=== PATIENT | female | born 2000 | race Caucasian/White ===

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

== ENCOUNTER → 2018-02-09 16:47 | Outpatient (CLI) | payer MEDICAID, SELFPAY | PROVIDERS: Visit Provider Obstetrics & Gynecology | DX: Z34.80 Encounter for supervision of other normal pregnancy, unspecified trimester (principal); Z34.90 Encounter for supervision of normal pregnancy, unspecified, unspecified trimester | CPT/HCPCS: 86403 ==

== ENCOUNTER 2018-02-18 12:57 | Outpatient (CLI) | payer MEDICAID, SELFPAY ==
[2018-02-18 13:19] VITALS: BP 148/78; PULSE 81; RESP 22; TEMP 36.6; O2SAT 96; BMI 35.3
[2018-02-18 13:33] LABS: Microscopic, Urine URINE MICROSCOPIC (MICROSCOPIC)
[2018-02-18 13:40] LABS: Appearance,Urine SL CLOUDY (Clear); Bilirubin,Urine Negative (Negative); Blood, Urine TRACE-I (Negative); Color,Urine YELLOW (Yellow); Glucose,Urine (UA) Negative (Negative); Ketones,Urine Negative (Negative); Leukocyte Esterase,Urine 1+ (Negative); Nitrate,Urine Negative (Negative); Protein,Urine Negative (Negative); Specific Gravity, Urine 1.015 (1.005-1.030); Urobilinogen,Urine 0.2 EU/dl (0.2)
[2018-02-18 13:52] LABS: Bacteria,Urine 4+ /lpf
== END 2018-02-18 14:20 | disposition home or self-care (01) ==
LOC: OBOUT 12:59 → OB 12:59
PROVIDERS: PCP Family Medicine; Visit Provider Nurse Practitioner Obstetrics & Gynecology
DX: O60.03 Preterm labor without delivery, third trimester (principal); Z3A.37 37 weeks gestation of pregnancy
CPT/HCPCS: 59025; 81001; 87086; 96372

== ENCOUNTER 2018-02-18 18:22 | Inpatient (IN) ==
[2018-02-18 19:32] LABS: Amphetamine/Metha Screen,Urine Negative ng/mL (<1000); Barbiturates Screen,Urine Negative ng/mL (<200); Benzodiazepines Screen,Urine Negative ng/mL (<200); Cannabinoid Screen,Urine Positive ng/mL (<50); Cocaine Screen,Urine Negative ng/mL (<300); Methadone Screen,Urine Negative ng/mL (<300); Opiate Screen,Urine Negative ng/mL (<300); Phencyclidine Screen,Urine Negative ng/mL (<25)
[2018-02-18 23:55] LABS: Basophils % 0.1 % (0.1-2.0); Eosinophils % 0.1 % (0.1-12.0); Hematocrit 38.5 % (37.0-47.0); Hemoglobin 12.7 g/dL (12.2-16.2); Lymphocytes # 0.9 K/mm3 (0.7-4.5); Mean Corpuscular HGB Conc 33.1 g/dL (31.8-35.4); Mean Corpuscular Volume 84.6 fl (81-99); Mean Platelet Volume 6.5 fl (7.4-10.4); Monocytes # 0.4 K/mm3 (0.1-1.0); Monocytes % 1.7 % (1.7-9.3); Neutrophils % 94.1 % (37.0-80.0); Platelet Count 399 K/mm3 (142-424); Red Blood Count 4.55 M/mm3 (4.20-5.40); Red Cell Distribution Width 13.3 % (11.5-17.5)
[2018-02-18 23:57] LABS: White Blood Count 22.3 K/mm3 (4.5-13.0)
[2018-02-19 00:19] LABS: Lymphocytes % 4 % (10-50); Monocytes % 1 % (2-9); Neutrophils % 84 % (42-76); RBC Morphology Normal; Rouleaux 1+; Total Cells Counted 100
--- NOTE | 2018-02-19 01:23 | Progress Note ---
[facility] Anesthesia Checklist - Patient Identification Patient Identification: Arm Band, Verbal (Name & ) - Structural Data Admitted From: Inpatient Planned Operative Procedure/s: labor epidural Consent for Planned Operative Procedure(s) Verified: Yes Verified Documents: Surgical Consent, History and Physical - Chart Verification Results Verified: CBC - Additional verifications Patient : Yes Anesthesia Reactions: No - Airway Assessment C-Spine Mobility Assessed: Yes TMJ Mobility Assessed: Yes Dentition: Good Dentition - Neurological Assessment Level of Consciousness: Awake Hx Seizures: No Numbness or tingling in extremities: No - Anesthesia Plan Anesthesia Risk discussed: Yes Anesthesia Plan: Verified ASA Class: III Anesthesia Type: Epidural [facility] History I have reviewed the patient's past medical history: Yes Medical History: Reports:: Asthma, Depression Denies:: Diabetes Mellitus Type 1, Hyperlipidemia, Hypertension, MRSA, Sei zures Other Medical History: Reports: Other (self mutilation) Laterality Cases: Bilateral: Tonsillectomy Other Surgeries: Yes: Colonoscopy. No: Amputation: No Fractures: No - *Social History Smoking Status: Current every day smoker Tobacco Type: cigarettes Alcohol Intake: never Substance Use Type: marijuana Occupational Status: employed Housing: house Household Members: family - Psychiatric History Pschychiatric History:: Reports:: Depression *Family Hx:: Cancer, Heart Attack, Diabetes, Hypertension, Asthma Para: 0
--- NOTE | 2018-02-19 05:27 | History & Physical Report ---
OB - H&P: HPI Antepartum - History of Present Illness Chief complaint: Contractions History of present illness: She is a 17-year-old 1 para 0 at 37+ weeks gestational age. She came in having early contractions today afternoon and received 1 dose of Brethine but was discharged home. She did not change her cervix. She subsequently was readmitted with active labor and was found to be 3-4 cm dilated. We attempted to stop her labor but she progressed. As a result of that we will expect a vaginal delivery. - History of Present Criteria for establishing EDC:: LMP confirmed by 1st trimester US care: good care Ultrasounds: normal 1st trimester US, normal mid trimester US Obstetrical complications: none Medical complications: other [facility] History I have reviewed the patient's past medical history: Yes Medical History: Reports:: Asthma, Depression Denies:: Diabetes Mellitus Type 1, Hyperlipidemia, Hypertension, MRSA, Seizures Other Medical History: Reports: Other (self mutilation) Laterality Cases: Bilateral: Tonsillectomy Other Surgeries: Yes: Colonoscopy. No: Amputation: No Fractures: No - *Social History Smoking Status: Current every day smoker Tobacco Type: cigarettes Alcohol Intake: never Substance Use Type: marijuana Occupational Status: employed Housing: house Household Members: family - Psychiatric History Pschychiatric History:: Reports:: Depression *Family Hx:: Cancer, Heart Attack, Diabetes, Hypertension, Asthma Para: 0 Review of Systems - Review of Systems Review of systems:: pertinent systems reviewed and negative unless documented below Meds Home Medications Medication Instructions Recorded Confirmed Type 1 tab PO QHS 08/08/17 02/18/18 History vitamin,calcium,vcuquwgn-hrcb-utuds acid tablet Citalopram Hydrobromide [Celexa] 40 mg PO DAILY 02/18/18 02/18/18 History Allergies Allergy/AdvReac Type Severity Reaction Status Date / Time No Known Allergies Allergy Verified 02/15/18 12:05 OB - H&P: Exam - Physical Exam Vital signs: Temp Pulse Resp BP Pulse Ox 98.1 F 95 H 20 158/97 H 100 02/18/18 18:39 02/18/18 18:39 02/18/18 18:39 02/18/18 18:39 02/18/18 18:39 - Constitutional no acute distress - Routine HEENT Exam Head: Present: normocephalic Eye: Present: EOMI, PERRL ENT: Present: mucous membranes moist - Routine Neck Exam Present: supple, full ROM - Routine Respiratory Exam Absent: accessory muscle use (good air entry bilaterally), respiratory distress, wheezes, crackles - Routine Cardiovascular Exam Present: RRR. Absent: murmur - Routine Abdominal Exam Present: soft, normoactive bowel sounds. Absent: tenderness, distended, guarding - Routine Rectal Exam Patient deferred: visual exam, digital exam - Routine Exam Patient deferred: external exam, groin exam, perineal exam - Routine Extremities Exam Present: full ROM. Absent: cyanosis, edema - Routine Skin Exam Present: intact. Absent: cyanosis - Routine Neurological Exam Present: alert, oriented X3 - Routine Psychiatric Exam Present: normal affect OB - Results - Labs Labs: Short CBC 02/18/18 Range/Units 23:40 WBC 22.3 H* (4.5-13.0) K/mm3 Hgb 12.7 (12.2-16.2) g/dL Hct 38.5 (37.0-47.0) % Plt Count 399 (142-424) K/mm3 OB - A/P Antepartum (1) Maternal obesity syndrome, antepartum Current visit: Yes Status: Acute (2) Depression affecting Problem details: Celexa Current visit: No Status: Acute (3) Intrauterine in teenager Current visit: No Status: Acute (4) Rsatb-fwg-wquwy fetus Current visit: No Status: Acute (5) Normal delivery at term Current visit: Yes Status: Acute - Additional Plan Planning to breastfeed?: No Plan: expectant management Additional Information:: She is in active labor and has progressed to full dilation under labor epidural. We will expect a vaginal delivery.
--- NOTE | 2018-02-19 05:28 | Progress Note ---
Labor Note - Subjective: Date: 02/19/18 Time: 05:27 regular contraction - Objective: NST:: Reactive Contractions:: every 2-3 minutes Cervical Dilation:: 9-10 Effacement:: 100% Station: +2 Membranes: artificially ruptured Comment:: Clear fluid - Fetus: Monitoring?: Yes monitoring type:: External - Assessment: Labor progressing?: Yes Cephalopelvic disproportion?: No Patient Problems: All Active Problems UTI (urinary tract infection) (Acute) Sciatica (Acute) Abscess of skin or subcutaneous tissue (Acute) Maternal obesity syndrome, antepartum (Acute) Normal delivery at term (Acute) Jasxg-qty-wawvq fetus (Acute) Post traumatic stress disorder (PTSD) (Acute) Smoking (tobacco) complicating , second trimester (Acute) Depression affecting (Acute) History of self mutilation (Chronic) Medication exposure during first trimester of (Acute) Positive urine drug screen (Acute) Intrauterine in teenager (Acute) (Acute) Hand contusion (Acute) - Plan: Anesthesia for epidural?: Yes Continue to labor down?: Yes Plan for ?: No Continue to monitor?: Yes Start pushing?: Yes Comment:: She is fully dilated and station +2. I ruptured her membranes and there was a small amount of clear fluid. We will have her start pushing and expect vaginal delivery.
--- NOTE | 2018-02-19 05:51 | Procedure Note ---
- Delivery Note Delivery Date:: 02/19/18 Delivery Time:: 05:34 Anesthesia Type: Epidural Was labor medically induced?: No Induction method: none Gestational age (weeks): 37 delivered prior to 39 weeks?: Yes Justification for early elective delivery:: Active Labor Infant Gender: Female at 1 minute: 7 at 5 minutes: 9 LAC or MLE?: LAC Delivery Procedure:: She is a 17-year-old 1 para 0 at 37 and 5 weeks gestational age. She came in in active labor. She progressed under labor epidural to full dilation and delivered spontaneously a live born female child at 5:34 AM on the morning of February 19, 2018. On deliver the head the anterior shoulder then rapidly delivered followed by the rest of the infant's body atraumatically. The baby cried spontaneously. The oropharynx and nasopharynx were bulb suction. We allow the cord to continue to pulsate for approximately 1 minute. We then doubly clamped the cord and cut the cord and the baby was placed on the mother's abdomen for further care. The nurses assigned Apgars of 7 at 1 minute and 9 at 5 minutes. We then obtained cord blood as well as cord pH. Using gentle traction on the cord and countertraction the fundus I was able to easily deliver the placenta intact. He had a normal three-vessel cord. She had a small second-degree tear that was repaired with 3-0 Vicryl Rapide suture to the superficial tissues in 2-0 Vicryl to suture to the deep tissues. She has a positive blood, she is rubella immune and was group B streptococcus negative. She plans to bottlefeed. Her moose hunter is Dr. Austin. Estimated blood loss was approximately 400 cc. Laceration:: vaginal Placental Delivery Description: Spontaneous
[2018-02-20 06:52] LABS: Hematocrit 36.6 % (37.0-47.0); Hemoglobin 11.8 g/dL (12.2-16.2)
--- NOTE | 2018-02-20 08:22 | Progress Note ---
Internal Medicine - PN: Subj *Date: 02/20/18 *Time: 08:22 Interval history: She is doing very. She is eating and drinking and ambulating. She is breast- feeding. Her lochia is normal. Exam Vital signs and Labs for Last 24 Hours: Temp Pulse Resp BP Pulse Ox 98.1 F 95 H 20 158/97 H 100 02/18/18 18:39 02/18/18 18:39 02/18/18 18:39 02/18/18 18:39 02/18/18 18:39 Laboratory Results - last 24 hr 02/18/18 21:46: POC Glucose 155 H 02/20/18 06:12: Hgb 11.8 L, Hct 36.6 L I & O for Last 24 hours: Intake & Output 02/17/18 02/18/18 02/19/18 02/20/18 11:59 11:59 11:59 11:59 Weight 206 lb - Constitutional no acute distress Assessment and Plan (1) Maternal obesity syndrome, antepartum Current visit: Yes Status: Acute Category: Medical Code(s): O99.210 - Obesity complicating , unspecified trimester (2) Depression affecting Problem details: Celexa Current visit: No Status: Acute Category: Medical Code(s): O99.340 - Other mental disorders complicating , unspecified trimester; F32.9 - Major depressive disorder, single episode, unspecified (3) Intrauterine in teenager Current visit: No Status: Acute Category: Medical Code(s): Z34.80 - Encounter for supervision of other normal , unspecified trimester (4) Llwuj-hrg-jzsrz fetus Current visit: No Status: Acute Category: Medical (5) Normal delivery at term Current visit: Yes Status: Acute Category: Medical Code(s): O80 - Encounter for full-term uncomplicated delivery - Assessment and plan all Dx Assessment and Plan for all problems:: She continues to do well 1 day . We will plan to send her home tomorrow.
--- NOTE | 2018-02-21 09:09 | Discharge Summary ---
DS: Providers Date of admission: 02/18/18 20:57 Primary care physician: Emy Austin MD Attending physician on admission: Luis Acosta Consults: 02/19/18 10:10 Care Management Consult [Consult to Case Management] [CONS] Routine Comment: + MJ DURING AND ON ADMISSION Attending physician on discharge: Radha Cornelius Anticipated date of discharge: 02/21/18 DS: Diagnosis - Discharge Diagnosis (1) Intrauterine in teenager Status: Acute (2) Normal delivery at term Status: Acute (3) Maternal obesity syndrome, antepartum Status: Acute (4) Depression affecting Status: Acute Problem details: Celexa (5) Tfldb-esp-enlqi fetus Status: Acute (6) Anemia associated with acute blood loss Status: Acute DS: Medications - Discharge Medications Prescriptions: New [place] [Tucks 40 Pads/Box] 1 each TP NEEDED PRN box PRN Reason: Hemorrhoids Ibuprofen [Motrin 400mg tablet] 400 mg PO Q4HP PRN #30 tablet PRN Reason: Mild To Moderate Pain Continue vitamin,calcium,wshnmily-bbpa-hzovc acid tablet 1 tab PO QHS Citalopram Hydrobromide [Celexa] 40 mg PO DAILY hydrOXYzine pamoate [Vistaril] 25 mg PO HSP PRN PRN Reason: nausea and vomiting OB - DS: Summary Hospital course: Ms. Noriega is a 17 year old female admitted in active labor, with normal . complicated by multiple pre-existing psychiatric issues and non- complicance with psych provider f/u, along with tobacco abuse and daily THC use. course uneventful, with normal clinical progression. medical services assistant consult was obtained prior to discharge. She is discharged home with only motrin for treatment, and advised to continue psych meds as currently taking, with immediate f/u with psych provider. Given literature for depression and counseled to call with any concerns. Routine screening for depression while inpatient did not identify any concerns at this time. She will f/u in 2 weeks in office. Time spent discussing smoking cessation with patient: 3 to 10 minutes - Time Spent with Patient Total time spent providing and/or coordinating discharge services: Exam Vital signs and Labs for Last 24 Hours: Temp Pulse Resp BP Pulse Ox 98.1 F 95 H 20 158/97 H 100 02/18/18 18:39 02/18/18 18:39 02/18/18 18:39 02/18/18 18:39 02/18/18 18:39 I & O for Last 24 hours: Intake & Output 02/18/18 02/19/18 02/20/18 02/21/18 11:59 11:59 11:59 11:59 Weight 206 lb Narrative: CONSTITUTIONAL: no acute distress HEENT: mucous membranes moist PULMONARY: breathing unlabored without audible wheezes CV: no tachycardia or visible JVD; normal LE peripheral pulses ABD: soft, NT/ND, no guarding : fundus firm at/below umbilicus SKIN: no visible rash or lesions EXT: 1+ edema LEs NEURO: alert/oriented, no altered mental status PSYCH: appropriate mood and demeanor without visible anxiety/depression Discharge Plan - Patient Discharge Instructions ACTIVITY: Continue current activity DIET: regular diet Patient Instructions: Depression - Follow up Plan Disposition: Home, Self-[facility]itentiary Medications: Home Medications Medication Instructions Recorded Confirmed Type 1 tab PO QHS 08/08/17 02/18/18 History vitamin,calcium,ozpxtepi-ijtp-hqvzy acid tablet Citalopram Hydrobromide [Celexa] 40 mg PO DAILY 02/18/18 02/18/18 History hydrOXYzine pamoate [Vistaril] 25 mg PO HSP PRN 02/19/18 02/19/18 History Prescriptions/Medication Reconciliation: No Action vitamin,calcium,tfjokgra-earh-ideia acid tablet 1 tab PO QHS Citalopram Hydrobromide [Celexa] 40 mg PO DAILY hydrOXYzine pamoate [Vistaril] 25 mg PO HSP PRN PRN Reason: nausea and vomiting
[2018-02-21 11:26] VITALS: BP 132/83
== END 2018-02-21 13:10 | disposition home or self-care (01) ==
LOC: OBOUT 18:22 → OB 18:25
PROVIDERS: ADMIT Nurse Practitioner Obstetrics & Gynecology; ATTEND Nurse Practitioner Obstetrics & Gynecology

== ENCOUNTER → 2018-04-04 17:48 | Outpatient (CLI) | payer MEDICAID, SELFPAY ==
[2018-04-08 17:15] LABS: Neisseria gonorrhoeae, NAA Negative (Negative)
== END ==
PROVIDERS: Visit Provider Obstetrics & Gynecology
DX: Z39.2 Encounter for routine postpartum follow-up (principal)
CPT/HCPCS: 87491; 87591

== ENCOUNTER → 2018-06-11 14:00 | Outpatient (CLI) | payer MEDICAID, SELFPAY ==
[2018-06-11 14:14] LABS: Basophils # 0.1 K/mm3 (0-0.2); Basophils % 0.5 % (0.1-2.0); Eosinophils # 0.3 K/mm3 (0.0-0.4); Eosinophils % 3.2 % (0.1-12.0); Hematocrit 47.4 % (37.0-47.0); Hemoglobin 15.1 g/dL (12.2-16.2); Lymphocytes # 2.2 K/mm3 (0.7-4.5); Lymphocytes % 22.8 % (10-50); Mean Corpuscular HGB Conc 31.8 g/dL (31.8-35.4); Mean Corpuscular Hemoglobin 25.9 pg (27.0-31.2); Mean Corpuscular Volume 81.4 fl (81-99); Mean Platelet Volume 7.5 fl (7.4-10.4); Monocytes # 0.5 K/mm3 (0.1-1.0); Monocytes % 5.2 % (1.7-9.3); Neutrophils # 6.5 K/mm3 (1.8-7.8); Neutrophils % 68.3 % (37.0-80.0); Platelet Count 578 K/mm3 (142-424); Red Blood Count 5.82 M/mm3 (4.20-5.40); Red Cell Distribution Width 13.2 % (11.5-17.5); White Blood Count 9.6 K/mm3 (4.5-13.0)
[2018-06-11 15:14] LABS: Erythrocyte Sedimentation Rate 27 mm/hr (0-20)
[2018-06-11 20:03] LABS: Alanine Aminotransferase 24 U/L (12-78); Albumin Level 4.1 gm/dL (3.4-5.0); Alkaline Phosphatase 133 U/L (46-116); Anion Gap 18.1 mEq/L (5-15); Aspartate Amino Transferase 14 U/L (15-37); Bilirubin,Total 0.4 mg/dL (0.2-1.0); Blood Urea Nitrogen 9 mg/dL (7-18); C-Reactive Protein 0.7 mg/L (0.0-0.9); Calcium 9.4 mg/dL (8.5-10.1); Carbon Dioxide 24 mmol/L (21.0-32.0); Chloride 102 mmol/L (98-107); Chol/HDL Ratio 4.5 (1-3.5); Cholesterol 191 mg/dL (140-200); Creatine Kinase 61 U/L (26-192); Creatinine,Serum 0.67 mg/dL (0.55-1.02); Estimated Glomerular Filt Rate 112 ml/min (>60); GFR (African American) 136 ML/MIN (>60); Glucose 87 mg/dL (74-106); HDL Cholesterol 42 mg/dL (29-89); LDL Cholesterol 131 mg/dL (0-130); Potassium 4.1 mmoL/L (3.5-5.1); Sodium 140 mmol/L (136-145); T4 (Thyroxine) 8.8 ug/dl (5.4-10.6); Thyroid Stimulating Hormone 1.16 uIU/ml (0.516-4.13); Total Protein,Serum 8.1 gm/dL (6.4-8.2); Triglycerides 92 mg/dL (30-200); VLDL Cholesterol 18 mg/dL (0-40)
[2018-06-12 07:02] LABS: Vitamin D 25 Hydroxy 16.1 ng/mL (30.0-100.0)
== END ==
PROVIDERS: Visit Provider Emergency Medicine
DX: M54.30 Sciatica, unspecified side (principal)
CPT/HCPCS: 80053; 80061; 82550; 82652; 84436; 84443; 85025; 85651; 86140

== ENCOUNTER 2018-06-30 19:07 | Emergency (ER) | payer MEDICAID, SELFPAY ==
[2018-06-30 19:28] VITALS: BP 112/51; PULSE 60; RESP 16; TEMP 36.9; O2SAT 96; BMI 33.6
--- NOTE | 2018-06-30 19:30 | XR_ITS ---
XR knee LT 3V HISTORY: Left knee pain ITS.REASON: FALL ORDERING PHYSICIAN: Shagufta Soriano APRN PATIENT AGE: 18 years COMPARISON: Right knee same date FINDINGS: No fracture or dislocation. No lytic or blastic change. Normal mineralization. No significant arthritic changes evident. No other significant findings IMPRESSION: Negative Knee
--- NOTE | 2018-06-30 19:30 | XR_ITS ---
XR knee RT 3V HISTORY: Right knee pain ITS.REASON: FALL ORDERING PHYSICIAN: Shagufta Soriano APRN PATIENT AGE: 18 years COMPARISON: Left knee same date FINDINGS: No fracture or dislocation. No lytic or blastic change. Normal mineralization. No significant arthritic changes evident. No other significant findings IMPRESSION: Negative Knee
--- NOTE | 2018-06-30 19:31 | XR_ITS ---
XR hip LT 2-3V w/pelvis HISTORY: Left hip pain ITS.REASON: FALL ORDERING PHYSICIAN: Shagufta Soriano APRN PATIENT AGE: 18 years COMPARISON: CT scan abdomen pelvis 10/27/2016 FINDINGS: No fracture or dislocation is evident. No significant degenerative change. No lytic or blastic change. Unremarkable soft tissues IMPRESSION: Negative hip
[2018-06-30 19:36] VITALS: BP 112/51; PULSE 60; RESP 16; TEMP 36.9; O2SAT 96; BMI 33.6
--- NOTE | 2018-06-30 20:04 | HMH.EDUTC ---
[facility] [place] Clinical Impression: Fall Qualifiers: Encounter type: initial encounter Qualified Code(s): W19.XXXA - Unspecified fall, initial encounter Disposition: Home, Self-Care Condition on Discharge: Good Instructions: DI for Knee Pain, Contusion, DI for Contusion Additional Instructions: *weight bearing as tolerated use crutches that you said you had at home to help with walking *RICE, Rest the extremity, Ice 15-20 minutes 3-4 times daily, Compress- wear the leonid wrap as discussed as much as possible to help reduce swelling and pain, Elevate the extremity when at rest *Leonid wrap is for support and help control swelling, use it except in the shower. Be sure that is not to tight but not to loose either *Elevate when resting *Ibuprofen 600-800mg every 6-8 hours as needed for pain an inflammation. If need something more can take Tylenol in between doses of Ibuprofen to help Immediately follow up with your family doctor for new or worsening of symptoms, or no noticeable improvement over the next 3-5 days Follow up with family doctor for further treatment and evaluation if no improvement or any worsening of symptoms Return if needed Straight to ER if any life threatening symptoms Referrals: Kadeem Guerrero MD [Primary Care Provider] - As needed Time of Disposition: 20:12 Medical Decision Making - Pal Inquiry Pt receiving controlled substance: No Pal was queried for this patient: No Vital Signs: 06/30/18 19:28 06/30/18 19:36 Temperature 98.4 F 98.4 F Temperature Source Oral Oral Pulse Rate [Right] 60 60 Respiratory Rate 16 16 Blood Pressure [Right Arm] 112/51 L 112/51 L Blood Pressure Mean [Right Arm] 71 71 Blood Pressure Source [Right Arm] Automatic Cuff Automatic Cuff Blood Pressure Position [Right Arm] Sitting Sitting 02 Sat by Pulse Oximetry 96 96 Oxygen Delivery Method Room Air Room Air Orders (Tests/Meds): ORDERS Category Date Time Status XR hip LT 2-3V w/pelvis Stat Exams 06/30/18 19:31 Taken XR knee LT 3V Stat Exams 06/30/18 19:30 Taken XR knee RT 3V Stat Exams 06/30/18 19:30 Taken - Radiology Data #1 Image(s): Hip, Knee Image Reviewed: Yes I reviewed the patient's radiology image w/the ED provider Preliminary Findings: No Fracture Seen Xrays discussed with Dr Tilley Left knee - negative no fracture, Right knee- Negative knee. Left hip - negative hip [facility] [place] HPI - General Stated complaint: Both Knees and back pain Time Seen by Provider: 06/30/18 20:04 Mode of Arrival: Family Vehicle Source of Information: Patient Limitations: No Limitations Description of Symptoms (Recalled from Triage Doc. by RN): s/p fall yesterday. c/o bilateral knee pain and left hip pain HEENT Symptoms (Recalled from RN notes): No Resp Symptoms (Recalled from RN notes): No Skin Symptoms (Recalled from RN notes): No MS Symptoms (Recalled from RN notes): Yes Functional Status (Recalled from RN notes): n/a - History of Present Illness Provider Complaint: Patient states that she was at home yesterday and was walking on tile floor with baby in her arms when she slipped and fell and landed on her knees State that she didn't catch herself trying to protect the baby State that ever since she has been feeling sore in her left him and both knees States that she has been up walking on them but they feel sore. State that today she decided to come in to get checked to make sure she didn't break anything - Related Data Home Medications Medication Instructions Recorded Confirmed Citalopram Hydrobromide [Celexa] 40 mg PO DAILY 02/18/18 06/22/18 albuterol sulfate HFA 90 1 puff INHALATION Q6H PRN 06/11/18 06/22/18 mcg/actuation aerosol inhaler Previous Rx's Medication Instructions Recorded cholecalciferol (vitamin D3) 1,000 1,000 unit PO DAILY #90 cap 06/13/18 unit capsule ergocalciferol (vitamin D2) 50,000 50,000 unit PO QWEEK 90 Days #12 06/13/18 unit capsule cap gabapentin 300 mg capsule 300
--- NOTE | 2018-06-30 20:07 | ED_ITS ---
[facility] – [place] Disposition Clinical Impression: Fall Qualifiers: Encounter type: initial encounter Qualified Code(s): W19.XXXA - Unspecified fall, initial encounter Disposition: Home, Self-Care Condition on Discharge: Good Instructions: DI for Knee Pain, Contusion, DI for Contusion Additional Instructions: *weight bearing as tolerated use crutches that you said you had at home to help with walking *RICE, Rest the extremity, Ice 15-20 minutes 3-4 times daily, Compress- wear the leonid wrap as discussed as much as possible to help reduce swelling and pain, Elevate the extremity when at rest *Leonid wrap is for support and help control swelling, use it except in the shower. Be sure that is not to tight but not to loose either *Elevate when resting *Ibuprofen 600-800mg every 6-8 hours as needed for pain an inflammation. If need something more can take Tylenol in between doses of Ibuprofen to help Immediately follow up with your family doctor for new or worsening of symptoms, or no noticeable improvement over the next 3-5 days Follow up with family doctor for further treatment and evaluation if no improvement or any worsening of symptoms Return if needed Straight to ER if any life threatening symptoms Referrals: Kadeem Guerrero MD [Primary Care Provider] - As needed Time of Disposition: 20:12 Medical Decision Making - Pal Inquiry Pt receiving controlled substance: No Pal was queried for this patient: No Vital Signs: 06/30/18 19:28 06/30/18 19:36 Temperature 98.4 F 98.4 F Temperature Source Oral Oral Pulse Rate [Right] 60 60 Respiratory Rate 16 16 Blood Pressure [Right Arm] 112/51 L 112/51 L Blood Pressure Mean [Right Arm] 71 71 Blood Pressure Source [Right Arm] Automatic Cuff Automatic Cuff Blood Pressure Position [Right Arm] Sitting Sitting 02 Sat by Pulse Oximetry 96 96 Oxygen Delivery Method Room Air Room Air Orders (Tests/Meds): ORDERS Category Date Time Status XR hip LT 2-3V w/pelvis Stat Exams 06/30/18 19:31 Taken XR knee LT 3V Stat Exams 06/30/18 19:30 Taken XR knee RT 3V Stat Exams 06/30/18 19:30 Taken - Radiology Data #1 Image(s): Hip, Knee Image Reviewed: Yes I reviewed the patient's radiology image w/the ED provider Preliminary Findings: No Fracture Seen Xrays discussed with Dr Tilley Left knee - negative no fracture, Right knee- Negative knee. Left hip - negative hip [facility] [place] HPI - General Stated complaint: Both Knees and back pain Time Seen by Provider: 06/30/18 20:04 Mode of Arrival: Family Vehicle Source of Information: Patient Limitations: No Limitations Description of Symptoms (Recalled from Triage Doc. by RN): s/p fall yesterday. c/o bilateral knee pain and left hip pain HEENT Symptoms (Recalled from RN notes): No Resp Symptoms (Recalled from RN notes): No Skin Symptoms (Recalled from RN notes): No MS Symptoms (Recalled from RN notes): Yes Functional Status (Recalled from RN notes): n/a - History of Present Illness Provider Complaint: Patient states that she was at home yesterday and was walking on tile floor with baby in her arms when she slipped and fell and landed on her knees State that she didn't catch herself trying to protect the baby State that ever since she has been feeling sore in her left him and both knees States that she has been up walking on them but they feel sore. State that today she decided
[2018-06-30 20:13] VITALS: BP 112/51; PULSE 60; RESP 16; TEMP 36.9; O2SAT 96
== END 2018-06-30 20:15 | disposition home or self-care (01) ==
PROVIDERS: Emergency Provider Nurse Practitioner; PCP Emergency Medicine
DX: S80.02XA Contusion of left knee, initial encounter (principal); S80.01XA Contusion of right knee, initial encounter; S70.02XA Contusion of left hip, initial encounter; W01.0XXA Fall on same level from slipping, tripping and stumbling without subsequent striking against object, initial encounter; Y92.019 Unspecified place in single-family (private) house as the place of occurrence of the external cause; F17.210 Nicotine dependence, cigarettes, uncomplicated
CPT/HCPCS: 73502; 73562; 99201

== ENCOUNTER 2018-09-02 16:46 | Emergency (ER) | payer MEDICAID, SELFPAY ==
[2018-09-02 16:56] VITALS: BP 128/86; PULSE 73; RESP 16; TEMP 36.6; O2SAT 98; BMI 29.8
[2018-09-02 17:06] LABS: Microscopic, Urine URINE MICROSCOPIC (MICROSCOPIC)
[2018-09-02 17:08] LABS: Appearance,Urine CLEAR (Clear); Bilirubin,Urine Negative (Negative); Blood, Urine Negative (Negative); Color,Urine YELLOW (Yellow); Glucose,Urine (UA) Negative (Negative); Ketones,Urine Negative (Negative); Leukocyte Esterase,Urine Negative (Negative); Nitrate,Urine Negative (Negative); PH,Urine 7.5 (5.0-8.5); Protein,Urine Negative (Negative); Urobilinogen,Urine 0.2 EU/dl (0.2)
[2018-09-02 17:09] LABS: Urine Pregnancy, HCG Qual. Negative (Negative)
[2018-09-02 17:16] LABS: Bacteria,Urine 2+ /lpf
[2018-09-02 17:24] LABS: Basophils # 0.1 K/mm3 (0-0.2); Basophils % 0.5 % (0.1-2.0); Eosinophils # 0.3 K/mm3 (0.0-0.4); Hematocrit 43.8 % (37.0-47.0); Hemoglobin 13.5 g/dL (12.2-16.2); Lymphocytes # 2.4 K/mm3 (0.7-4.5); Lymphocytes % 19.2 % (10-50); Mean Corpuscular HGB Conc 30.9 g/dL (31.8-35.4); Mean Corpuscular Hemoglobin 24.6 pg (27.0-31.2); Mean Corpuscular Volume 79.8 fl (81-99); Mean Platelet Volume 6.6 fl (7.4-10.4); Monocytes # 0.9 K/mm3 (0.1-1.0); Monocytes % 7.2 % (1.7-9.3); Neutrophils # 8.8 K/mm3 (1.8-7.8); Neutrophils % 71.2 % (37.0-80.0); Platelet Count 454 K/mm3 (142-424); Red Blood Count 5.49 M/mm3 (4.20-5.40); Red Cell Distribution Width 13.8 % (11.5-17.5); White Blood Count 12.4 K/mm3 (4.5-13.0)
[2018-09-02 17:37] LABS: Alanine Aminotransferase 26 U/L (12-78); Albumin Level 3.6 gm/dL (3.4-5.0); Albumin/Globulin Ratio 0.9 (1.1-1.8); Alkaline Phosphatase 109 U/L (46-116); Anion Gap 13.7 mEq/L (5-15); Aspartate Amino Transferase 13 U/L (15-37); Bilirubin,Total 0.4 mg/dL (0.2-1.0); Blood Urea Nitrogen 9 mg/dL (7-18); Carbon Dioxide 27 mmol/L (21.0-32.0); Chloride 102 mmol/L (98-107); Creatinine Clearance Estimated 153 mL/min (50-200); Creatinine,Serum 0.73 mg/dL (0.55-1.02); Estimated Glomerular Filt Rate 102 ml/min (>60); GFR (African American) 123 ML/MIN (>60); Glucose 99 mg/dL (74-106); Potassium 3.7 mmoL/L (3.5-5.1); Sodium 139 mmol/L (136-145); Total Protein,Serum 7.6 gm/dL (6.4-8.2)
--- NOTE | 2018-09-02 17:58 | HMH.EDABDPAI ---
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 Off work two days Prescriptions: Diclofenac Sodium [Diclofenac 75mg Tab] 75 mg PO BID 10 Days #20 tab Referrals: Kadeem Guerrero MD [Primary Care Provider] - Time of Disposition: :22 - Critical Care Critical Care Time: No Attestation: On 09/02/18, the high probability of a clinically significant, sudden or life threatening deterioration of the following system(s) required my full and direct attention, intervention and personal management. The time I documented below is in addition to time spent performing reported procedures but includes the following listed in this critical care notation. Medical Decision Making - Medical Records Medical records reviewed: Yes: I reviewed the patient's medical records. - Pal Inquiry Pt receiving controlled substance: No Pal was queried for this patient: No Vital Signs: 09/02/18 16:56 Temperature 97.9 F Temperature Source Oral Pulse Rate [Left Radial] 73 Respiratory Rate 16 Blood Pressure [Right Arm] 128/86 Blood Pressure Mean [Right Arm] 100 Blood Pressure Source [Right Arm] Automatic Cuff Blood Pressure Position [Right Arm] Sitting 02 Sat by Pulse Oximetry 98 Oxygen Delivery Method Room Air - Lab Data Lab results reviewed: Yes: I reviewed the patient's lab results. Lab Results 09/02/18 16:50: Urine Color Yellow, Urine Appearance Clear, Urine pH 7.5, Ur Specific Max 1.020, Urine Protein Negative, Urine Glucose (UA) Negative, Urine Ketones Negative, Urine Blood Negative, Urine Nitrate Negative, Urine Bilirubin Negative, Urine Urobilinogen 0.2, Ur Leukocyte Esterase Negative, Urine WBC 3-5, Ur Squamous Epith Cells 3-5, Urine Bacteria 2+ 09/02/18 16:50: Urine HCG, Qual Negative 09/02/18 17:05: WBC 12.4, RBC 5.49 H, Hgb 13.5, Hct 43.8, MCV 79.8 L, MCH 24.6 L, MCHC 30.9 L, RDW 13.8, Plt Count 454 H, MPV 6.6 L, Neut % (Auto) 71.2, Lymph % (Auto) 19.2, [place] % (Auto) 7.2, Eos % (Auto) 2.0, Baso % (Auto) 0.5, Neut # (Auto) 8.8 H, Lymph # (Auto) 2.4, [place] # (Auto) 0.9, Eos # (Auto) 0.3, Baso # (Auto) 0.1 09/02/18 17:05: Sodium 139, Potassium 3.7, Chloride 102, Carbon Dioxide 27, Anion Gap 13.7, BUN 9, Creatinine 0.73, Estimated Creat Clear 153, Estimated GFR 102, Est GFR ( Amer) 123, Glucose 99, Calcium 9.0, Total Bilirubin 0.4, AST 13 L, ALT 26, Alkaline Phosphatase 109, Total Protein 7.6, Albumin 3.6, Globulin 4.0 H, Albumin/Globulin Ratio 0.9 L Result diagrams: 09/02/18 17:05 09/02/18 17:05 Orders (Tests/Meds): ED MEDICATIONS Discontinued Medications Generic Name Dose Route Start Last Admin Trade Name Freq PRN Reason Stop Dose Admin Ketorolac Tromethamine 30 mg 09/02/18 18:04 09/02/18 18:08 Toradol 30mg/Ml Vial IV 09/02/18 18:05 30 mg ONCE ONE Administration ORDERS Category Date Time Status Urine Culture Stat Micro 09/02/18 16:50 Received Abdominal Pain HPI - General Chief Complaint: Abdominal Pain Stated Complaint: severe stomach pain Time Seen by Provider: 09/02/18 18:03 Mode of Arrival: Ambulatory Source of Information: Patient Limitations: No Limitations Description of Symptoms (Recalled from ER Triage Doc. by RN): to ed per pvt car with c/o lower abd pain starting this am. c/o urinary freq x 1 month. +nausea, denies any vomiting, fever, chills, vag discharge. - Related Data Home Medications Medication Instructions Recorded Confirmed Cholecalciferol (Vitamin D3) 1,000 unit PO DAILY 09/02/18 09/02/18 [Vitamin D3 1,000 Unit Cap] Citalopram Hydrobromide [Celexa] 20 mg PO DAILY 09/02/18 09/02/18 Duloxetine HCl [Cymbalta] 30 mg PO DAILY 09/02/18 09/02/18 Previous Rx's Medication Instructions Recorded Diclofenac Sodium [Diclofenac 75mg 75 mg PO B
--- NOTE | 2018-09-02 18:03 | CT_ITS ---
CT abdomen pelvis wo con INDICATION: Lower started this morning. Urinary frequency. Nausea. Abdominal pain. Concern regarding IUD placement. .: left adnexal pain, no US tech ORDERING PHYSICIAN: Kadeem Douglas MD PATIENT AGE: 18 years COMPARISON: . CT abdomen pelvis 10/27/2016 & February 2015. L PROCEDURE: Oral Contrast: None IV Contrast: None TECHNIQUE: Axial images obtained with sagittal and coronal reformats. All CT scans at the facility use one or more dose reduction, viz: automated exposure control, ma/kV adjustment per patient size (including targeted exams where dose is matched to indication, i.e. head), or iterative reconstruction technique. FINDINGS: Lung bases are clear with nothing acute. Heart normal size. Abdomen/pelvis. Lack of oral and IV contrast does somewhat decrease sensitivity. Prior studies are helpful. Liver, pancreas, unremarkable on this noncontrast study. Gallbladder partially contracted. No definitive calcified stones. Suspect some minimal debris and sludge in gallbladder on axial image 37. Common duct normal caliber.. Spleen unremarkable. Kidneys. tract.. No urinary tract calculi nor obstruction. Kidneys appear stable and satisfactory. Ureters unremarkable. No obstructive uropathy. PELVIS. Urinary bladder appears satisfactory.2 Uterus appears normal size but retroverted. IUD in place and appears to be in appropriate, satisfactory position centrally within the uterus. The ovaries appear to be low-lying and flank the uterus bilaterally. Left ovary: Normal size. 3.2 cm length likely contains numerous small follicles. . Right ovary is larger measuring 3.9 cm in length and contains numerous follicles throughout. Minimal free fluid the cul-de-sac most evident to the right cul-de-sac and to the right of the rectum. There is minimal free fluid along the posterior right and left aspect of the uterus,. It is most evident on the right. GI TRACT. Appendix is normal & well visualized. Large bowel.: Moderate stool is seen throughout the right & transverse colon. Minimal stool at left colon & rectosigmoid. No bowel dilatation or obstruction. Small bowel.: Logn-gi-[id number] fluid throughout small bowel. Slight increase fluid in small bowel but but no bowel dilatation. No wall thickening Scattered small moderate-sized nodes throughout the root of the mesentery.- These were seen on previous 2017 study but slightly more evident and generous today. May reflect mild mesenteric adenitis: One of the larger nodes measures up to 16.5 x 10 mm. Towards RLQ axial slice 67 Several other generous mesentery nodes measure 10 mm x 13.5 mm length:. For example a node at left upper abdomen, image 28,. Or on On axial image 64 towards the right lower abdomen.... . No significant adenopathy along the pelvic sidewall. .. No significant retroperitoneal adenopathy. Small moderate nodes Inguinal regions bilaterally . Osseous structures. No significant findings. No lesions.. Vertebral bodies intact. Hips intact. IMPRESSION......... 1.. Slight increased number & size size of mesenteric lymph nodes compared to 2017 . May reflect a mild mesenteric adenitis. 2.... Free fluid at [id number]-extending towards right adnexa more so than left, & also extends along margins of retroverted uterus Free pelvic fluid, slightly more than typically seen for merely physiologic fluid--thus could reflect a recent cyst rupture. Both ovaries contain numerous follicles throughout but no large dominant ovarian cyst identified Larger Right ovary measures up to nearly 4 cm length..Consider pelvic ultrasound if pelvic symptoms should progress 3.... IUD satisfactory position. Retroverted uterus upper normal in size. 3. Appendix normal.. No Brayan
--- NOTE | 2018-09-02 18:03 | ED_ITS ---
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 Off work two days Prescriptions: Diclofenac Sodium [Diclofenac 75mg Tab] 75 mg PO BID 10 Days #20 tab Referrals: Kadeem Guerrero MD [Primary Care Provider] - Time of Disposition: :22 - Critical Care Critical Care Time: No Attestation: On 09/02/18, the high probability of a clinically significant, sudden or life threatening deterioration of the following system(s) required my full and direct attention, intervention and personal management. The time I documented below is in addition to time spent performing reported procedures but includes the following listed in this critical care notation. Medical Decision Making - Medical Records Medical records reviewed: Yes: I reviewed the patient's medical records. - Pal Inquiry Pt receiving controlled substance: No Pal was queried for this patient: No Vital Signs: 09/02/18 16:56 Temperature 97.9 F Temperature Source Oral Pulse Rate [Left Radial] 73 Respiratory Rate 16 Blood Pressure [Right Arm] 128/86 Blood Pressure Mean [Right Arm] 100 Blood Pressure Source [Right Arm] Automatic Cuff Blood Pressure Position [Right Arm] Sitting 02 Sat by Pulse Oximetry 98 Oxygen Delivery Method Room Air - Lab Data Lab results reviewed: Yes: I reviewed the patient's lab results. Lab Results 09/02/18 16:50: Urine Color Yellow, Urine Appearance Clear, Urine pH 7.5, Ur Specific [place] 1.020, Urine Protein Negative, Urine Glucose (UA) Negative, Urine Ketones Negative, Urine Blood Negative, Urine Nitrate Negative, Urine Bilirubin Negative, Urine Urobilinogen 0.2, Ur Leukocyte Esterase Negative, Urine WBC 3-5, Ur Squamous Epith Cells 3-5, Urine Bacteria 2+ 09/02/18 16:50: Urine HCG, Qual Negative 09/02/18 17:05: WBC 12.4, RBC 5.49 H, Hgb 13.5, Hct 43.8, MCV 79.8 L, MCH 24.6 L , MCHC 30.9 L, RDW 13.8, Plt Count 454 H, MPV 6.6 L, Neut % (Auto) 71.2, Lymph % (Auto) 19.2, [place] % (Auto) 7.2, Eos % (Auto) 2.0, Baso % (Auto) 0.5, Neut # (Auto) 8.8 H, Lymph # (Auto) 2.4, [place] # (Auto) 0.9, Eos # (Auto) 0.3, Baso # (Auto) 0.1 09/02/18 17:05: Sodium 139, Potassium 3.7, Chloride 102, Carbon Dioxide 27, Anion Gap 13.7, BUN 9, Creatinine 0.73, Estimated Creat Clear 153, Estimated GFR 102, Est GFR ( Amer) 123, Glucose 99, Calcium 9.0, Total Bilirubin 0.4, AST 13 L, ALT 26, Alkaline Phosphatase 109, Total Protein 7.6, Albumin 3.6, Globulin 4.0 H, Albumin/Globulin Ratio 0.9 L Result diagrams: 09/02/18 17:05 09/02/18 17:05 Orders (Tests/Meds): ED MEDICATIONS Discontinued Medications Generic Name Dose Route Start Last Admin Trade Name Freq PRN Reason Stop Dose Admin Ketorolac Tromethamine 30 mg 09/02/18 18:04 09/02/18 18:08 Toradol 30mg/Ml Vial IV 09/02/18 18:05 30 mg ONCE ONE Administration ORDERS Category Date Time Status Urine Culture Stat Micro 09/02/18 16:50 Received Abdominal Pain HPI - General Chief Complaint: Abdominal Pain
--- NOTE | 2018-09-02 19:12 | PC.NURSE ---
family at bedside
[2018-09-02 20:43] VITALS: BP 118/76; PULSE 78; RESP 18; TEMP 36.6; O2SAT 98
== END 2018-09-02 20:44 | disposition home or self-care (01) ==
PROVIDERS: Emergency Provider Emergency Medicine; PCP Emergency Medicine
DX: N83.209 Unspecified ovarian cyst, unspecified side (principal); R10.2 Pelvic and perineal pain; F32.9 Major depressive disorder, single episode, unspecified; F17.210 Nicotine dependence, cigarettes, uncomplicated; J45.909 Unspecified asthma, uncomplicated
CPT/HCPCS: 74176; 80053; 81001; 81025; 85025; 87086; 96374; 99283

== ENCOUNTER → 2019-02-12 13:26 | Outpatient (CLI) | payer OTHER, SELFPAY ==
--- NOTE | 2019-02-12 13:28 | MR_ITS ---
PROCEDURE: MR ANKLE RT WO CON CLINICAL INDICATION: Right ankle sprain Unable to bear weight on the right ankle, peroneal tendinopathy, ATFL sprain/tear common deltoid ligament sprain lateral foot and ankle pain, stress fracture COMPARISON: XR FOOT RT MIN 3V from 01/03/2019 TECHNIQUE: Routine multiplanar multi echo sequences are performed without gadolinium enhancement. FINDINGS: Bone marrow edema is present in the neck of the talus and at the distal aspect of the talus. No other area of bone marrow edema apparent. The base of the 5th metatarsal has an unremarkable appearance. There appears to be a partial tear of the anterior tibial fibular ligament inferiorly. The posterior tibial fibular ligament appears intact. The ATFL and PT FL ligaments appear intact. Unremarkable appearing deltoid ligament. The ankle mortise is intact. The talar dome has an unremarkable appearance. Increased T2 signal is present at the distal aspect of the peroneal brevis tendon at its insertion at the head of the 5th metatarsal consistent with partial tear versus tendon strain or tendinitis. This is best demonstrated on the axial images. No obvious fracture at this area. There is a small amount fluid in the ankle joint and there is a small amount of fluid along the anterior aspect of the tibiofibular region. The posterior tibialis, flexor hallucis longus, flexor digitorum longus, Achilles tendon, and anterior extensor tendons have an unremarkable appearance. IMPRESSION: 1. Suspect at least a partial tear of the anterior tibiofibular ligament 2. Increased T2 signal of the distal aspect of the peroneal brevis tendon which may be due to partial tear/tendinitis/sprain 3. Bone marrow edema of the neck of the talus and distal aspect of the talus suggesting bone bruise Dictated by: Piter Morrow MD 02/16/2019 10:17 Electronically signed by Piter Morrow MD in [place] 02/16/2019 10:17
== END ==
PROVIDERS: PCP Emergency Medicine; Visit Provider Podiatrist
DX: S93.421A Sprain of deltoid ligament of right ankle, initial encounter (principal)
CPT/HCPCS: 73721

== ENCOUNTER → 2019-02-18 14:52 | Outpatient (CLI) | payer OTHER, SELFPAY ==
--- NOTE | 2019-02-18 15:02 | XR_ITS ---
PROCEDURE: XR CHEST 2V CLINICAL HISTORY: HX TOBACCO USE, PRE OP From 03/02/2017. COMPARISON: CXR CHEST(2 VIEWS-NOT PORTABLE) from 02/23/2016 CXR CHEST(2 VIEWS-NOT PORTABLE) from 03/02/2017 FINDINGS: The cardiomediastinal silhouette and pulmonary vascularity are within normal limits. The lungs are clear acute infiltrates, or pleural effusions. There is evidence of healed granulomatous disease with calcified nodes in the left suprahilar region. An 11 millimeter nodular opacity projecting over the left upper lobe is likely a calcified granuloma. It is not significantly changed compared to the previous exam. No acute bony abnormalities. IMPRESSION: No acute findings. No significant change Dictated by: Osbaldo Mccullough 02/18/2019 15:50 Electronically signed by Osbaldo Mccullough in [place] 02/18/2019 15:50
--- NOTE | 2019-02-18 16:02 | ECG_ITS ---
APPROVED REPORT Exam: Resting ECG HR:64 bpm ECG Measurements Heart Rate 64 AXES MN 132 P 45 QRSd 84 QRS 80 QT 408 T 41 QTc 420 <Conclusion> Normal sinus rhythm Possible Left atrial enlargement Borderline ECG Electronically signed by : Howard Amaro, 02/19/2019 17:40:37
[2019-02-18 16:36] LABS: Basophils # 0.1 K/mm3 (0-0.2); Basophils % 0.4 % (0.1-2.0); Eosinophils # 0.2 K/mm3 (0.0-0.4); Eosinophils % 1.6 % (0.1-12.0); Hematocrit 42.5 % (37.0-47.0); Hemoglobin 13.7 g/dL (12.2-16.2); Lymphocytes # 2.8 K/mm3 (0.7-4.5); Lymphocytes % 24.3 % (10-50); Mean Corpuscular HGB Conc 32.3 g/dL (31.8-35.4); Mean Corpuscular Hemoglobin 27.7 pg (27.0-31.2); Mean Corpuscular Volume 85.8 fl (81-99); Mean Platelet Volume 7.2 fl (7.4-10.4); Monocytes # 0.6 K/mm3 (0.1-1.0); Monocytes % 4.9 % (1.7-9.3); Neutrophils # 7.9 K/mm3 (1.8-7.8); Neutrophils % 68.9 % (37.0-80.0); Platelet Count 448 K/mm3 (142-424); Red Blood Count 4.95 M/mm3 (4.20-5.40); Red Cell Distribution Width 13.4 % (11.5-17.5); White Blood Count 11.4 K/mm3 (4.5-13.0)
[2019-02-19 10:18] LABS: HCG Qualitative, Serum Negative (Negative)
[2019-02-19 10:26] LABS: Alanine Aminotransferase 19 U/L (12-78); Albumin Level 3.7 gm/dL (3.4-5.0); Albumin/Globulin Ratio 1.1 (1.1-1.8); Alkaline Phosphatase 101 U/L (46-116); Anion Gap 16.7 mEq/L (5-15); Aspartate Amino Transferase 9 U/L (15-37); Bilirubin,Total 0.3 mg/dL (0.2-1.0); Blood Urea Nitrogen 10 mg/dL (7-18); Calcium 8.8 mg/dL (8.5-10.1); Carbon Dioxide 25 mmol/L (21.0-32.0); Chloride 103 mmol/L (98-107); Creatinine,Serum 0.58 mg/dL (0.55-1.02); Estimated Glomerular Filt Rate 133 ml/min (>60); GFR (African American) 160 ML/MIN (>60); Globulin 3.5 gm/dl (1.3-3.2); Glucose 72 mg/dL (74-106); Potassium 3.7 mmoL/L (3.5-5.1); Sodium 141 mmol/L (136-145); Total Protein,Serum 7.2 gm/dL (6.4-8.2)
[2019-02-20 15:30] LABS: Vitamin D 25 Hydroxy 15.9 ng/mL (30.0-100.0)
[2019-02-28 21:56] LABS: Cotinine 1.6; Nicotine NEGATIVE
== END ==
PROVIDERS: PCP Emergency Medicine; Visit Provider Podiatrist
DX: Z01.818 Encounter for other preprocedural examination (principal); M25.571 Pain in right ankle and joints of right foot
CPT/HCPCS: 36415; 71046; 80053; 80323; 82652; 84702; 84703; 85025; 93005

== ENCOUNTER → 2019-03-20 16:38 | Outpatient (CLI) | payer OTHER, SELFPAY | PROVIDERS: PCP Emergency Medicine; Visit Provider Nurse Practitioner Family | DX: G47.33 Obstructive sleep apnea (adult) (pediatric) (principal); G47.30 Sleep apnea, unspecified; G47.00 Insomnia, unspecified; R06.83 Snoring; R06.81 Apnea, not elsewhere classified; G47.19 Other hypersomnia | CPT/HCPCS: 95806 ==

== ENCOUNTER → 2019-04-02 14:34 | Outpatient (CLI) | payer OTHER, SELFPAY ==
--- NOTE | 2019-04-02 14:37 | XR_ITS ---
PROCEDURE: XR ANKLE WT BEARING RT MIN 3V CLINICAL INDICATION: postop surgery COMPARISON: ANKR3 ANKLE-RT-3 VIEWS from 08/07/2016 ANKR3 ANKLE-RT-3 VIEWS from 09/15/2016 XR ANKLE RT MIN 3V from 01/03/2019 FINDINGS: Images were obtained through a fiberglass cast which obscures fine bone detail. Postsurgical change is noted with a metallic fixation plate and reduction screws in the in the distal fibula. Metallic density is also seen over the superior aspect of the medial tibia proximal to medial malleolus. There is anatomical positioning. IMPRESSION: Anatomical positioning of bony elements. No acute findings. Dictated by: Osbaldo Mccullough 04/02/2019 15:05 Electronically signed by Osbaldo Mccullough in [place] 04/02/2019 15:05
== END ==
PROVIDERS: PCP Emergency Medicine; Visit Provider Podiatrist
DX: Z98.890 Other specified postprocedural states (principal); M25.571 Pain in right ankle and joints of right foot
CPT/HCPCS: 73610

== ENCOUNTER 2019-05-29 11:00 | Outpatient (RCR) | payer OTHER, SELFPAY ==
--- NOTE | 2019-05-15 12:22 | HMH.PTOPEV ---
PT Outpatient Evaluation Rehab PT Outpatient Evaluation Start: 05/15/19 11:04 Freq: Status: Active Protocol: Document 05/15/19 12:04 NILAMCOURTNEY (Rec: 05/15/19 12:22 RUDOLPH [id number]) Electronically Signed By Demario Horne, PT 05/15/19 12:04 Outpatient Therapy Subjective History Subjective History Patient is a 19 year old female presenting to outpatient PT with reports of R post-surgical ankle pain S/P R ankle ORIF 02/21/19. Initial injury occurred . Pt report that she was walking across a parking lot and experienced an inversion ankle injury. Surgical fixation included R peroneus brevis/longus tendon repair, ATFL repair, deltoid ligament repair and syndesmosis repair. Pt reports that she has progressed WBAT for the past 2 -3 weeks in boot. Comorbidities include fibromyalgia, asthma, depression/anxiety. Chief Complaint Pain,Spasms,Stiff,Swelling Symptom Type Ache,Sharp Symptoms Relieved By Rest/Positioning,Prescription Meds Symptoms Aggravated By Standing,Physical Activity, Walking Prior Functional Limitations None Current Functional Limitations Housework,Driving,Standing, Squatting,Recreation Activity, Walking,Stairs,Balance,Bending /Stooping Symptom Description Constant but Variable Level of pain today (0-10) 3 Pain scale - at its best (0-10) 1 Pain scale - at its worst (0-10) 9 Ankle/Foot Eval Gait Observation General Gait Pattern Observation Antalgic Gait,Decrease Weight Bear (R) Palpation Tenderness right Ankle/Foot Palpation Findings Tenderness Ankle/Foot Palpation Overall Comment 3/4 ATF TTP positive Deltoid ligament TTP positive ROM Ankle/Foot Dorsiflexion w/Knee Extended -12 Active Range Motion (degrees) Ankle/Foot Dorsiflexion w/Knee Extended -8 Passive Range (degrees) Ankle/Foot Plantar Flexion Active Range 60 of Motion (degrees) Ankle/Foot Plantar Flexion Passive Range WNL of Motion (degrees) Ankle/Foot Eversion Active Range of 5 Motion (degrees) Ankle/Fo
== END 2019-05-29 11:05 | disposition home or self-care (01) ==
LOC: PT 11:00
PROVIDERS: PCP Emergency Medicine; Visit Provider Podiatrist
DX: M25.571 Pain in right ankle and joints of right foot (principal); Z98.890 Other specified postprocedural states
CPT/HCPCS: 97010; 97014; 97110; 97140; 97163; G0283

== ENCOUNTER → 2019-06-03 20:08 | Outpatient (CLI) | payer OTHER, SELFPAY | PROVIDERS: Visit Provider Nurse Practitioner Family | DX: G47.30 Sleep apnea, unspecified (principal); R06.83 Snoring; R40.0 Somnolence | CPT/HCPCS: 95810 ==

== ENCOUNTER → 2019-07-23 12:58 | Outpatient (CLI) | payer OTHER, SELFPAY ==
--- NOTE | 2019-07-23 13:10 | XR_ITS ---
PROCEDURE: XR CHEST 2V CLINICAL HISTORY: ASTHMA Shortness of air, chest pain COMPARISON: CXR CHEST(2 VIEWS-NOT PORTABLE) from 02/23/2016 CXR CHEST(2 VIEWS-NOT PORTABLE) from 03/02/2017 XR CHEST 2V from 02/18/2019 FINDINGS: The cardiomediastinal silhouette and pulmonary vascularity are within normal limits. There is a calcified granuloma in the left upper lobe and calcified nodes are present in the left hilum. The remaining lungs are clear. A thin curvilinear density overlies the neck and may be something upon the patient. Please correlate with physical exam No acute bony abnormalities. IMPRESSION: No change with no acute finding. Dictated by: Piter Morrow MD 07/23/2019 13:47 Electronically signed by Piter Morrow MD in [place] 07/23/2019 13:47
== END ==
PROVIDERS: PCP Emergency Medicine; Visit Provider Nurse Practitioner Family
DX: J45.909 Unspecified asthma, uncomplicated (principal)
CPT/HCPCS: 71046

== ENCOUNTER → 2019-08-16 16:44 | Outpatient (CLI) | payer OTHER, SELFPAY ==
--- NOTE | 2019-08-16 16:55 | XR_ITS ---
PROCEDURE: XR ANKLE WT BEARING RT MIN 3V CLINICAL INDICATION: pain, rolled ankle Posttraumatic pain, recent surgery COMPARISON: ANKR3 ANKLE-RT-3 VIEWS from 09/15/2016 XR ANKLE RT MIN 3V from 01/03/2019 XR ANKLE RT MIN 3V from 02/21/2019 XR ANKLE WT BEARING RT MIN 3V from 04/02/2019 FINDINGS: No change status post syndesmotic repair with lateral bone plate of the distal fibula and metallic button of the medial tibia with translucent fixator. There remains good alignment. The ankle mortise is preserved. No acute fracture or dislocation. The talar dome has an unremarkable appearance IMPRESSION: Good alignment status post ORIF/syndesmosis repair, no acute finding Dictated by: Piter Morrow MD 08/16/2019 17:12 Electronically signed by Piter Morrow MD in [place] 08/16/2019 17:12
== END ==
PROVIDERS: PCP Emergency Medicine; Visit Provider Podiatrist
DX: M25.571 Pain in right ankle and joints of right foot (principal)
CPT/HCPCS: 73610

== ENCOUNTER 2019-08-21 11:48 | Emergency (ER) | payer OTHER, SELFPAY ==
[2019-08-21 11:57] VITALS: BP 121/67; PULSE 86; RESP 16; TEMP 36.4; O2SAT 98; BMI 32.9
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
--- NOTE | 2019-08-21 12:03 | PC.NURSE ---
luis carlos notified of xray orders, spoke with josé miguel
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
[2019-08-21 13:14] VITALS: BP 112/68; PULSE 78; RESP 16; TEMP 36.6; O2SAT 98
== END 2019-08-21 13:16 | disposition home or self-care (01) ==
PROVIDERS: Emergency Provider Emergency Medicine; PCP Emergency Medicine
DX: S63.501A Unspecified sprain of right wrist, initial encounter (principal); W22.03XA Walked into furniture, initial encounter; Y92.019 Unspecified place in single-family (private) house as the place of occurrence of the external cause; M79.7 Fibromyalgia; Z87.891 Personal history of nicotine dependence; F41.8 Other specified anxiety disorders; Z79.899 Other long term (current) drug therapy
CPT/HCPCS: 29125; 73110; 73130; 99283

== ENCOUNTER → 2019-08-31 11:06 | Outpatient (CLI) | payer OTHER, SELFPAY ==
[2019-08-31 11:43] LABS: Basophils # 0.1 K/mm3 (0-0.2); Basophils % 0.5 % (0.1-2.0); Eosinophils # 0.2 K/mm3 (0.0-0.4); Eosinophils % 2.2 % (0.1-12.0); Hematocrit 43.3 % (37.0-47.0); Hemoglobin 14.4 g/dL (12.2-16.2); Lymphocytes # 2.3 K/mm3 (0.7-4.5); Lymphocytes % 20.4 % (10-50); Mean Corpuscular HGB Conc 33.3 g/dL (31.8-35.4); Mean Corpuscular Hemoglobin 28.4 pg (27.0-31.2); Mean Corpuscular Volume 85.4 fl (81-99); Mean Platelet Volume 7.1 fl (7.4-10.4); Monocytes # 0.5 K/mm3 (0.1-1.0); Monocytes % 4.4 % (1.7-9.3); Neutrophils # 8.2 K/mm3 (1.8-7.8); Neutrophils % 72.6 % (37.0-80.0); Platelet Count 441 K/mm3 (142-424); Red Blood Count 5.07 M/mm3 (4.20-5.40); Red Cell Distribution Width 13.5 % (11.5-17.5); White Blood Count 11.3 K/mm3 (4.8-10.8)
[2019-08-31 11:58] LABS: Hemoglobin A1C 5.8 % (4.0-6.0)
[2019-08-31 12:22] LABS: Alanine Aminotransferase 10 U/L (12-78); Albumin Level 4.5 g/dl (3.5-5.0); Albumin/Globulin Ratio 1.5 (1.1-1.8); Alkaline Phosphatase 106 U/L (38-126); Anion Gap 10.4 mEq/L (5-15); Aspartate Amino Transferase 19 U/L (14-36); Bilirubin,Total 0.4 mg/dl (0.2-1.3); Blood Urea Nitrogen 13 mg/dl (7-17); Calcium 9.7 mg/dl (8.4-10.2); Carbon Dioxide 30 mmol/L (22.0-30.0); Chloride 100 mmol/L (98-107); Chol/HDL Ratio 4.2 (1-3.5); Cholesterol 201 mg/dl (140-200); Estimated Glomerular Filt Rate 126 ml/min (>60); GFR (African American) 153 ML/MIN (>60); Glucose 98 mg/dl (74-100); HDL Cholesterol 48 mg/dl (40-60); Potassium 4.4 mmoL/L (3.5-5.1); Sodium 136 mmol/L (136-145); Total Protein,Serum 7.5 g/dl (6.3-8.2); Triglycerides 82 mg/dl (30-150); VLDL Cholesterol 16 mg/dL (0-40)
[2019-08-31 12:34] LABS: Direct LDL Cholesterol 138.22 mg/dL (100-129)
== END ==
PROVIDERS: Visit Provider Nurse Practitioner Psychiatric/Mental Health
DX: Z00.00 Encounter for general adult medical examination without abnormal findings (principal); Z79.899 Other long term (current) drug therapy
CPT/HCPCS: 36415; 80053; 80061; 83036; 85025

== ENCOUNTER → 2019-09-02 15:08 | Outpatient (CLI) | payer OTHER, SELFPAY ==
--- NOTE | 2019-09-02 15:12 | XR_ITS ---
PROCEDURE: XR FOOT WT BEARING RT 3V CLINICAL INDICATION: FOOT PAIN COMPARISON: FTL3 FOOT-LT-3 VIEWS from 12/21/2015 XR FOOT RT MIN 3V from 01/03/2019 XR ANKLE WT BEARING RT MIN 3V from 08/16/2019 FINDINGS: There is a plate and screws traversing the partially visualized distal fibular metaphysis. The extremity is casted. Soft tissues are edematous. There is no other bony abnormalities. IMPRESSION: No acute findings. Soft tissue edema Dictated by: Larry Soliz 09/02/2019 15:48 Electronically signed by Larry Soliz in [place] 09/02/2019 15:48
== END ==
PROVIDERS: PCP Emergency Medicine; Visit Provider Podiatrist
DX: Z98.890 Other specified postprocedural states (principal)
CPT/HCPCS: 73630

== ENCOUNTER 2019-10-06 06:46 | Emergency (ER) | payer OTHER, SELFPAY ==
[2019-10-06 06:55] VITALS: BP 128/85; PULSE 80; RESP 16; TEMP 37.1; O2SAT 99; BMI 32.9
--- NOTE | 2019-10-06 07:01 | CT_ITS ---
PROCEDURE: CT HEAD/BRAIN WO CON CLINICAL INDICATION: fall COMPARISON: HDWO CT HEAD WITHOUT CONTRAST from 05/10/2009 TECHNIQUE: Axial images obtained. All CT scans at the facility use one or more dose reduction, viz: automated exposure control, ma/kV adjustment per patient size (including targeted exams where dose is matched to indication, i.e. head), or iterative reconstruction technique. FINDINGS: No midline shift, mass effect, intracranial hemorrhage, hydrocephalus, or extra-axial fluid collection is evident. The calvarium has an unremarkable appearance. No mastoid effusion. No sinus air-fluid level. IMPRESSION: No acute intracranial finding Dictated by: Dr. Vern Tenorio MD 10/06/2019 07:[address] Vern Tenorio MD in [place] 10/06/2019 07:55
--- NOTE | 2019-10-06 07:01 | CT_ITS ---
PROCEDURE: CT CERVICAL SPINE WO CON CLINICAL INDICATION: fall COMPARISON: No exams were available for comparison TECHNIQUE: Axial images obtained with sagittal and coronal reformats. All CT scans at the facility use one or more dose reduction, viz: automated exposure control, ma/kV adjustment per patient size (including targeted exams where dose is matched to indication, i.e. head), or iterative reconstruction technique. Axial spiral CT scanning performed of the cervical spine beginning at the base of the skull and continuing to the upper T-spine. 3-D multiplanar reconstruction with 3-D manipulation of volumetric data set in image rendering was completed by the radiologist and/or technologist with the supervision of the radiologist on independent workstation. FINDINGS: No fracture nor subluxation is evident. Normal prevertebral soft tissues. Facets, neural foramen and vertebral bodies intact and unremarkable. Normal C1/C2 relationships. Apices of lungs are clear with no acute findings. IMPRESSION: Cervical spine intact with no fracture nor subluxation. Dictated by: Dr. Vern Tenorio MD 10/06/2019 07:[address] Vern Tenorio MD in [place] 10/06/2019 07:56
--- NOTE | 2019-10-06 07:01 | XR_ITS ---
PROCEDURE: XR PELVIS 1-2V CLINICAL INDICATION: fall COMPARISON: HIPCMLT XR hip LT 2-3V w/pelvis from 06/30/2018 TECHNIQUE: XR Pelvis AP View FINDINGS: No fracture or dislocation is evident. No significant degenerative change. The soft tissues appear normal. No lytic or blastic change. IMPRESSION: No acute findings. Dictated by: Dr. Vern Tenorio MD 10/06/2019 07:[address] Vern Tenorio MD in [place] 10/06/2019 07:58
--- NOTE | 2019-10-06 07:01 | XR_ITS ---
PROCEDURE: XR CHEST AP CLINICAL HISTORY: fall COMPARISON: CXR CHEST(2 VIEWS-NOT PORTABLE) from 03/02/2017 XR CHEST 2V from 02/18/2019 XR CHEST 2V from 07/23/2019 FINDINGS: The cardiomediastinal silhouette and pulmonary vascularity are within normal limits. The lungs are clear without infiltrates, suspicious nodules, or pleural effusions. There are calcified left hilar and left paratracheal nodes. No acute bony abnormalities. IMPRESSION: No acute findings. Dictated by: Dr. Vern Tenorio MD 10/06/2019 07:[address] Vern Tenorio MD in [place] 10/06/2019 07:57
[2019-10-06 07:06] LABS: Microscopic, Urine URINE MICROSCOPIC (MICROSCOPIC)
[2019-10-06 07:19] VITALS: BP 132/61; PULSE 51; RESP 20; O2SAT 95
[2019-10-06 07:19] LABS: Appearance,Urine CLEAR (Clear); Bilirubin,Urine Negative (Negative); Blood, Urine Negative (Negative); Color,Urine YELLOW (Yellow); Glucose,Urine (UA) Negative (Negative); Ketones,Urine Negative (Negative); Leukocyte Esterase,Urine Negative (Negative); Nitrate,Urine Negative (Negative); Protein,Urine Negative (Negative); Specific Gravity, Urine >= 1.030 (1.005-1.030); Urobilinogen,Urine 0.2 EU/dl (0.2)
[2019-10-06 07:22] LABS: Urine Pregnancy, HCG Qual. Negative (Negative)
[2019-10-06 07:23] LABS: Mucus,Urine 3+ /lpf
--- NOTE | 2019-10-06 07:30 | PC.NURSE ---
Pt to CT
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
--- NOTE | 2019-10-06 07:55 | PC.NURSE ---
pt gone to rad
--- NOTE | 2019-10-06 07:58 | PC.NURSE ---
pt back from rad
[2019-10-06 08:13] VITALS: BP 121/87; PULSE 96; O2SAT 97
[2019-10-06 08:39] VITALS: BP 139/77; PULSE 71; RESP 18; O2SAT 95
[2019-10-06 09:06] VITALS: BP 102/70; PULSE 73; RESP 18; O2SAT 97
[2019-10-06 09:15] VITALS: BP 115/74; PULSE 78; RESP 16; TEMP 36.6; O2SAT 98
== END 2019-10-06 09:17 | disposition home or self-care (01) ==
PROVIDERS: Emergency Provider Emergency Medicine; PCP Emergency Medicine
DX: S06.0X0A Concussion without loss of consciousness, initial encounter (principal); F10.10 Alcohol abuse, uncomplicated; W10.9XXA Fall (on) (from) unspecified stairs and steps, initial encounter; Y92.019 Unspecified place in single-family (private) house as the place of occurrence of the external cause; F41.8 Other specified anxiety disorders; J45.909 Unspecified asthma, uncomplicated; M79.7 Fibromyalgia; Z87.891 Personal history of nicotine dependence
CPT/HCPCS: 70450; 71045; 72125; 72170; 81001; 81025; 99283

== ENCOUNTER 2019-11-08 07:28 | Emergency (ER) | payer OTHER, SELFPAY ==
[2019-11-08 07:40] VITALS: BP 115/55; PULSE 65; RESP 18; TEMP 37.2; O2SAT 97; BMI 33.6
--- NOTE | 2019-11-08 07:44 | HMH.EDBACK ---
ED Disposition Clinical Impression: Strain of lumbar region, Sacroiliac joint dysfunction of right side Disposition: Home, Self-Care Condition on Discharge: Good Instructions: DI for Low Back Pain Prescriptions: methylPREDNISolone [Medrol 4mg tab] 4 mg PO DIRECTED #21 tab Transmission Status: Pending to [facility] Ketorolac Tromethamine [Toradol 10mg tablet] 10 mg PO Q6H 5 Days #20 tab Transmission Status: Pending to [facility] Tizanidine HCl [Zanaflex 4mg tablet] 4 mg PO TID 10 Days #30 tab Transmission Status: Pending to [facility] Referrals: Kadeem Guerrero MD [Primary Care Provider] - - Critical Care Critical Care Time: No Attestation: On 11/08/19, the high probability of a clinically significant, sudden or life threatening deterioration of the following system(s) required my full and direct attention, intervention and personal management. The time I documented below is in addition to time spent performing reported procedures but includes the following listed in this critical care notation. Medical Decision Making - Medical Records Medical records reviewed: Yes: I reviewed the patient's medical records. - Pal Inquiry Pt receiving controlled substance: No - Lab Data Lab results reviewed: Yes: I reviewed the patient's lab results. Back Pain HPI - General Chief Complaint: Back Pain/Injury Stated Complaint: lower back pain Time Seen by Provider: 11/08/19 07:44 - History of Present Illness HPI Narrative: 19-year-old female comes in with acute on chronic low back pain. Patient states that she has been seeing a chiropractor for the last 3 weeks try to get her hips aligned and today she woke up and she is in acute pain with pain radiating down her lower back. Patient states that this pain is a sharp sensation she rates her pain 6 out of 10 and she states alleviating factors include standing exacerbating factors include sitting and flexion at the waist. Patient also states that she finished a prednisone for 10 days she was taking 10 mg twice a day. Patient denies any recent fever shakes or chills. Patient denies any other symptoms. - Related Data Home Medications Medication Instructions Recorded Confirmed albuterol sulfate 90 mcg/actuation 1 puff INHALATION DAILY g 01/04/19 11/04/19 aerosol inhaler Pantoprazole Sodium [Pantoprazole 20 mg PO DAILY 10/06/19 11/04/19 20mg Tab] Previous Rx's Medication Instructions Recorded fluticasone furoate 100 1 each INHALATION DAILY #60 each 04/23/19 mcg-vilanterol 25 mcg/dose inhalation powder gabapentin 300 mg capsule 300 mg PO TID #90 cap 10/22/19 prednisone 20 mg tablet 20 mg PO BID 5 Days #10 tab 10/22/19 atomoxetine 25 mg capsule 25 mg PO DAILY #30 cap 10/23/19 buspirone 10 mg tablet 10 mg PO BID #60 tab 10/23/19 cariprazine 3 mg capsule 3 mg PO DAILY #30 cap 10/23/19 citalopram 20 mg tablet 20 mg PO DAILY #30 tab 10/23/19 doxepin 25 mg capsule 25 mg PO QHS PRN #30 cap 10/23/19 diclofenac sodium 1 % topical gel 4 g TOPICAL QID PRN #30 g 11/04/19 meloxicam 7.5 mg tablet 7.5 mg PO ONCE #30 tab 11/04/19 methylprednisolone 4 mg tablets in See Rx Instructions PO PER PKG DIR 11/04/19 a dose pack #21 tab Ketorolac Tromethamine [Toradol 10 mg PO Q6H 5 Days #20 tab 11/08/19 10mg tablet] Tizanidine HCl [Zanaflex 4mg 4 mg PO TID 10 Days #30 tab 11/08/19 tablet] methylPREDNISolone [Medrol 4mg 4 mg PO DIRECTED #21 tab 11/08/19 tab] Allergies Allergy/AdvReac Type Severity Reaction Status Date / Time No Known Allergies Allergy Verified 11/04/19 13:13 [facility] History - Hepatitis A Screen Attestation statement:: This patient has been screened for Hepatitis A risk factors. I have reviewed the patient's past medical history: Yes Medical History: Reports:: Anxiety, Asthma, Depression, MRSA, Urinary Tract Infection Denies:: Cancer, Diabetes Mellitus Type 1, Diabetes Mellitus Type 2
[2019-11-08 08:28] VITALS: BP 117/65; PULSE 67; RESP 18; TEMP 37.2; O2SAT 97
== END 2019-11-08 08:28 | disposition home or self-care (01) ==
PROVIDERS: Emergency Provider Family Medicine; PCP Emergency Medicine
DX: S39.012A Strain of muscle, fascia and tendon of lower back, initial encounter (principal); F41.8 Other specified anxiety disorders; M79.7 Fibromyalgia; E66.9 Obesity, unspecified; Z68.33 Body mass index [BMI] 33.0-33.9, adult; J45.909 Unspecified asthma, uncomplicated; Z87.891 Personal history of nicotine dependence; Z79.899 Other long term (current) drug therapy
CPT/HCPCS: 96372; 99281

== ENCOUNTER 2019-11-10 11:13 | Emergency (ER) | payer OTHER, SELFPAY ==
[2019-11-10 11:14] VITALS: BP 98/48; PULSE 58; RESP 16; TEMP 36.9; O2SAT 100; BMI 33.6
--- NOTE | 2019-11-10 12:01 | HMH.EDGENADL ---
ED Disposition Clinical Impression: Lumbar radiculopathy Low back pain with sciatica Qualifiers: Chronicity: acute Back pain laterality: left Sciatica laterality: sciatica of left side Qualified Code(s): M54.42 - Lumbago with sciatica, left side Disposition: Home, Self-Care Condition on Discharge: Good Instructions: DI for Back Pain With Sciatica, DI for Lumbar Radiculopathy Additional Instructions: See your primary care doctor tomorrow. Additional instructions for BACK PAIN: Return immediately if back pain becomes intolerable, or if fever, numbness or weakness of your legs, loss of control of your bowels or bladder. Additional instructions for CONTROLLED SUBSTANCES: You have been prescribed a medication that is a controlled substance. Controlled substances include pain medications known as opiates and sedative nerve medications known as benzodiazepines. Tramadol, fioricet, and gabapentin are also controlled substances. Some common opiates include: Codeine (such as Tylenol #3) Hydrocodone (Vicodin, Lortab, Lorcet, [place]) Oxycodone (Percocet, Percodan, Oxycodone, Oxy IR) Some common benzodiazepines include: Diazepam (Valium) Lorazepam (Ativan) Alprazolam (Xanax) Clonazepam (Klonopin) Oxazepam (Serax) All of these controlled substances are highly addictive and frequently abused. Misuse can and frequently does lead to addiction as well as overdose and . Medication should be stored in a locked cabinet or other secure storage unit. Do not store the medication in a motor vehicle. Short term supplies, 3 days or less, are prescribed because of the highly addictive nature of the medication. Any of the controlled substance medication NOT taken should be disposed of properly and NOT SAVED. The recommended method of disposing of unused medications is: Place the medicines in a sealable plastic bag. If the medicine is a solid, crush it or add water to dissolve it. Add something undesirable (cat litter, coffee grounds, etc.) Dispose of sealed bag in household trash Do not flush or pour unused medicines down a sink or drain. Controlled substances should not be shared, given away or sold. Because of the addictive nature and frequent abuse, these medications are sometimes stolen. These medications should be kept in a safe place where they cannot be stolen. Do not keep them in your car or purse. Lost or stolen prescriptions for controlled substances WILL NOT BE REFILLED in this emergency department, regardless of whether a police report was filed. Prescriptions: Hydrocod/Acet 5/325 mg [[place] 5/325mg tablet] 1 tab PO Q6HP PRN #6 tab PRN Reason: Pain Transmission Status: Received by [facility] Referrals: Kadeem Guerrero MD [Primary Care Provider] - - Critical Care Critical Care Time: No Attestation: On 11/10/19, the high probability of a clinically significant, sudden or life threatening deterioration of the following system(s) required my full and direct attention, intervention and personal management. The time I documented below is in addition to time spent performing reported procedures but includes the following listed in this critical care notation. Medical Decision Making - Medical Records Medical records reviewed: Yes: I reviewed the patient's medical records. - Pal Inquiry Pt receiving controlled substance: Yes Pal was queried for this patient: Yes Reference #:: [id number] Risks and benefits of using a controlled substance: were discussed with pt by me Comment: 11 rxs. most recent rxs for gabapentin. Vital Signs: 11/10/19 11:14 11/10/19 12:24 11/10/19 12:29 Temperature 98.5 F 98.5 F 97.8 F Temperature Source Oral Oral Oral Pulse Rate 58 L Pulse Rate [Right Brachial] 58 L 73 Respiratory Rate 16 16 16 Blood Pressure 98/48 L Blood Pressure [Right Arm] 98/48 L 104/56 L Blood Pressure Mean [Right Arm] 64 72 Blood Pressure Source Automatic Cuff Blood P
[2019-11-10 12:24] VITALS: BP 98/48; PULSE 58; RESP 16; TEMP 36.9; O2SAT 100
[2019-11-10 12:29] VITALS: BP 104/56; PULSE 73; RESP 16; TEMP 36.6; O2SAT 100
== END 2019-11-10 12:30 | disposition home or self-care (01) ==
PROVIDERS: Emergency Provider Emergency Medicine; PCP Emergency Medicine
DX: M54.16 Radiculopathy, lumbar region (principal); M54.42 Lumbago with sciatica, left side; F41.8 Other specified anxiety disorders; M79.7 Fibromyalgia; F17.210 Nicotine dependence, cigarettes, uncomplicated; Z79.899 Other long term (current) drug therapy
CPT/HCPCS: 99282

== ENCOUNTER 2019-11-22 15:50 | Outpatient (RCR) | payer OTHER, SELFPAY ==
--- NOTE | 2019-11-22 16:36 | HMH.PTOPEV ---
PT Outpatient Evaluation Rehab PT Outpatient Evaluation Start: 11/22/19 16:21 Freq: Status: Active Protocol: Document 11/22/19 16:21 RUDOLPH (Rec: 11/22/19 16:35 RUDOLPH [id number]) Electronically Signed By Demario Horne, PT 11/22/19 16:21 Outpatient Therapy Subjective History Subjective History Patient is a 19 year old female presenting to outpatient PT with reports of acute LBP with LLE radicular symptoms starting approximately 1 month ago of insidious onset. No recent imaging to report. Relief noted with lumbar extension and distraction. Comorbidities include hx of fibromyalgia, asthma and R ankle surgery. Chief Complaint Pain,Paresthesia Symptom Type Ache,Sharp Symptoms Relieved By Rest/Positioning,Ice,OTC Meds, Prescription Meds Symptoms Aggravated By Sitting,Standing,Bending/ Stooping,Physical Activity, Walking,Lifting Prior Functional Limitations None Current Functional Limitations Lifting,Housework,Standing, Sitting,Squatting,Recreation Activity,Walking,Stairs, Bending/Stooping Symptom Description Constant but Variable Level of pain today (0-10) 7 Pain scale - at its best (0-10) 4 Pain scale - at its worst (0-10) 10 Lumbopelvic Eval Posture Thoracic Spine Posture Standing Position Increased Kyphosis Lumbar Spine Posture Standing Position Neutral Assistive device Assistive Devices None / NA Palapation tenderness left buttock tenderness Yes: 2/4 tenderness over symphysis pubis Yes: Lumbar/Sacral Palpation Findings Tenderness,Spasm right paraspinal tenderness Yes: 4/4 buttock tenderness Yes: Lumbar/Sacral Palpation Findings Tenderness,Spasm Accessory Movement L2 bilateral L3 bilateral L4 bilateral L5 bilateral S1 bilateral Range of Motion Lumbar Spine Active Flexion Range of 75 Motion (degrees) Lumbar Spine Active Extension Range of 25 Motion (degrees) Left Lumbar Spine Lateral Flexion Active 30 Range of Motion (degrees) Right Lumbar Spine Lateral Flexion 24 Active Range of Motion (degrees) Lumbar Spine ROM Limitations
== END 2019-11-22 16:10 | disposition home or self-care (01) ==
LOC: PT 15:50
PROVIDERS: PCP Emergency Medicine; Visit Provider Nurse Practitioner Family
DX: M54.40 Lumbago with sciatica, unspecified side (principal)
CPT/HCPCS: 97163

== ENCOUNTER → 2019-11-26 11:06 | Outpatient (CLI) | payer OTHER, SELFPAY ==
--- NOTE | 2019-11-26 11:23 | MR_ITS ---
PROCEDURE: MR LUMBAR SPINE WO CON CLINICAL INDICATION: back pain PT. C/O LBP X 2 WEEKS WITH NO KNOWN INJURY. COMPARISON: MR MR ANKLE RT WO CON from 02/12/2019 TECHNIQUE: Standard multiplanar multiecho sequences are performed without contrast. 3-D MIP and myelographic images are also rendered and reviewed FINDINGS: There is normal alignment. The spinal cord ends at the T12 level. The disc spaces are well preserved. There is a small left paracentral disc protrusion at L5-S1 which abuts the anterior medial aspect of the left S1 nerve root. No extruded herniated disc or canal stenosis. The spinal cord is slightly prominent at the cauda equina region however, this is of questionable clinical significance. No abnormal signal intensity is evident at this area. IMPRESSION: Small left paracentral disc protrusion at L5-S1 otherwise negative MRI of the lumbar spine. Dictated by: Piter Morrow MD 11/27/2019 15:34 Piter Morrow MD in [place] 11/27/2019 15:34
== END ==
PROVIDERS: PCP Emergency Medicine; Visit Provider Nurse Practitioner Family
DX: M54.40 Lumbago with sciatica, unspecified side (principal)
CPT/HCPCS: 72148; 76376

== ENCOUNTER 2019-12-05 15:52 | Emergency (ER) | payer OTHER, SELFPAY ==
[2019-12-05 16:08] VITALS: BP 121/83; PULSE 101; RESP 21; TEMP 37.1; O2SAT 98; BMI 33.6
--- NOTE | 2019-12-05 16:15 | HMH.EDUTC ---
[facility] [place] Clinical Impression: Back pain Qualifiers: Back pain location: low back pain Chronicity: unspecified Back pain laterality: bilateral Sciatica presence: without sciatica Qualified Code(s): M54.5 - Low back pain Disposition: Home, Self-Care Condition on Discharge: Good Instructions: DI for Chronic Pain -- Adult, Low Back Pain, DI for Low Back Pain Additional Instructions: *Etodolac aust[place] 6 hours with meal as needed for pain/inflammation *Not additional anti-inflammatory like motrin, aleve, advil with the above amount of Etodolac. You can still take Tylenol every 4 hours as needed if you need something else for pain *Ice 20 minutes every 2 hours for the first 48 hours after the initial injury followed by moist heat every 20 minutes 3-4 times a day to affected area *Keep this area active, no movement leads to more stiffness, However take it easy and avoid heavy lifting pushing or pulling *Follow up with you family doctor if no improvement for further treatment Follow up with pain management for further treatment and evaluation Prescriptions: Etodolac [Etodolac 200mg Cap*] 200 mg PO Q8H PRN #9 cap PRN Reason: Moderate Pain Transmission Status: [facility] Referrals: Kadeem Guerrero MD [Primary Care Provider] - As needed Time of Disposition: 16:34 Medical Decision Making - Pal Inquiry Pt receiving controlled substance: No Pal was queried for this patient: No Vital Signs: 12/05/19 16:08 Temperature 98.8 F Temperature Source Oral Pulse Rate [Right Brachial] 101 H Respiratory Rate 21 Blood Pressure [Right Arm] 121/83 Blood Pressure Mean [Right Arm] 95 Blood Pressure Source [Right Arm] Automatic Cuff Blood Pressure Position [Right Arm] Sitting 02 Sat by Pulse Oximetry 98 Oxygen Delivery Method Room Air Medical Decision Narrative: Recommended Steriods and patient declined states that they made her back pain worse Patient reports that she is no longer taking the Meloxicam it didnt help with pain Patient educated that she needed to follow up with PCP for further evaluation and treatment [facility] [place] HPI - General Stated complaint: Back pain, right ear pain Time Seen by Provider: 12/05/19 16:15 Mode of Arrival: Ambulatory Source of Information: Patient Limitations: No Limitations Description of Symptoms (Recalled from Triage Doc. by RN): PATIENT C/O LOWER BACK PAIN X 4 WEEKS AND RIGHT EAR PAIN X 3 DAYS HEENT Symptoms (Recalled from RN notes): No Resp Symptoms (Recalled from RN notes): No Skin Symptoms (Recalled from RN notes): No MS Symptoms (Recalled from RN notes): No Functional Status (Recalled from RN notes): WNL - History of Present Illness Provider Complaint: Patient states that she has chronic back pain and has been trying to get in to pain management States that she was suppose to see her PCP today but she overslept and didnt make it States that she ran out of medication that helps with her back pain and she is having some waxy drainage from her right ear and hurts at times States that today she came to the [facility] to see if she could get some medication to help with her back pain and have her ear checked - Related Data Home Medications Medication Instructions Recorded Confirmed albuterol sulfate 90 mcg/actuation 1 puff INHALATION DAILY g 01/04/19 11/11/19 aerosol inhaler Atomoxetine HCl [Strattera] 40 mg PO DAILY 12/05/19 12/05/19 Cariprazine HCl [Vraylar] 4.5 mg PO DAILY 12/05/19 12/05/19 Citalopram Hydrobromide 20 mg PO DAILY 12/05/19 12/05/19 [Citalopram HBr] Gabapentin 300 mg PO TID 12/05/19 12/05/19 Previous Rx's Medication Instructions Recorded buspirone 10 mg tablet 10 mg PO BID #60 tab 11/15/19 Etodolac [Etodolac 200mg Cap*] 200 mg PO Q8H PRN #9 cap 12/05/19 Allergies Allergy/AdvReac Type Severity Reaction Status Date / Time No Known Allergies Allergy Verified 11/11/19 11:43 - Worker's Comp Is this a Worker's Comp case?: No H Histo
[2019-12-05 16:40] VITALS: BP 121/83; PULSE 101; RESP 21; TEMP 37.1; O2SAT 98
== END 2019-12-05 16:45 | disposition home or self-care (01) ==
PROVIDERS: Emergency Provider Nurse Practitioner; PCP Emergency Medicine
DX: M54.5 Low back pain (principal); F41.8 Other specified anxiety disorders; M79.7 Fibromyalgia; F17.210 Nicotine dependence, cigarettes, uncomplicated; Z79.899 Other long term (current) drug therapy
CPT/HCPCS: 99201

== ENCOUNTER → 2019-12-13 17:48 | Outpatient (CLI) | payer OTHER, SELFPAY ==
[2019-12-13 18:44] LABS: HCG,Quantitative < 2 mIU/ml (0-5.42)
== END ==
PROVIDERS: Visit Provider Nurse Practitioner Family
DX: Z34.90 Encounter for supervision of normal pregnancy, unspecified, unspecified trimester (principal)
CPT/HCPCS: 84702

== ENCOUNTER → 2019-12-19 08:26 | Outpatient (POV) | payer OTHER, SELFPAY ==
[2019-12-19 08:45] VITALS: BP 125/74; PULSE 84; RESP 18; O2SAT 98; BMI 34.0
--- NOTE | 2019-12-19 09:21 | HMH.PMCON ---
Assessment and Plan (1) Low back pain Status: Acute Category: Medical Code(s): M54.5 - Low back pain (2) Sacroiliitis Status: Acute Category: Medical Code(s): M46.1 - Sacroiliitis, not elsewhere classified - Assessment and plan all Dx Assessment and Plan for all problems:: We will schedule the patient for a left SI joint injection. We will see her back in the clinic after her injection to reassess her symptoms. We will also order her diclofenac 75 mg 1 tablet p.o. twice daily. Patient has been instructed to contact clinic if she has any concerns before next appointment. The patient and I specifically discussed risk factors for COVID19. These risks include, but are not limited to age greater than 60, heart or lung disease, diabetes, immunosuppression, and travel. We also discussed NSAIDs may worsen COVID19 infection or symptoms. Patient should not use NSAIDs to treat COVID19 signs or symptoms. Patient was also informed that any type of corticosteroid of any form (oral or injection) will decrease the patient's immune system response and may increase the likelihood of COVID19 infection and symptoms[address] Dr. Schofield has reviewed this note and agrees with this plan of care. This note was dictated using voice recognition software and make contain errors or omissions. HPI - Data of Consult Patient: new to practice Consult date: 12/19/19 Requesting Physician: Gladis Nails APRN Primary Care Provider: Kadeem Guerrero MD - Consult Narrative Reason for consult: Left low back pain, left buttock pain, left lateral leg pain History of present illness: Ms. Noriega is a 19 year old female resents today for consultation for low back pain. She has left low back pain with radiation into her left buttock, left hip, and left leg. She says the pain generally stops at the knee, however, will periodically go to her left foot. The pain is worse with standing and walking. The pain does improve with sitting. She says she had leftover Toradol that she did take that did give her some relief of the pain. She also says that she tried taking a muscle relaxer, unsure of the name, and that also gave her relief. She does rate her pain a 7 out of 10 today. She is currently in physical therapy and does use ice and heat therapies. CC: Gladis Nails APRN [facility] History I have reviewed the patient's past medical history: Yes Medical History: Reports:: Anxiety, Asthma, Depression, Urinary Tract Infection Denies:: Cancer, Diabetes Mellitus Type 1, Diabetes Mellitus Type 2, Hyperlipidemia, Hypertension, Internal Pacemaker, MRSA, Seizures *Have you ever received a pneumonia vaccine?: Yes *Have you received a flu vaccine this season?: Yes Other Medical History: Reports: Fibromyalgia, Other. Denies: Blood Transfusion Reaction Laterality Cases: Right: Other, Bilateral: Myringotomy (Ear Tubes), Tonsillectomy Other Surgeries: Yes: Colonoscopy, Other. No: , Pacemaker Amputation: No Fractures: No - *Social History Smoking Status: Never smoker Tobacco Type: cigarettes # Packs/Day (cigarettes): 1 Alcohol Intake: never Alcohol Intake Frequency:: holidays/special occasions only Substance Use Type: marijuana *Occupational Status:: other Housing: house Household Members: other *Travel in the last 8 weeks: None - Psychiatric History Pschychiatric History:: Reports:: Anxiety, Bipolar Disorder, Depression Family Hx:: Unable to obtain Review of Systems - Review of Systems Review of Systems General: No recent weight changes, no fever, no sleep disturbances Respiratory: No cough, no shortness of air, no recurring pulmonary infections Cardiovascular/peripheral vascular: No chest pain, no palpitations, no edema, no shortness of breath Gastrointestinal: No new onset incontinence, normal bowel movements reported Genitourinary: No new onset incontinence Musculoskeletal: Back pain, left buttock pain, left hip pain, left leg pain
== END ==
PROVIDERS: PCP Emergency Medicine; Visit Provider Clinical Nurse Specialist Family Health
DX: M54.5 Low back pain (principal); M46.1 Sacroiliitis, not elsewhere classified
CPT/HCPCS: 99202

== ENCOUNTER 2019-12-27 09:31 | Day surgery (SDC) | payer OTHER, SELFPAY ==
[2019-12-27 09:53] VITALS: BP 142/70; PULSE 91; RESP 18; TEMP 36.7; O2SAT 91; BMI 34.0
[2019-12-27 10:21] VITALS: BP 135/77; PULSE 85; RESP 18
[2019-12-27 10:22] VITALS: BP 140/74; PULSE 85; RESP 18
--- NOTE | 2019-12-27 10:26 | P.PCN_ITS ---
- Procedure Date: 12/27/19 Time: 10:26 Anesthesiologist:: Nitin Schofield MD Complications:: None Pre-procedure Diagnosis:: Sacroiliitis Post-procedure Diagnosis:: Same Indications for Procedure:: Patient is a pleasant 19-year-old white female who we are treating for left- sided hip pain. She is tender over her left SI joint. She has positive Arsen's test on left side. She has positive SI joint compression test on the left side. She has failed all other conservative treatment including NSAIDs and physical therapy. We will do a left SI joint injection under fluoroscopy today to help her with her pain symptoms. Procedure Details:: Left SI joint injection under fluoroscopy Informed consent was obtained and the risks and benefits of the procedure was explained to the patient. Patient was taken to the procedure room. Patient was placed prone on the procedure table. The left hip was prepped using ChloraPrep. The skin and subcutaneous tissues were anesthetized using lidocaine. I placed a 22-gauge spinal needle into the inferior aspect of the left SI joint. Needle placement was confirmed with dye. After this we injected 5 mL bupivacaine 0.25% and Depo-Medrol 40 mg into the left SI joint. The patient tolerated the procedure well with no complication. Plan and Disposition:: We will follow-up with her in 2 weeks. Will reevaluate symptoms at that time.
[2019-12-27 10:47] VITALS: BP 123/63; PULSE 91; RESP 18; O2SAT 97
== END 2019-12-27 10:48 | disposition home or self-care (01) ==
LOC: SC.PAINP 09:32
PROVIDERS: PCP Emergency Medicine; Visit Provider Anesthesiology
DX: M46.1 Sacroiliitis, not elsewhere classified (principal); F32.9 Major depressive disorder, single episode, unspecified; J45.909 Unspecified asthma, uncomplicated; K21.9 Gastro-esophageal reflux disease without esophagitis; F41.9 Anxiety disorder, unspecified; Z96.22 Myringotomy tube(s) status; Z90.89 Acquired absence of other organs; M54.16 Radiculopathy, lumbar region
CPT/HCPCS: 27096; G0260; J1040; Q9966

== ENCOUNTER → 2020-03-09 15:31 | Outpatient (CLI) | payer OTHER, SELFPAY ==
--- NOTE | 2020-03-09 15:36 | XR_ITS ---
PROCEDURE: XR ANKLE WT BEARING RT MIN 3V CLINICAL INDICATION: pain COMPARISON: CR XR ANKLE WT BEARING RT MIN 3V from 08/16/2019 FINDINGS: Again noted is the metallic button medial side of the distal tibia with the radiolucency transversely oriented through the tibia representing the fixator device for the syndesmotic repair. The metallic plate distal fibula is again noted fixated by 2 threaded screws. The soft tissues are normal. IMPRESSION: Status post syndesmotic repair right lower leg, no acute pathology noted Dictated by: Dr. Vern Tenorio MD 03/10/2020 11:14 Dr. Vern Tenorio MD in [place] 03/10/2020 11:14
== END ==
PROVIDERS: PCP Emergency Medicine; Visit Provider Podiatrist
DX: M25.571 Pain in right ankle and joints of right foot (principal)
CPT/HCPCS: 73610

== ENCOUNTER 2020-03-22 12:11 | Emergency (ER) | payer OTHER, SELFPAY ==
[2020-03-22 12:40] VITALS: BP 137/79; PULSE 99; RESP 18; TEMP 36.7; O2SAT 98; BMI 35.7
--- NOTE | 2020-03-22 13:30 | HMH.EDGENADL ---
ED Disposition Clinical Impression: Dog bite of hand Qualifiers: Encounter type: initial encounter Laterality: unspecified laterality Qualified Code(s): S61.459A - Open bite of unspecified hand, initial encounter Disposition: Home, Self-Care Condition on Discharge: Good Instructions: Animal Bites Additional Instructions: Doxycycline as prescribed. Additional instructions for WOUND CARE: Clean the wound daily and a bandage. See your physician in 3-5 days for a wound check. Return to the emergency room if increasing pain, swelling, redness, red streaks, pus drainage, or fever. Prescriptions: Doxycycline Monohydrate [Monodox] 100 mg PO BID #20 cap Transmission Status: Received by [facility] Referrals: Kadeem Guerrero MD [Primary Care Provider] - - Critical Care Critical Care Time: No Attestation: On 03/22/20, the high probability of a clinically significant, sudden or life threatening deterioration of the following system(s) required my full and direct attention, intervention and personal management. The time I documented below is in addition to time spent performing reported procedures but includes the following listed in this critical care notation. Medical Decision Making - Medical Records Medical records reviewed: Yes: I reviewed the patient's medical records. MR Comment: tetanus immun 02/20/18 - Pal Inquiry Pt receiving controlled substance: No Vital Signs: 03/22/20 12:40 03/22/20 14:12 Temperature 98.0 F 98.0 F Temperature Source Oral Pulse Rate 77 Pulse Rate [Right Radial] 99 H Respiratory Rate 18 16 Blood Pressure 135/72 Blood Pressure [Right Arm] 137/79 Blood Pressure Mean [Right Arm] 98 Blood Pressure Source [Right Arm] Automatic Cuff Blood Pressure Position [Right Arm] Sitting 02 Sat by Pulse Oximetry 98 Oxygen Delivery Method Room Air Room Air Orders (Tests/Meds): ED MEDICATIONS Discontinued Medications Generic Name Dose Route Start Last Admin Trade Name Freq PRN Reason Stop Dose Admin Doxycycline Hyclate 100 mg 03/22/20 13:44 03/22/20 14:02 Doxycycline Hycl 100 Mg Tablet PO 03/22/20 13:45 100 mg ONCE ONE Administration Protocol Neomycin/Polymyxin/Bacitracin 1 each 03/22/20 13:39 03/22/20 14:02 Neosporin Ointment 0.9gm Udp TP 03/22/20 13:40 1 each ONCE ONE Administration General Adult HPI - General Chief complaint: Animal Bite Stated complaint: cuts to both hands from dog bites Time Seen by Provider: 03/22/20 13:30 Mode of Arrival: Ambulatory Limitations: No Limitations Description of Symptoms (Recalled from ER Triage Doc. by RN): Pt has scattered small lacerations to aaron hands r/t dog bites. 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 - History of Present Illness HPI narrative: The patient got bit by one of her dogs today. The dog that bit her is a small dachshund mix that was attacked by one of her other dogs, I win. She says the pitbull tore the gets out of the dachshund mix, which bit her while she was trying to break up the fight. She did not get bit by the pitbull. The dachshund mix was up-to-date on its immunizations. - Related Data Home Medications Medication Instructions Recorded Confirmed albuterol sulfate 90 mcg/actuation 1 puff INHALATION DAILY g 01/04/19 03/10/20 aerosol inhaler Citalopram Hydrobromide [Celexa] 40 mg PO DAILY 12/27/19 03/10/20 Diclofenac Sodium [Diclofenac 75mg 75 mg PO BID 12/27/19 03/10/20 Tab] Previous Rx's Medication Instructions Recorded Etodolac [Etodolac 200mg Cap*] 200 mg PO Q8H PRN #9 cap 12/05/19 atomoxetine 40 mg capsule 40 mg PO DAILY #30 cap 12/16/19 buspirone 10 mg tablet 10 mg PO BID #60 tab 12/16/19 cariprazine 4.5 mg capsule 4.5 mg PO DAILY #30 cap 12/16/19 gabapentin 600 mg tablet 600 mg PO TID #90 tab 01/20/20 prednisone 20 mg tablet 20 mg PO BID 5 Days #10 tab 03/10/20 Doxycycline Monoh
--- NOTE | 2020-03-22 13:36 | PC.NURSE ---
Pt's ring cut off upon arrival.
[2020-03-22 14:12] VITALS: BP 135/72; PULSE 77; RESP 16; TEMP 36.7; O2SAT 98
== END 2020-03-22 14:12 | disposition home or self-care (01) ==
LOC: UTC 12:23 → ER 12:33
PROVIDERS: Emergency Provider Emergency Medicine; PCP Emergency Medicine
DX: S61.452A Open bite of left hand, initial encounter (principal); S61.451A Open bite of right hand, initial encounter; W54.0XXA Bitten by dog, initial encounter; Y92.017 Garden or yard in single-family (private) house as the place of occurrence of the external cause; F41.8 Other specified anxiety disorders; M79.7 Fibromyalgia; J45.909 Unspecified asthma, uncomplicated; Z79.899 Other long term (current) drug therapy
CPT/HCPCS: 99281

== ENCOUNTER → 2020-03-23 13:51 | Outpatient (CLI) | payer OTHER, SELFPAY ==
--- NOTE | 2020-03-23 13:55 | XR_ITS ---
PROCEDURE: XR HAND LT MIN 3V CLINICAL INDICATION: left thumb pain - dog bite joint space COMPARISON: CR HANDR3 HAND-RT 3 VIEWS from 02/22/2013 CR HANDL3 HAND-LT-3 VIEWS from 12/16/2016 CR [id number] XR hand RT 2V from 04/21/2017 CR XR HAND RT MIN 3V from 08/21/2019 FINDINGS: There is a faint lucency along the proximal aspect of the distal phalanx of the thumb consistent with a nondisplaced fracture. There may be intra-articular extension. No other significant anomalies are evident. IMPRESSION: Nondisplaced fracture proximal aspect of the distal phalanx of the thumb with suspected intra-articular involvement Dictated by: Piter Morrow MD 03/23/2020 14:21 Piter Morrow MD in [place] 03/23/2020 14:21
== END ==
PROVIDERS: PCP Emergency Medicine; Visit Provider Nurse Practitioner
DX: S61.452A Open bite of left hand, initial encounter (principal); W54.0XXA Bitten by dog, initial encounter
CPT/HCPCS: 73130

== ENCOUNTER 2020-08-02 22:08 | Emergency (ER) | payer OTHER, SELFPAY ==
[2020-08-02 22:14] VITALS: RESP 16; TEMP 36.9; O2SAT 100; BMI 37.0
--- NOTE | 2020-08-02 22:24 | HMH.EDDENT ---
ED Disposition Clinical Impression: Pain, dental, Abrasions of multiple sites Disposition: Home, Self-Care Condition on Discharge: Good Instructions: DI for Dental Pain Additional Instructions: use meds and call dentist for follow up Prescriptions: clindamycin HCL [Clindamycin HCl] 300 mg PO TID #21 cap Transmission Status: Pending to [facility] Referrals: Kadeem Guerrero MD [Primary Care Provider] - - Critical Care Critical Care Time: No Attestation: On , the high probability of a clinically significant, sudden or life threatening deterioration of the following system(s) required my full and direct attention, intervention and personal management. The time I documented below is in addition to time spent performing reported procedures but includes the following listed in this critical care notation. Medical Decision Making - Medical Records Medical records reviewed: Yes: I reviewed the patient's medical records. - Pal Inquiry Pt receiving controlled substance: No Vital Signs: 08/02/20 22:14 Temperature 98.5 F Temperature Source Oral Respiratory Rate 16 02 Sat by Pulse Oximetry 100 Oxygen Delivery Method Room Air Dental HPI - General Chief complaint: Dental/Oral Stated complaint: possible dry socket/dental pain Time Seen by Provider: 08/02/20 22:20 Mode of Arrival: Family Vehicle Source of Information: Patient, Medical Record Limitations: No Limitations Description of Symptoms (Recalled from ER Triage Doc. by RN): left upper jaw possible dry socket from tooth removal; reports pain going up into her [employer]ec[employer] - History of Present Illness HPI Narrative: recent dental work and now with pain Complaint: tooth pain Onset (ago): day(s) Severity: moderate Context: recent dentist visit- dry socket Treatment prior to arrival: none - Related Data Home Medications Medication Instructions Recorded Confirmed albuterol sulfate 90 mcg/actuation 1 puff INHALATION DAILY g 01/04/19 07/17/20 aerosol inhaler Previous Rx's Medication Instructions Recorded docosahexaenoic acid 200 mg capsule 200 mg PO DAILY #90 cap 05/07/20 buspirone 10 mg tablet 10 mg PO BID #60 tab 07/07/20 cariprazine 3 mg capsule 3 mg PO DAILY #30 cap 07/07/20 citalopram 40 mg tablet 40 mg PO DAILY #30 tab 07/07/20 hydroxyzine pamoate 25 mg capsule 25 mg PO TID PRN #90 cap 07/07/20 gabapentin 800 mg tablet 800 mg PO QID #120 tab 07/17/20 budesonide-formoterol HFA 80 2 puff INHALATION BID #10.2 g 07/20/20 mcg-4.5 mcg/actuation aerosol inhaler clindamycin HCL [Clindamycin HCl] 300 mg PO TID #21 cap 08/02/20 Allergies Allergy/AdvReac Type Severity Reaction Status Date / Time No Known Allergies Allergy Verified 07/17/20 15:53 [facility] History - Hepatitis A Screen Drug use history?: No High risk sexual behaviors?: No History of sexually transmitted infection?: No Currently employed?: No Childcare worker?: No Do you have indoor plumbing?: Yes Do you have electricity?: Yes Attestation statement:: This patient has been screened for Hepatitis A risk factors. I have reviewed the patient's past medical history: Yes Medical History: Reports:: Anxiety, Asthma, Depression, Urinary Tract Infection Denies:: Cancer, Diabetes Mellitus Type 1, Diabetes Mellitus Type 2, Hyperlipidemia, Hypertension, Internal Pacemaker, MRSA, Seizures Other Medical History: Reports: Fibromyalgia, Other. Denies: Blood Transfusion Reaction Comment: obesity, bipolar disease Laterality Cases: Right: Other, Bilateral: Myringotomy (Ear Tubes), Tonsillectomy Other Surgeries: Yes: Colonoscopy, Other. No: , Pacemaker Amputation: No Fractures: No Comment: wisdom teeth, right ankle/foot - Social History Smoking Status: Never smoker Tobacco Type: e-cigarettes # Packs/Day (cigarettes): 1 Alcohol Intake: current Alcohol Intake Frequency:: holidays/special occasions only Substance Use Type: marijuana Occupational Status:
[2020-08-02 22:32] VITALS: BP 122/78; PULSE 87; RESP 18; TEMP 36.8; O2SAT 98
== END 2020-08-02 22:43 | disposition home or self-care (01) ==
LOC: ER 22:37
PROVIDERS: Emergency Provider Emergency Medicine; PCP Emergency Medicine
DX: K08.89 Other specified disorders of teeth and supporting structures (principal); R68.84 Jaw pain; T07.XXXA Unspecified multiple injuries, initial encounter; F41.8 Other specified anxiety disorders; J45.909 Unspecified asthma, uncomplicated; M79.7 Fibromyalgia; F17.290 Nicotine dependence, other tobacco product, uncomplicated; Z79.899 Other long term (current) drug therapy
CPT/HCPCS: 99282

== ENCOUNTER → 2020-08-07 14:11 | Outpatient (CLI) | payer OTHER, SELFPAY ==
[2020-08-07 14:20] LABS: Basophils % 0.4 % (0.1-2.0); Eosinophils # 0.2 K/mm3 (0.0-0.4); Eosinophils % 2.3 % (0.1-12.0); Hematocrit 43.2 % (37.0-47.0); Hemoglobin 13.5 g/dL (12.2-16.2); Lymphocytes # 1.6 K/mm3 (0.7-4.5); Lymphocytes % 16.6 % (10-50); Mean Corpuscular HGB Conc 31.2 g/dL (31.8-35.4); Mean Corpuscular Hemoglobin 27.7 pg (27.0-31.2); Mean Corpuscular Volume 88.8 fl (81-99); Mean Platelet Volume 7.4 fl (7.4-10.4); Monocytes # 0.7 K/mm3 (0.1-1.0); Monocytes % 7.6 % (1.7-9.3); Neutrophils # 6.9 K/mm3 (1.8-7.8); Neutrophils % 73.2 % (37.0-80.0); Platelet Count 508 K/mm3 (142-424); Red Blood Count 4.86 M/mm3 (4.20-5.40); Red Cell Distribution Width 12.8 % (11.5-17.5); White Blood Count 9.4 K/mm3 (4.8-10.8)
[2020-08-07 16:54] LABS: Alanine Aminotransferase 28 U/L (12-78); Albumin Level 4.2 g/dl (3.5-5.0); Albumin/Globulin Ratio 1.4 (1.1-1.8); Alkaline Phosphatase 99 U/L (38-126); Anion Gap 13.3 mEq/L (5-15); Aspartate Amino Transferase 29 U/L (14-36); Bilirubin,Total 0.6 mg/dl (0.2-1.3); Blood Urea Nitrogen 10 mg/dl (7-17); Carbon Dioxide 25 mmol/L (22.0-30.0); Chloride 103 mmol/L (98-107); Chol/HDL Ratio 4.1 (1-3.5); Cholesterol 223 mg/dl (140-200); Estimated Glomerular Filt Rate 125 ml/min (>60); GFR (African American) 151 ML/MIN (>60); Globulin 3.1 g/dL (1.3-3.2); Glucose 101 mg/dl (74-100); HDL Cholesterol 55 mg/dl (40-60); Potassium 4.3 mmoL/L (3.5-5.1); Sodium 137 mmol/L (136-145); Total Protein,Serum 7.3 g/dl (6.3-8.2); Triglycerides 73 mg/dl (30-150); VLDL Cholesterol 15 mg/dL (0-40)
[2020-08-07 17:05] LABS: Direct LDL Cholesterol 144.62 mg/dL (100-129)
[2020-08-07 17:10] LABS: T4 (Thyroxine) 7.3 ug/dl (5.53-11.0)
[2020-08-07 17:24] LABS: Thyroid Stimulating Hormone 1.22 uIU/mL (0.465-4.68)
== END ==
PROVIDERS: Visit Provider Nurse Practitioner Family
DX: L08.9 Local infection of the skin and subcutaneous tissue, unspecified (principal); E55.9 Vitamin D deficiency, unspecified; E66.9 Obesity, unspecified; Z68.38 Body mass index [BMI] 38.0-38.9, adult
CPT/HCPCS: 80053; 80061; 82306; 84436; 84443; 85025; 87070; 87077; 87205

== ENCOUNTER 2020-08-08 11:59 | Emergency (ER) | payer OTHER, SELFPAY ==
[2020-08-08 12:00] VITALS: BP 137/86; PULSE 81; RESP 19; TEMP 37; O2SAT 98; BMI 39.1
--- NOTE | 2020-08-08 12:34 | HMH.EDUTC ---
[facility] [place] Clinical Impression: Abrasion Disposition: Home, Self-Care Condition on Discharge: Good Instructions: DI for Abrasion Additional Instructions: continue antibiotics- do not take night dose of keflex but restart keflex in am keep area clean and dry- apply cream follow up with pcp tues is area looks worse return or be seen in ed do not drink alcohol while on antibiotics Prescriptions: Mupirocin [Bactroban 2% Ointment 22gm tube] 1 applicatio TP BID 10 Days #1 tube Transmission Status: Received by [facility] Referrals: Kadeem Guerrero MD [Primary Care Provider] - Forms: Work/School Release Time of Disposition: 13:09 Medical Decision Making - Pal Inquiry Pt receiving controlled substance: No Vital Signs: 08/08/20 12:00 Temperature 98.6 F Temperature Source Oral Pulse Rate [Right Brachial] 81 Respiratory Rate 19 Blood Pressure [Right Arm] 137/86 Blood Pressure Mean [Right Arm] 103 Blood Pressure Source [Right Arm] Automatic Cuff Blood Pressure Position [Right Arm] Sitting 02 Sat by Pulse Oximetry 98 Oxygen Delivery Method Room Air [facility] [place] HPI - General Chief complaint: Urgent [facility] Stated complaint: Ao fell [id number] pain both knees Time Seen by Provider: 08/08/20 12:34 Mode of Arrival: Ambulatory Source of Information: Patient Limitations: No Limitations Description of Symptoms (Recalled from Triage Doc. by RN): PATIENT REPORTS SHE FELL A WEEK AGO, C/O INFECTED AND PAINFUL BILATERAL KNEES THAT IS CAUSING DIFFICULTY WALKING HEENT Symptoms (Recalled from RN notes): No Resp Symptoms (Recalled from RN notes): No Skin Symptoms (Recalled from RN notes): Yes MS Symptoms (Recalled from RN notes): No Functional Status (Recalled from RN notes): WNL - History of Present Illness Provider Complaint: 20 yr old female presents for pain and infection to aaron knees. pt states she fell last week and is on antibiotics, started new one yesterday but it seems to be worse today. pt stats she also drank alcolohol last pm but it did not affect her. - Related Data Home Medications Medication Instructions Recorded Confirmed albuterol sulfate 90 mcg/actuation 1 puff INHALATION DAILY g 01/04/19 08/07/20 aerosol inhaler acetaminophen 300 mg-codeine 30 mg 1 tab PO Q8H PRN 08/03/20 08/07/20 tablet ibuprofen 800 mg tablet 800 mg PO Q6H 08/03/20 08/07/20 Previous Rx's Medication Instructions Recorded buspirone 10 mg tablet 10 mg PO BID #60 tab 07/07/20 cariprazine 3 mg capsule 3 mg PO DAILY #30 cap 07/07/20 citalopram 40 mg tablet 40 mg PO DAILY #30 tab 07/07/20 hydroxyzine pamoate 25 mg capsule 25 mg PO TID PRN #90 cap 07/07/20 gabapentin 800 mg tablet 800 mg PO QID #120 tab 07/17/20 budesonide-formoterol HFA 80 2 puff INHALATION BID #10.2 g 07/20/20 mcg-4.5 mcg/actuation aerosol inhaler cephalexin 500 mg capsule 500 mg PO TID #21 cap 08/03/20 tramadol 50 mg tablet 50 mg PO TID #15 tab 08/03/20 sulfamethoxazole 800 1 tab PO BID 10 Days #20 tab 08/07/20 mg-trimethoprim 160 mg tablet Mupirocin [Bactroban 2% Ointment 1 applicatio TP BID 10 Days #1 tube 08/08/20 22gm tube] Allergies Allergy/AdvReac Type Severity Reaction Status Date / Time No Known Allergies Allergy Verified 08/07/20 10:13 - Worker's Comp Is this a Worker's Comp case?: No [facility] History - Hepatitis A Screen Drug use history?: No High risk sexual behaviors?: No History of sexually transmitted infection?: No Currently employed?: No Childcare worker?: No Do you have indoor plumbing?: Yes Do you have electricity?: Yes Attestation statement:: This patient has been screened for Hepatitis A risk factors. I have reviewed the patient's past medical history: Yes Medical History: Reports:: Anxiety, Asthma, Depression, Urinary Tract Infection Denies:: Cancer, Diabetes Mellitus Type 1, Diabetes Mellitus Type 2, Hyperlipidemia, Hypertension, Internal Pacemaker, MRSA, Seizures Other Med
[2020-08-08 13:27] VITALS: BP 137/86; PULSE 81; RESP 19; TEMP 37; O2SAT 98
== END 2020-08-08 13:37 | disposition home or self-care (01) ==
PROVIDERS: Emergency Provider Nurse Practitioner Family; PCP Emergency Medicine
DX: S80.212A Abrasion, left knee, initial encounter (principal); S80.211A Abrasion, right knee, initial encounter; W01.0XXA Fall on same level from slipping, tripping and stumbling without subsequent striking against object, initial encounter; Y92.019 Unspecified place in single-family (private) house as the place of occurrence of the external cause; M79.7 Fibromyalgia; J45.909 Unspecified asthma, uncomplicated; E66.9 Obesity, unspecified; Z68.39 Body mass index [BMI] 39.0-39.9, adult; Z79.899 Other long term (current) drug therapy
CPT/HCPCS: 96372; 99202; G0463

== ENCOUNTER → 2020-10-01 19:27 | Outpatient (CLI) | payer OTHER, SELFPAY ==
[2020-10-01 20:06] LABS: Chloride 101 mmol/L (98-107); Sodium 140 mmol/L (136-145)
[2020-10-01 20:07] LABS: Potassium 4.7 mmoL/L (3.5-5.1)
[2020-10-01 20:09] LABS: Alanine Aminotransferase 23 U/L (12-78); Albumin Level 4.9 g/dl (3.5-5.0); Albumin/Globulin Ratio 1.4 (1.1-1.8); Alkaline Phosphatase 117 U/L (38-126); Anion Gap 18.7 mEq/L (5-15); Aspartate Amino Transferase 31 U/L (14-36); Bilirubin,Total 0.9 mg/dl (0.2-1.3); Blood Urea Nitrogen 9 mg/dl (7-17); Carbon Dioxide 25 mmol/L (22.0-30.0); Estimated Glomerular Filt Rate 154 ml/min (>60); GFR (African American) 187 ML/MIN (>60); Globulin 3.6 g/dL (1.3-3.2); Total Protein,Serum 8.5 g/dl (6.3-8.2)
[2020-10-01 20:10] LABS: Calcium 9.4 mg/dl (8.4-10.2); Glucose 109 mg/dl (74-100)
== END ==
PROVIDERS: Visit Provider Nurse Practitioner Family
DX: N28.9 Disorder of kidney and ureter, unspecified (principal)
CPT/HCPCS: 80053

== ENCOUNTER 2020-10-13 13:38 | Emergency (ER) | payer OTHER, SELFPAY ==
[2020-10-13 13:39] VITALS: BP 113/76; PULSE 93; RESP 19; TEMP 37; O2SAT 100; BMI 37.5
--- NOTE | 2020-10-13 14:54 | HMH.EDUTC ---
[facility] [place] Disposition Clinical Impression: Encounter for laboratory testing for COVID-19 virus Disposition: Home, Self-Care Condition on Discharge: Good Instructions: DI for COVID-19 (Suspected or Confirmed ), Coronavirus Disease 2019, Preventing the Spread of Coronavirus Discharge Instructions Additional Instructions: *Monitor Temp, Over the counter Motrin or Tylenol as directed/as needed Tylenol every 4 hours and Motrin every 6 hours (as long as your family doctor has told you that you can take it) for fever or pain. and straight to ER if unable to lower temp less than 101.0 after medication given *Warm salt water gargles may help to soothe the throat *Throat Lozenges *Warm fluids like tea with honey may help to soothe the throat *Sleep elevated *Humidifier/Vaporizer Follow up IMMEDIATELY for new or worsening symptoms or no Noticeable improvement over the next 48-72 hours. 911 for difficulty breathing or swallowing You were tested for today for COVID19 your test result should be back in the next 24-48 hours, you may call to the [facility] to see if your test results are back in the next 48 hours [phone] [facility] hours are 9am-9pm You was given a handout with instructions for Self Quarantine and Self isolation for while you wait on test results and what to do if they are positive If you are positive the Health Dept will be contacting you also Prescriptions: Ondansetron [Zofran 4mg ODT] 4 mg PO TIDP PRN #6 tab PRN Reason: Nausea Transmission Status: Pending to [facility] Referrals: Kadeem Guerrero MD [Primary Care Provider] - As needed Time of Disposition: 14:56 Medical Decision Making - Pal Inquiry Pt receiving controlled substance: No Pal was queried for this patient: No Vital Signs: 10/13/20 13:39 Temperature 98.6 F Temperature Source Oral Pulse Rate [Apical] 93 H Respiratory Rate 19 Blood Pressure [Right Arm] 113/76 Blood Pressure Mean [Right Arm] 88 Blood Pressure Source [Right Arm] Automatic Cuff Blood Pressure Position [Right Arm] Supine 02 Sat by Pulse Oximetry 100 Oxygen Delivery Method Room Air Orders (Tests/Meds): ORDERS Category Date Time Status Covid-19 Nasal PCR ([facility]) Routine Lab 08/03/21 14:26 Received [facility] [place] HPI - General Stated complaint: covid test vomiting, hurts all over Time Seen by Provider: 10/13/20 14:54 Mode of Arrival: Ambulatory Source of Information: Patient Limitations: No Limitations Description of Symptoms (Recalled from Triage Doc. by RN): no sense of taste or smell, nausea HEENT Symptoms (Recalled from RN notes): Yes Resp Symptoms (Recalled from RN notes): Yes Skin Symptoms (Recalled from RN notes): No MS Symptoms (Recalled from RN notes): No Functional Status (Recalled from RN notes): na - History of Present Illness Provider Complaint: Patient states that she has been having body aches, chills, loss of taste and smell and nausea States that she was recently around someone whos family member tested positive for COVID and she is wanting to get tested - Related Data Home Medications Medication Instructions Recorded Confirmed albuterol sulfate 90 mcg/actuation 1 puff INHALATION DAILY g 01/04/19 10/09/20 aerosol inhaler Previous Rx's Medication Instructions Recorded buspirone 10 mg tablet 10 mg PO BID #60 tab 07/07/20 cariprazine 3 mg capsule 3 mg PO DAILY #30 cap 07/07/20 citalopram 40 mg tablet 40 mg PO DAILY #30 tab 07/07/20 hydroxyzine pamoate 25 mg capsule 25 mg PO TID PRN #90 cap 07/07/20 gabapentin 800 mg tablet 800 mg PO QID #120 tab 07/17/20 budesonide-formoterol HFA 80 2 puff INHALATION BID #10.2 g 07/20/20 mcg-4.5 mcg/actuation aerosol inhaler ergocalciferol (vitamin D2) 1,250 50,000 unit PO QWEEK #7 cap 08/09/20 mcg (50,000 unit) capsule cetirizine 10 mg tablet 10 mg PO DAILY #30 tab 10/09/20 Ondansetron [Zofran 4mg ODT] 4 mg PO TIDP PRN #6 tab 10/13/20 Allergies Allergy/AdvReac Type Severity Reac
[2020-10-13 15:08] VITALS: BP 113/76; PULSE 93; RESP 19; TEMP 37; O2SAT 100
--- NOTE | 2020-10-13 20:42 | PC.NURSE ---
Patients covid results reported as positive from lab. Patient notified and advised to quarantine until released by health dept.
== END 2020-10-13 15:10 | disposition home or self-care (01) ==
PROVIDERS: Emergency Provider Nurse Practitioner; PCP Emergency Medicine
DX: U07.1 COVID-19 (principal)
CPT/HCPCS: 99202; G0463; U0003

== ENCOUNTER 2020-10-20 10:59 | Emergency (ER) | payer OTHER, SELFPAY ==
[2020-10-20 11:09] VITALS: BP 114/68; PULSE 105; RESP 20; TEMP 37; O2SAT 97; BMI 39.3
[2020-10-20 11:20] VITALS: BP 114/68; PULSE 105; RESP 20; TEMP 37; O2SAT 97
--- NOTE | 2020-10-20 11:31 | HMH.EDUTC ---
[facility] [place] [facility] [place] Clinical Impression: COVID-19 Right otitis media Qualifiers: Otitis media type: suppurative Chronicity: acute Recurrence: non-recurrent Spontaneous tympanic membrane rupture: without spontaneous rupture Qualified Code(s): H66.001 - Acute suppurative otitis media without spontaneous rupture of ear drum, right ear Disposition: Home, Self-Care Condition on Discharge: Good Instructions: Middle Ear Infection, DI for COVID-19 (Suspected or Confirmed ), Preventing the Spread of Coronavirus Discharge Instructions Additional Instructions: Drink plenty of fluids. Take tylenol or ibuprofen for pain or fever. Take the medications as directed. Follow up with your regular doctor. GO TO THE ER FOR ANY WORSENING SYMPTOMS Prescriptions: Brompheniramine/Pseudoephed/Dm [Bromfed Dm Cough Syrup] 5 ml PO Q6HP PRN #240 syrup PRN Reason: Cough Transmission Status: Received by [facility] Ondansetron [Zofran 4mg ODT] 4 mg PO Q8HP PRN #12 tab.rapdis PRN Reason: Nausea Transmission Status: Received by [facility] Amoxicillin/Potassium Clav [Augmentin 875-125 Tablet] 1 tab PO Q12H 10 Days #20 tab Transmission Status: Received by [facility] Referrals: Kadeem Guerrero MD [Primary Care Provider] - Time of Disposition: 11:35 Medical Decision Making - Medical Records Medical records reviewed: No: I reviewed the patient's medical records. - Pal Inquiry Pt receiving controlled substance: No Vital Signs: 10/20/20 11:09 10/20/20 11:20 Temperature 98.6 F 98.6 F Temperature Source Oral Pulse Rate 105 H Pulse Rate [Right Brachial] 105 H Respiratory Rate 20 20 Blood Pressure 114/68 Blood Pressure [Right Arm] 114/68 Blood Pressure Mean [Right Arm] 83 Blood Pressure Source [Right Arm] Automatic Cuff Blood Pressure Position [Right Arm] Sitting 02 Sat by Pulse Oximetry 97 Oxygen Delivery Method Room Air [facility] [place] [facility] [place]PI - General Stated complaint: rt ear pain Time Seen by Provider: 10/20/20 11:31 Mode of Arrival: Ambulatory Source of Information: Patient Limitations: No Limitations Description of Symptoms (Recalled from Triage Doc. by RN): PATIENT C/O RIGHT EAR PAIN WITH DECREASED HEARING SINCE YESTERDAY HEENT Symptoms (Recalled from RN notes): Yes Resp Symptoms (Recalled from RN notes): No Skin Symptoms (Recalled from RN notes): No MS Symptoms (Recalled from RN notes): No Functional Status (Recalled from RN notes): WNL - History of Present Illness Provider Complaint: She has had a bad right ear ache since yesterday. She was diagnosed with covid-19 around 2 weeks ago. She states that she has began to feel some better, but then her ear started hurting yesterday. She has also been having a cough that has kept her from sleeping. She denies any shortness of breath. - Related Data Home Medications Medication Instructions Recorded Confirmed albuterol sulfate 90 mcg/actuation 1 puff INHALATION DAILY g 01/04/19 10/09/20 aerosol inhaler Previous Rx's Medication Instructions Recorded buspirone 10 mg tablet 10 mg PO BID #60 tab 07/07/20 cariprazine 3 mg capsule 3 mg PO DAILY #30 cap 07/07/20 citalopram 40 mg tablet 40 mg PO DAILY #30 tab 07/07/20 hydroxyzine pamoate 25 mg capsule 25 mg PO TID PRN #90 cap 07/07/20 gabapentin 800 mg tablet 800 mg PO QID #120 tab 07/17/20 budesonide-formoterol HFA 80 2 puff INHALATION BID #10.2 g 07/20/20 mcg-4.5 mcg/actuation aerosol inhaler ergocalciferol (vitamin D2) 1,250 50,000 unit PO QWEEK #7 cap 08/09/20 mcg (50,000 unit) capsule cetirizine 10 mg tablet 10 mg PO DAILY #30 tab 10/09/20 Ondansetron [Zofran 4mg ODT] 4 mg PO TIDP PRN #6 tab 10/13/20 Amoxicillin/Potassium Clav 1 tab PO Q12H 10 Days #20 tab 10/20/20 [Augmentin 875-125 Tablet] Brompheniramine/Pseudoephed/Dm 5 ml PO Q6HP PRN #240 syrup 10/20/20 [Bromfed Dm Cough Syrup] Ondansetron [Zofran 4mg ODT] 4 mg PO Q8HP PRN #12 tab.rapdis 10/20/20
== END 2020-10-20 11:35 | disposition home or self-care (01) ==
PROVIDERS: Emergency Provider Nurse Practitioner Family; PCP Emergency Medicine
DX: H66.001 Acute suppurative otitis media without spontaneous rupture of ear drum, right ear (principal); F41.8 Other specified anxiety disorders; J45.909 Unspecified asthma, uncomplicated; F17.290 Nicotine dependence, other tobacco product, uncomplicated
CPT/HCPCS: 99202; G0463

== ENCOUNTER → 2020-10-29 08:46 | Outpatient (CLI) | payer OTHER, SELFPAY | PROVIDERS: Visit Provider Nurse Practitioner Family | DX: M54.9 Dorsalgia, unspecified (principal) | CPT/HCPCS: 87086; 87088; 87186 ==

== ENCOUNTER 2020-11-10 10:02 | Emergency (ER) | payer OTHER, SELFPAY ==
[2020-11-10 10:10] VITALS: BP 145/86; PULSE 96; RESP 20; TEMP 36.8; O2SAT 96; BMI 41.3
--- NOTE | 2020-11-10 10:33 | CT_ITS ---
PROCEDURE: CT ABDOMEN PELVIS W CON CLINICAL INDICATION: abd pain COMPARISON: CT ABDPELWO CT abdomen pelvis wo con from 09/02/2018 TECHNIQUE: IV Contrast: 75 mL Isovue 370 Oral Contrast None Axial images obtained with sagittal and coronal reformats. All CT scans at the facility use one or more dose reduction, viz: automated exposure control, ma/kV adjustment per patient size (including targeted exams where dose is matched to indication, i.e. head), or iterative reconstruction technique. FINDINGS: LOWER THORAX: There is a small hiatal hernia ABDOMEN & PELVIS: Mild fatty liver. No focal liver lesion. The spleen, gallbladder, adrenal glands, and pancreas have an unremarkable appearance. No renal or ureteral calculi. No hydronephrosis. There mild amount of retained colonic feces. No evidence of appendicitis. No pelvic mass or abnormal fluid collection. There are few scattered air-fluid levels within the small bowel without distension. There are few scattered small mesenteric lymph nodes. Small hyperdensity is present in the small bowel centrally the pelvic area and could be due to ingested material. No acute bony anomalies. IMPRESSION: 1. Scattered nondistended fluid-filled small bowel loops of with a few air-fluid levels which could be seen with enteritis. 2. Mild amount of retained colonic feces. 3. Hiatal hernia Dictated by: Piter Morrow MD 11/10/2020 12:45 Piter Morrow MD in [place] 11/10/2020 12:45
[2020-11-10 10:44] LABS: Microscopic, Urine URINE MICROSCOPIC (MICROSCOPIC)
[2020-11-10 10:49] LABS: Appearance,Urine CLEAR (Clear); Bilirubin,Urine Negative (Negative); Blood, Urine 1+ (Negative); Color,Urine YELLOW (Yellow); Glucose,Urine (UA) Negative (Negative); Ketones,Urine Negative (Negative); Leukocyte Esterase,Urine Negative (Negative); Nitrate,Urine Negative (Negative); PH,Urine 6.5 (5.0-8.5); Protein,Urine Negative (Negative); Urobilinogen,Urine 0.2 EU/dl (0.2)
[2020-11-10 10:55] LABS: Squamous Epithelial Cell,Urine Occasional #/hpf (0-5); WBC,Urine Occasional #/hpf (0-3)
[2020-11-10 10:59] LABS: Basophils # 0.1 K/mm3 (0-0.2); Basophils % 0.7 % (0.1-2.0); Eosinophils # 0.2 K/mm3 (0.0-0.4); Eosinophils % 2.5 % (0.1-12.0); Hemoglobin 14.4 g/dL (12.2-16.2); Lymphocytes # 1.6 K/mm3 (0.7-4.5); Lymphocytes % 16.7 % (10-50); Mean Corpuscular HGB Conc 32.7 g/dL (31.8-35.4); Mean Corpuscular Hemoglobin 27.6 pg (27.0-31.2); Mean Corpuscular Volume 84.3 fl (81-99); Mean Platelet Volume 7.2 fl (7.4-10.4); Monocytes # 0.5 K/mm3 (0.1-1.0); Monocytes % 4.9 % (1.7-9.3); Neutrophils # 7.2 K/mm3 (1.8-7.8); Neutrophils % 75.2 % (37.0-80.0); Platelet Count 513 K/mm3 (142-424); Red Blood Count 5.22 M/mm3 (4.20-5.40); Red Cell Distribution Width 13.4 % (11.5-17.5); White Blood Count 9.6 K/mm3 (4.8-10.8)
[2020-11-10 11:06] LABS: Chloride 104 mmol/L (98-107); Sodium 139 mmol/L (136-145)
[2020-11-10 11:08] LABS: Alanine Aminotransferase 37 U/L (12-78); Amylase 70 U/L (30-110); Blood Urea Nitrogen 7 mg/dl (7-17); Creatinine Clearance Estimated 146 mL/min (50-200); Estimated Glomerular Filt Rate 154 ml/min (>60); GFR (African American) 187 ML/MIN (>60)
[2020-11-10 11:09] LABS: Albumin/Globulin Ratio 1.1 (1.1-1.8); Alkaline Phosphatase 91 U/L (38-126); Aspartate Amino Transferase 33 U/L (14-36); Calcium 8.9 mg/dl (8.4-10.2); Carbon Dioxide 24 mmol/L (22.0-30.0); Globulin 3.6 g/dL (1.3-3.2); Glucose 116 mg/dl (74-100); Lipase 36 U/L (23-300); Total Protein,Serum 7.6 g/dl (6.3-8.2)
[2020-11-10 11:10] LABS: Bilirubin,Total < 0.1 mg/dl (0.2-1.3)
--- NOTE | 2020-11-10 11:38 | HMH.EDGENADL ---
ED Disposition Clinical Impression: Bloody diarrhea Disposition: Home, Self-Care Condition on Discharge: Good Additional Instructions: Take vancomycin as prescribed. Follow-up with primary care doctor for results of diarrhea panel. Results should be available within 24 hours. Return to emergency department for worsening symptoms, persistent vomiting, fever, severe abdominal pain. Prescriptions: Vancomycin HCl 125 mg PO QID #40 cap Transmission Status: Pending to [facility] Referrals: Kadeem Guerrero MD [Primary Care Provider] - Forms: Work/School Release - Critical Care Critical Care Time: No Attestation: On 11/10/20, the high probability of a clinically significant, sudden or life threatening deterioration of the following system(s) required my full and direct attention, intervention and personal management. The time I documented below is in addition to time spent performing reported procedures but includes the following listed in this critical care notation. Medical Decision Making - Medical Records Medical records reviewed: Yes: I reviewed the patient's medical records. MR Comment: Prescribed Keflex for UTI symptoms 10/28/2020. Culture result reviewed. Positive for E. coli 10-20,000 colonies. Seen in the urgent treatment center on 10/20/2020 for earache, prescribed Augmentin. - Pal Inquiry Pt receiving controlled substance: No Vital Signs: 11/10/20 10:10 Temperature 98.2 F Temperature Source Oral Pulse Rate [Right Brachial] 96 H Respiratory Rate 20 Blood Pressure [Right Arm] 145/86 H Blood Pressure Mean [Right Arm] 105 Blood Pressure Source [Right Arm] Automatic Cuff Blood Pressure Position [Right Arm] Sitting 02 Sat by Pulse Oximetry 96 Oxygen Delivery Method Room Air - Lab Data Lab Results 11/10/20 10:34: Urine Color Yellow, Urine Appearance Clear, Urine pH 6.5, Ur Specific [place] 1.020, Urine Protein Negative, Urine Glucose (UA) Negative, Urine Ketones Negative, Urine Blood 1+, Urine Nitrate Negative, Urine Bilirubin Negative, Urine Urobilinogen 0.2, Ur Leukocyte Esterase Negative, Urine RBC 3-5, Urine WBC Occasional, Ur Squamous Epith Cells Occasional, Urine Bacteria None 11/10/20 10:34: Urine HCG, Qual Negative 11/10/20 10:50: WBC 9.6, RBC 5.22, Hgb 14.4, Hct 44.0, MCV 84.3, MCH 27.6, MCHC 32.7, RDW 13.4, Plt Count 513 H, MPV 7.2 L, Neut % (Auto) 75.2, Lymph % (Auto) 16.7, [place] % (Auto) 4.9, Eos % (Auto) 2.5, Baso % (Auto) 0.7, Neut # (Auto) 7.2, Lymph # (Auto) 1.6, [place] # (Auto) 0.5, Eos # (Auto) 0.2, Baso # (Auto) 0.1 11/10/20 10:50: Sodium 139, Potassium 4.0, Chloride 104, Carbon Dioxide 24, Anion Gap 15.0, BUN 7, Creatinine 0.50 L, Estimated Creat Clear 146, Estimated GFR 154, Est GFR ( Amer) 187, Glucose 116 H, Calcium 8.9, Total Bilirubin < 0.1 L, AST 33, ALT 37, Alkaline Phosphatase 91, Total Protein 7.6, Albumin 4.0, Globulin 3.6 H, Albumin/Globulin Ratio 1.1, Amylase 70, Lipase 36 Result diagrams: 11/10/20 10:50 11/10/20 10:50 Orders (Tests/Meds): ED MEDICATIONS Discontinued Medications Generic Name Dose Route Start Last Admin Trade Name Freq PRN Reason Stop Dose Admin Iopamidol 75 ml 11/10/20 12:30 11/10/20 12:31 Iopamidol-370 (76%);100ml Bottle IV 11/10/20 12:31 75 ml ONCE ONE Administration Sodium Chloride 10 ml 11/10/20 12:31 11/10/20 12:31 Sodium Chloride 0.9% 10ml Syr (Rad Only) IV 11/10/20 12:32 10 ml ONCE ONE Administration ORDERS Category Date Time Status Diarrhea 6-11 Panel, Cdiff PCR Stat Lab 11/10/20 12:55 Received - CT Data CT Scan: Abdomen, Pelvis Time Received: 12:[address] Reviewed: Yes: I have viewed the radiologist's interpretation Findings Narrative: PROCEDURE: CT ABDOMEN PELVIS W CON CLINICAL INDICATION: abd pain COMPARISON: CT ABDPELWO CT abdomen pelvis wo con from 09/02/2018 TECHNIQUE: IV Contrast: 75 mL Isovue 370 Oral Contrast None Axial images obtained with sagittal and coron
[2020-11-10 12:08] LABS: Urine Pregnancy, HCG Qual. Negative (Negative)
--- NOTE | 2020-11-10 12:20 | PC.NURSE ---
pt going to CT
[2020-11-10 12:59] LABS: Adenovirus F 40/41, stool Not Detected (NotDetected); Astrovirus Not Detected (NotDetected); Campylobacter Not Detected (NotDetected); Cryptosporidium Not Detected (NotDetected); Cyclospora Cayetanesis Not Detected (NotDetected); Entamoeba histolytica Not Detected (NotDetected); Enteroaggregative E coli Not Detected (NotDetected); Enteropathogenic E coli Not Detected (NotDetected); Enterotoxigenic E coli Not Detected (NotDetected); Giardia lamblia Not Detected (NotDetected); Norovirus Not Detected (NotDetected); Plesimonas Shigalloides, PCR Not Detected (NotDetected); Rotavirus A Not Detected (NotDetected); Salmonella, PCR Not Detected (NotDetected); Sapovirus Not Detected (NotDetected); Shiga-like toxin E coli Not Detected (NotDetected); Shigella Enterovasive E coli Not Detected (NotDetected); Vibrio Cholerae Not Detected (NotDetected); Vibrio, PCR Not Detected (NotDetected); Yersinia Entercolitica, PCR Not Detected (NotDetected)
[2020-11-10 14:04] VITALS: BP 150/84; PULSE 76; RESP 20; TEMP 36.7; O2SAT 97
[2020-11-10 16:00] LABS: Clostridium Difficile A/B, PCR Detected (NotDetected)
--- NOTE | 2020-11-10 16:09 | PC.NURSE ---
spoke with pt to notify her of positive for cdiff in stool. Pt states she had not gotten her prescription from pharmacy yet, states there was an issue with it. Contacted [facility] pharmacy, spoke with pharmacy states the medication needs a prior authorization. Notified ER MD, states unable to do PA. Contacted pt back, explained PA to pt, states she is unable to pay for medication. ER MD states to ask pt about taking flagyl which is not the perferred treatment. Pt states she is going to contact her PCP and see if they will do the PA for medication. States she will contact ER if PCP is unable to do PA.
== END 2020-11-10 14:10 | disposition home or self-care (01) ==
PROVIDERS: Emergency Provider Emergency Medicine; PCP Emergency Medicine
DX: A04.72 Enterocolitis due to Clostridium difficile, not specified as recurrent (principal); R19.7 Diarrhea, unspecified; R11.10 Vomiting, unspecified; F41.8 Other specified anxiety disorders; M79.7 Fibromyalgia
CPT/HCPCS: 74177; 80053; 81001; 81025; 82150; 83690; 85025; 87506; 99283; Q9967

== ENCOUNTER 2020-12-11 12:28 | Emergency (ER) | payer OTHER, SELFPAY ==
[2020-12-11] VITALS (10 sets, daily range): BP systolic 110–131; BP diastolic 58–73; PULSE 76–104; RESP 14–16; TEMP 36.7; O2SAT 94–97; BMI 42.9
--- NOTE | 2020-12-11 12:45 | CT_ITS ---
PROCEDURE: CT ABDOMEN PELVIS WO CON CLINICAL INDICATION: lower abd pain Bright red blood per rectum COMPARISON: CT CT ABDOMEN PELVIS W CON from 11/10/2020 TECHNIQUE: Axial images obtained with sagittal and coronal reformats. All CT scans at the facility use one or more dose reduction, viz: automated exposure control, ma/kV adjustment per patient size (including targeted exams where dose is matched to indication, i.e. head), or iterative reconstruction technique. FINDINGS: LOWER THORAX: No acute finding ABDOMEN & PELVIS: The liver, spleen, the adrenal glands, pancreas, and kidneys have an unremarkable appearance. Small hiatal hernia. No intestinal obstruction or free air. No evidence of appendicitis. There are few scattered small mesenteric lymph nodes not significantly changed. No acute bony findings. IMPRESSION: No acute finding Dictated by: Piter Morrow MD 12/11/2020 14:52 Piter Morrow MD in [place] 12/11/2020 14:52
[2020-12-11 13:04] LABS: Microscopic, Urine URINE MICROSCOPIC (MICROSCOPIC)
[2020-12-11 13:06] LABS: Appearance,Urine CLEAR (Clear); Bilirubin,Urine Negative (Negative); Blood, Urine Negative (Negative); Color,Urine YELLOW (Yellow); Glucose,Urine (UA) Negative (Negative); Ketones,Urine Negative (Negative); Leukocyte Esterase,Urine Negative (Negative); Nitrate,Urine Negative (Negative); Protein,Urine Negative (Negative); Urobilinogen,Urine 0.2 EU/dl (0.2)
[2020-12-11 13:07] LABS: Urine Pregnancy, HCG Qual. Negative (Negative)
--- NOTE | 2020-12-11 13:19 | PC.NURSE ---
pt to radiology
[2020-12-11 13:52] LABS: Chloride 103 mmol/L (98-107); Potassium 3.9 mmoL/L (3.5-5.1); Sodium 138 mmol/L (136-145)
[2020-12-11 13:55] LABS: Alanine Aminotransferase 23 U/L (12-78); Albumin Level 4.1 g/dl (3.5-5.0); Albumin/Globulin Ratio 1.1 (1.1-1.8); Alkaline Phosphatase 99 U/L (38-126); Amylase 69 U/L (30-110); Anion Gap 12.9 mEq/L (5-15); Aspartate Amino Transferase 26 U/L (14-36); Bilirubin,Total 0.1 mg/dl (0.2-1.3); Blood Urea Nitrogen 6 mg/dl (7-17); Calcium 9.4 mg/dl (8.4-10.2); Carbon Dioxide 26 mmol/L (22.0-30.0); Creatinine Clearance Estimated 152 mL/min (50-200); Estimated Glomerular Filt Rate 154 ml/min (>60); GFR (African American) 187 ML/MIN (>60); Globulin 3.7 g/dL (1.3-3.2); Glucose 87 mg/dl (74-100); Lipase 26 U/L (23-300); Total Protein,Serum 7.8 g/dl (6.3-8.2)
[2020-12-11 14:03] LABS: Basophils # 0.1 K/mm3 (0-0.2); Basophils % 0.5 % (0.1-2.0); Eosinophils # 0.2 K/mm3 (0.0-0.4); Eosinophils % 2.1 % (0.1-12.0); Lymphocytes # 1.8 K/mm3 (0.7-4.5); Mean Corpuscular HGB Conc 32.7 g/dL (31.8-35.4); Mean Corpuscular Hemoglobin 28.2 pg (27.0-31.2); Mean Corpuscular Volume 86.2 fl (81-99); Mean Platelet Volume 6.5 fl (7.4-10.4); Monocytes # 0.5 K/mm3 (0.1-1.0); Monocytes % 5.2 % (1.7-9.3); Neutrophils # 6.4 K/mm3 (1.8-7.8); Neutrophils % 72.2 % (37.0-80.0); Platelet Count 490 K/mm3 (142-424); Red Blood Count 5.33 M/mm3 (4.20-5.40); Red Cell Distribution Width 13.8 % (11.5-17.5); White Blood Count 8.9 K/mm3 (4.8-10.8)
--- NOTE | 2020-12-11 16:04 | HMH.EDGIBL ---
ED Disposition Clinical Impression: Acute lower GI bleeding Disposition: Home, Self-Care Condition on Discharge: Good Instructions: DI for Rectal Bleeding Additional Instructions: see pcp for follow up Referrals: Kadeem Guerrero MD [Primary Care Provider] - - Critical Care Critical Care Time: No Attestation: On 12/11/20, the high probability of a clinically significant, sudden or life threatening deterioration of the following system(s) required my full and direct attention, intervention and personal management. The time I documented below is in addition to time spent performing reported procedures but includes the following listed in this critical care notation. Medical Decision Making - Medical Records Medical records reviewed: Yes: I reviewed the patient's medical records. - Pal Inquiry Pt receiving controlled substance: No Vital Signs: 12/11/20 12:29 12/11/20 12:38 12/11/20 13:00 Temperature 98.0 F Temperature Source Oral Pulse Rate 76 Pulse Rate [Right Radial] 79 Respiratory Rate 14 Blood Pressure 131/69 122/73 Blood Pressure [Right Arm] 131/69 Blood Pressure Mean 110 87 Blood Pressure Mean [Right Arm] 89 Blood Pressure Source [Right Arm] Automatic Cuff Blood Pressure Position [Right Arm] Sitting 02 Sat by Pulse Oximetry 97 Oxygen Delivery Method Room Air 12/11/20 13:30 12/11/20 14:00 Temperature Temperature Source Pulse Rate 104 H Pulse Rate [Right Radial] Respiratory Rate 16 16 Blood Pressure 110/58 L 122/61 Blood Pressure [Right Arm] Blood Pressure Mean 76 Blood Pressure Mean [Right Arm] Blood Pressure Source [Right Arm] Blood Pressure Position [Right Arm] 02 Sat by Pulse Oximetry 94 L 97 Oxygen Delivery Method - Lab Data Lab results reviewed: Yes: I reviewed the patient's lab results. Lab Results 12/11/20 13:00: Urine Color Yellow, Urine Appearance Clear, Urine pH 7.0, Ur Specific [place] 1.020, Urine Protein Negative, Urine Glucose (UA) Negative, Urine Ketones Negative, Urine Blood Negative, Urine Nitrate Negative, Urine Bilirubin Negative, Urine Urobilinogen 0.2, Ur Leukocyte Esterase Negative, Urine RBC None, Urine WBC 3-5, Ur Squamous Epith Cells 3-5, Urine Bacteria None 12/11/20 13:00: Urine HCG, Qual Negative 12/11/20 13:35: WBC 8.9, RBC 5.33, Hgb 15.0, Hct 46.0, MCV 86.2, MCH 28.2, MCHC 32.7, RDW 13.8, Plt Count 490 H, MPV 6.5 L, Neut % (Auto) 72.2, Lymph % (Auto) 20.0, [place] % (Auto) 5.2, Eos % (Auto) 2.1, Baso % (Auto) 0.5, Neut # (Auto) 6.4, Lymph # (Auto) 1.8, [place] # (Auto) 0.5, Eos # (Auto) 0.2, Baso # (Auto) 0.1 12/11/20 13:35: Sodium 138, Potassium 3.9, Chloride 103, Carbon Dioxide 26, Anion Gap 12.9, BUN 6 L, Creatinine 0.50 L, Estimated Creat Clear 152, Estimated GFR 154, Est GFR ( Amer) 187, Glucose 87, Calcium 9.4, Total Bilirubin 0.1 L, AST 26, ALT 23, Alkaline Phosphatase 99, Total Protein 7.8, Albumin 4.1, Globulin 3.7 H, Albumin/Globulin Ratio 1.1, Amylase 69, Lipase 26 Result diagrams: 12/11/20 13:35 12/11/20 13:35 Orders (Tests/Meds): ED MEDICATIONS Discontinued Medications Generic Name Dose Route Start Last Admin Trade Name Leonarda PRN Reason Stop Dose Admin Acetaminophen 650 mg 12/11/20 14:49 12/11/20 14:52 Acetaminophen 325mg Tab PO 12/11/20 14:50 650 mg ONCE ONE Administration ORDERS Category Date Time Status Occult Blood,Stool Stat Lab 12/11/20 16:03 Ordered - CT Data CT Scan: Abdomen, Pelvis Time Received: 16:[address] Reviewed: Yes: I have viewed the radiologist's interpretation Preliminary Findings: Normal/NAD Medical Decision Narrative: stable exam and labs - possible hemorrhoids -int will see pcp monday GI Bleed HPI - General Chief complaint: Abdominal Pain Stated complaint: bloody stool, abdominal pains Time Seen by Provider: 12/11/20 16:04 Mode of Arrival: Ambulatory Source of Information: Patient, Medical Record Limitations: No Limitations
[2020-12-11 16:19] LABS: Occult Blood,Stool Negative (Negative)
== END 2020-12-11 16:23 | disposition home or self-care (01) ==
PROVIDERS: Emergency Provider Emergency Medicine; PCP Emergency Medicine
DX: K92.2 Gastrointestinal hemorrhage, unspecified (principal); F41.8 Other specified anxiety disorders
CPT/HCPCS: 74176; 80053; 81001; 81025; 82150; 82272; 83690; 85025; 99283; G0328

== ENCOUNTER → 2020-12-24 16:16 | Outpatient (CLI) | payer OTHER, SELFPAY ==
[2020-12-26 08:14] LABS: Progesterone 0.1 ng/mL (.)
== END ==
PROVIDERS: Visit Provider Obstetrics & Gynecology
DX: Z34.90 Encounter for supervision of normal pregnancy, unspecified, unspecified trimester (principal)
CPT/HCPCS: 36415; 84144

== ENCOUNTER → 2021-01-27 18:53 | Outpatient (CLI) | payer OTHER, SELFPAY ==
[2021-01-27 19:14] LABS: Basophils # 0.1 K/mm3 (0-0.2); Basophils % 0.6 % (0.1-2.0); Eosinophils # 0.2 K/mm3 (0.0-0.4); Eosinophils % 1.8 % (0.1-12.0); Hematocrit 43.7 % (37.0-47.0); Hemoglobin 14.6 g/dL (12.2-16.2); Lymphocytes % 19.1 % (10-50); Mean Corpuscular HGB Conc 33.4 g/dL (31.8-35.4); Mean Corpuscular Hemoglobin 28.9 pg (27.0-31.2); Mean Corpuscular Volume 86.6 fl (81-99); Mean Platelet Volume 8.3 fl (7.4-10.4); Monocytes # 0.6 K/mm3 (0.1-1.0); Monocytes % 5.3 % (1.7-9.3); Neutrophils # 7.8 K/mm3 (1.8-7.8); Neutrophils % 73.1 % (37.0-80.0); Platelet Count 575 K/mm3 (142-424); Red Blood Count 5.05 M/mm3 (4.20-5.40); Red Cell Distribution Width 14.8 % (11.5-17.5); White Blood Count 10.7 K/mm3 (4.8-10.8)
[2021-01-27 20:21] LABS: Alanine Aminotransferase 76 U/L (12-78); Albumin Level 4.6 g/dl (3.5-5.0); Albumin/Globulin Ratio 1.5 (1.1-1.8); Alkaline Phosphatase 96 U/L (38-126); Anion Gap 17.3 mEq/L (5-15); Aspartate Amino Transferase 62 U/L (14-36); Bilirubin,Total 0.3 mg/dl (0.2-1.3); Blood Urea Nitrogen 11 mg/dl (7-17); Calcium 9.5 mg/dl (8.4-10.2); Carbon Dioxide 25 mmol/L (22.0-30.0); Chloride 100 mmol/L (98-107); Estimated Glomerular Filt Rate 154 ml/min (>60); GFR (African American) 187 ML/MIN (>60); Glucose 107 mg/dl (74-100); Potassium 4.3 mmoL/L (3.5-5.1); Sodium 138 mmol/L (136-145); Total Protein,Serum 7.6 g/dl (6.3-8.2)
[2021-01-29 09:25] LABS: Hep A Ab, IgM Negative (Negative); Hepatitis B Core Antibody IgM Negative (Negative); Hepatitis B Surface Antigen Negative (Negative); Hepatitis C Antibody 0.1 s/co ratio (0.0-0.9)
== END ==
PROVIDERS: Visit Provider Emergency Medicine
DX: M54.16 Radiculopathy, lumbar region (principal); M46.1 Sacroiliitis, not elsewhere classified; M79.7 Fibromyalgia; R94.5 Abnormal results of liver function studies
CPT/HCPCS: 80053; 80074; 85025

== ENCOUNTER → 2021-01-29 14:04 | Outpatient (CLI) | payer OTHER, SELFPAY ==
[2021-02-01 16:10] LABS: Progesterone 4.5 ng/mL (.)
== END ==
PROVIDERS: Visit Provider Obstetrics & Gynecology
DX: N97.9 Female infertility, unspecified (principal)
CPT/HCPCS: 36415; 84144

== ENCOUNTER → 2021-02-10 18:17 | Outpatient (CLI) | payer OTHER, SELFPAY ==
[2021-02-10 18:20] LABS: Microscopic, Urine URINE MICROSCOPIC (MICROSCOPIC)
[2021-02-10 18:36] LABS: Appearance,Urine SL CLOUDY (Clear); Bilirubin,Urine Negative (Negative); Blood, Urine Negative (Negative); Color,Urine YELLOW (Yellow); Glucose,Urine (UA) Negative (Negative); Ketones,Urine Negative (Negative); Leukocyte Esterase,Urine Negative (Negative); Nitrate,Urine Negative (Negative); Protein,Urine Negative (Negative); Specific Gravity, Urine >= 1.030 (1.005-1.030); Urobilinogen,Urine 0.2 EU/dl (0.2)
[2021-02-10 18:44] LABS: Basophils # 0.1 K/mm3 (0-0.2); Basophils % 0.4 % (0.1-2.0); Eosinophils # 0.2 K/mm3 (0.0-0.4); Eosinophils % 1.6 % (0.1-12.0); Hematocrit 44.9 % (37.0-47.0); Hemoglobin 14.8 g/dL (12.2-16.2); Lymphocytes # 2.3 K/mm3 (0.7-4.5); Lymphocytes % 20.7 % (10-50); Mean Corpuscular Hemoglobin 28.7 pg (27.0-31.2); Mean Platelet Volume 8.6 fl (7.4-10.4); Monocytes # 0.6 K/mm3 (0.1-1.0); Monocytes % 5.2 % (1.7-9.3); Platelet Count 694 K/mm3 (142-424); Red Blood Count 5.16 M/mm3 (4.20-5.40); Red Cell Distribution Width 13.5 % (11.5-17.5); White Blood Count 11.1 K/mm3 (4.8-10.8)
[2021-02-10 18:47] LABS: Bacteria,Urine 2+ /lpf
[2021-02-10 18:58] LABS: HCG Qualitative, Serum Negative (Negative)
[2021-02-10 19:05] LABS: Alanine Aminotransferase 25 U/L (12-78); Albumin Level 4.2 g/dl (3.5-5.0); Albumin/Globulin Ratio 1.4 (1.1-1.8); Alkaline Phosphatase 79 U/L (38-126); Anion Gap 12.1 mEq/L (5-15); Aspartate Amino Transferase 31 U/L (14-36); Bilirubin,Total 0.2 mg/dl (0.2-1.3); Blood Urea Nitrogen 12 mg/dl (7-17); Calcium 9.5 mg/dl (8.4-10.2); Carbon Dioxide 27 mmol/L (22.0-30.0); Chloride 104 mmol/L (98-107); Estimated Glomerular Filt Rate 105 ml/min (>60); GFR (African American) 127 ML/MIN (>60); Glucose 81 mg/dl (74-100); Lipase 59 U/L (23-300); Potassium 4.1 mmoL/L (3.5-5.1); Sodium 139 mmol/L (136-145); Total Protein,Serum 7.2 g/dl (6.3-8.2)
[2021-02-10 19:11] LABS: Erythrocyte Sedimentation Rate 14 mm/hr (0-20)
[2021-02-10 19:16] LABS: Free T4 (Free Thyroxine) 1.41 ng/dl (0.78-2.19)
[2021-02-10 19:17] LABS: 25-OH Vitamin D, Total 29.3 ng/mL (30-100)
[2021-02-10 19:32] LABS: Thyroid Stimulating Hormone 1.07 uIU/mL (0.465-4.68)
== END ==
PROVIDERS: Visit Provider Emergency Medicine
DX: R53.83 Other fatigue (principal); E55.9 Vitamin D deficiency, unspecified
CPT/HCPCS: 80053; 81001; 82306; 83690; 84439; 84443; 84703; 85025; 85651; 87086

== ENCOUNTER 2021-02-13 14:10 | Emergency (ER) | payer OTHER, SELFPAY ==
[2021-02-13 15:44] VITALS: BP 134/86; PULSE 87; RESP 16; TEMP 37; O2SAT 100; BMI 43.7
--- NOTE | 2021-02-13 16:39 | HMH.EDUTC ---
[facility] [place] Clinical Impression: Bilateral foot pain, Plantar fasciitis, bilateral Disposition: Home, Self-Care Condition on Discharge: Good Instructions: Plantar Fasciitis, DI for Plantar Fasciitis, DI for Peripheral Edema -- Bilateral Additional Instructions: Rest and elevate your feet as much time as possible for the next couple of days. Take tylenol for pain. Follow up with Dr. Ramirez (podiatry) regarding your foot pain and symptoms. I put in a new referral but you need to call her office and schedule an appointment. Follow up with Dr. Guerrero also. GO TO THE ER FOR ANY WORSENING SYMPTOMS Referrals: Kadeem Guerrero MD [Primary Care Provider] - Batsheva Ramirez DPM [Staff Physician] - Forms: Work/School Release Medical Decision Making - Medical Records Medical records reviewed: No: I reviewed the patient's medical records. - Pal Inquiry Pt receiving controlled substance: No Vital Signs: 02/13/21 15:44 02/13/21 17:18 Temperature 98.6 F 98.6 F Temperature Source Oral Pulse Rate 87 Pulse Rate [Left] 87 Respiratory Rate 16 16 Blood Pressure 134/86 Blood Pressure [Right Arm] 134/86 Blood Pressure Mean [Right Arm] 102 02 Sat by Pulse Oximetry 100 [facility] [place] - General Stated complaint: feet swollen, painful Time Seen by Provider: 02/13/21 16:39 Mode of Arrival: Ambulatory Source of Information: Patient Limitations: No Limitations Description of Symptoms (Recalled from Triage Doc. by RN): pt states she started a new job at [employer] three days ago. since pt c/o bilateral edema in her feet and pain. HEENT Symptoms (Recalled from RN notes): No Resp Symptoms (Recalled from RN notes): No Skin Symptoms (Recalled from RN notes): No MS Symptoms (Recalled from RN notes): Yes (bilateral edema and pain in pts feet) Functional Status (Recalled from RN notes): wnl - History of Present Illness Provider Complaint: She states that she has recently (3 days ago) started a new job that she has be on her feet for 8 hours per shift. During her work shift her bilateral feet and ankles are swelling and this causes her to have bilateral foot pain. She states that the pain got so bad today that she had to leave work, so she came here to be checked. She has a history of plantar fascitis that she used to see Dr. Ramirez for, but she stopped going because her foot pain got better for a while. - Related Data Home Medications Medication Instructions Recorded Confirmed albuterol sulfate 90 mcg/actuation 1 puff INHALATION DAILY g 01/04/19 02/10/21 aerosol inhaler fluoxetine 20 mg capsule 20 mg PO DAILY 01/27/21 02/10/21 Previous Rx's Medication Instructions Recorded budesonide-formoterol HFA 80 2 puff INHALATION BID #10.2 g 07/20/20 mcg-4.5 mcg/actuation aerosol inhaler cetirizine 10 mg tablet 10 mg PO DAILY #30 tab 12/14/20 vits no.126-ferrous fum 1 tab PO DAILY #90 tab 12/24/20 28 mg iron-folic acid 800 mcg tablet gabapentin 800 mg tablet 800 mg PO QID #120 tab 12/25/20 buspirone 10 mg tablet 10 mg PO BID #60 tab 01/04/21 hydroxyzine pamoate 25 mg capsule 25 mg PO TID PRN #90 cap 01/04/21 olanzapine 10 mg tablet 10 mg PO HS #30 tab 01/04/21 Allergies Allergy/AdvReac Type Severity Reaction Status Date / Time No Known Allergies Allergy Verified 02/10/21 13:48 - Worker's Comp Is this a Worker's Comp case?: No [facility] History - Hepatitis A Screen Drug use history?: No High risk sexual behaviors?: No History of sexually transmitted infection?: No Currently employed?: No Childcare worker?: No Do you have indoor plumbing?: Yes Do you have electricity?: Yes Attestation statement:: This patient has been screened for Hepatitis A risk factors. I have reviewed the patient's past medical history: Yes Medical History: Reports:: Anxiety, Asthma, Depression, Urinary Tract Infection Denies:: Cancer, Diabetes Mellitus Type 1, Diabetes Mellitus Type 2, Hyperlipide
[2021-02-13 17:18] VITALS: BP 134/86; PULSE 87; RESP 16; TEMP 37
== END 2021-02-13 17:21 | disposition home or self-care (01) ==
PROVIDERS: Emergency Provider Nurse Practitioner Family; PCP Emergency Medicine
DX: M72.2 Plantar fascial fibromatosis (principal); F41.8 Other specified anxiety disorders; J45.909 Unspecified asthma, uncomplicated; M79.7 Fibromyalgia; F17.290 Nicotine dependence, other tobacco product, uncomplicated
CPT/HCPCS: 99202; G0463

== ENCOUNTER 2021-02-15 17:59 | Emergency (ER) | payer OTHER, SELFPAY ==
[2021-02-15 18:00] VITALS: BP 116/81; PULSE 92; RESP 16; TEMP 37.2; O2SAT 98; BMI 43.0
--- NOTE | 2021-02-15 18:22 | HMH.EDGENADL ---
ED Disposition Clinical Impression: UTI (urinary tract infection) Qualifiers: Urinary tract infection type: acute cystitis Hematuria presence: with hematuria Qualified Code(s): N30.01 - Acute cystitis with hematuria Disposition: Home, Self-Care Condition on Discharge: Good Instructions: DI for Diarrhea and Traveler's Diarrhea -- Adult, DI for Diarrhea and Traveler's Diarrhea -- Child, DI for Nausea -- Adult, DI for Nausea -- Child Additional Instructions: Take antibiotics as directed, okay to take Tylenol, Motrin as needed for pain. It is also okay to take Zofran for nausea and vomiting. Drink plenty fluids, stay hydrated. Follow-up with your primary care physician within the next 1 to 3 days. Prescriptions: Cefdinir [Omnicef 300mg Capsule] 300 mg PO BID 7 Days #14 cap Transmission Status: Received by [facility] Referrals: Marta Geurrero DO [Referring] - - Critical Care Critical Care Time: No Attestation: On 02/15/21, the high probability of a clinically significant, sudden or life threatening deterioration of the following system(s) required my full and direct attention, intervention and personal management. The time I documented below is in addition to time spent performing reported procedures but includes the following listed in this critical care notation. Medical Decision Making - Medical Records Medical records reviewed: Yes: I reviewed the patient's medical records. - Pal Inquiry Pt receiving controlled substance: No Vital Signs: 02/15/21 18:00 02/15/21 19:38 02/15/21 21:28 Temperature 99.0 F 98.2 F Temperature Source Oral Pulse Rate 78 78 Pulse Rate [Left Radial] 92 H Respiratory Rate 16 16 Blood Pressure 110/49 L 110/49 L Blood Pressure [Right Arm] 116/81 Blood Pressure Mean [Right Arm] 92 Blood Pressure Source [Right Arm] Automatic Cuff Blood Pressure Position [Right Arm] Sitting 02 Sat by Pulse Oximetry 98 95 Oxygen Delivery Method Room Air Room Air Room Air - Lab Data Lab Results 02/15/21 18:10: Urine Color Yellow, Urine Appearance Cloudy, Urine pH 6.0, Ur Specific [place] 1.025, Urine Protein Negative, Urine Glucose (UA) Negative, Urine Ketones Negative, Urine Blood 3+, Urine Nitrate Negative, Urine Bilirubin Negative, Urine Urobilinogen 0.2, Ur Leukocyte Esterase Negative, Urine RBC 10-20, Urine WBC 10-20, Ur Squamous Epith Cells 3-5, Urine Bacteria 4+ 02/15/21 18:20: SARS-CoV-2 (PCR) Not detected, Influenza A Untype (PCR) Not detected, Influenza Type B (PCR) Not detected 02/15/21 18:30: WBC 9.7, RBC 5.16, Hgb 14.6, Hct 44.7, MCV 86.7, MCH 28.4, MCHC 32.7, RDW 13.2, Plt Count 536 H, MPV 7.4, Neut % (Auto) 74.8, Lymph % (Auto) 18.3, [place] % (Auto) 4.4, Eos % (Auto) 1.8, Baso % (Auto) 0.6, Neut # (Auto) 7.2, Lymph # (Auto) 1.8, [place] # (Auto) 0.4, Eos # (Auto) 0.2, Baso # (Auto) 0.1 02/15/21 18:30: Sodium 139, Potassium 3.7, Chloride 103, Carbon Dioxide 26, Anion Gap 13.7, BUN 6 L, Creatinine 0.60, Estimated Creat Clear 127, Estimated GFR 125, Est GFR ( Amer) 151, Glucose 114 H, Calcium 9.2, Total Bilirubin < 0.1 L, AST 33, ALT 36, Alkaline Phosphatase 76, Total Protein 7.7, Albumin 4.4, Globulin 3.3 H, Albumin/Globulin Ratio 1.3 02/15/21 18:30: Serum HCG, Qual Negative 02/15/21 18:30: Lipase 45 02/15/21 19:43: Lactate 1.1 Result diagrams: 02/15/21 18:30 02/15/21 18:30 Orders (Tests/Meds): ED MEDICATIONS Discontinued Medications Generic Name Dose Route Start Last Admin Trade Name Freq PRN Reason Stop Dose Admin Sodium Chloride 1,000 mls @ 999 mls/hr 02/15/21 18:30 02/15/21 18:33 Sod Chlor 0.9% 1000ml Bag IV 02/15/21 19:30 999 mls/hr .Q1H1M LUCY Administration Ondansetron HCl 4 mg 02/15/21 18:20 02/15/21 18:33 Ondansetron 4mg/2ml Vial IV 02/15/21 18:21 4 mg ONCE ONE Administration ORDERS Category Date Time Status Urine Culture Stat Micro 02/15/21 18:10 Received Medical Decision Narrative: 20-year-old f
[2021-02-15 18:39] LABS: Microscopic, Urine URINE MICROSCOPIC (MICROSCOPIC)
[2021-02-15 18:42] LABS: Appearance,Urine CLOUDY (Clear); Bilirubin,Urine Negative (Negative); Blood, Urine 3+ (Negative); Color,Urine YELLOW (Yellow); Glucose,Urine (UA) Negative (Negative); Ketones,Urine Negative (Negative); Leukocyte Esterase,Urine Negative (Negative); Nitrate,Urine Negative (Negative); Protein,Urine Negative (Negative); Specific Gravity, Urine 1.025 (1.005-1.030); Urobilinogen,Urine 0.2 EU/dl (0.2)
[2021-02-15 18:43] LABS: Basophils # 0.1 K/mm3 (0-0.2); Basophils % 0.6 % (0.1-2.0); Eosinophils # 0.2 K/mm3 (0.0-0.4); Eosinophils % 1.8 % (0.1-12.0); Hematocrit 44.7 % (37.0-47.0); Hemoglobin 14.6 g/dL (12.2-16.2); Lymphocytes # 1.8 K/mm3 (0.7-4.5); Lymphocytes % 18.3 % (10-50); Mean Corpuscular HGB Conc 32.7 g/dL (31.8-35.4); Mean Corpuscular Hemoglobin 28.4 pg (27.0-31.2); Mean Corpuscular Volume 86.7 fl (81-99); Mean Platelet Volume 7.4 fl (7.4-10.4); Monocytes # 0.4 K/mm3 (0.1-1.0); Monocytes % 4.4 % (1.7-9.3); Neutrophils # 7.2 K/mm3 (1.8-7.8); Neutrophils % 74.8 % (37.0-80.0); Platelet Count 536 K/mm3 (142-424); Red Blood Count 5.16 M/mm3 (4.20-5.40); Red Cell Distribution Width 13.2 % (11.5-17.5); White Blood Count 9.7 K/mm3 (4.8-10.8)
[2021-02-15 18:47] LABS: Coronavirus 19, PCR Not Detected (NotDetected); Influenza A, PCR Not Detected (NotDetected); Influenza B, PCR Not Detected (NotDetected)
[2021-02-15 18:57] LABS: Chloride 103 mmol/L (98-107); HCG Qualitative, Serum Negative (Negative); Potassium 3.7 mmoL/L (3.5-5.1); Sodium 139 mmol/L (136-145)
[2021-02-15 18:59] LABS: Alanine Aminotransferase 36 U/L (12-78); Aspartate Amino Transferase 33 U/L (14-36); Blood Urea Nitrogen 6 mg/dl (7-17); Creatinine Clearance Estimated 127 mL/min (50-200); Estimated Glomerular Filt Rate 125 ml/min (>60); GFR (African American) 151 ML/MIN (>60); Lipase 45 U/L (23-300)
[2021-02-15 19:00] LABS: Albumin Level 4.4 g/dl (3.5-5.0); Albumin/Globulin Ratio 1.3 (1.1-1.8); Alkaline Phosphatase 76 U/L (38-126); Anion Gap 13.7 mEq/L (5-15); Calcium 9.2 mg/dl (8.4-10.2); Carbon Dioxide 26 mmol/L (22.0-30.0); Globulin 3.3 g/dL (1.3-3.2); Glucose 114 mg/dl (74-100); Total Protein,Serum 7.7 g/dl (6.3-8.2)
[2021-02-15 19:01] LABS: Bilirubin,Total < 0.1 mg/dl (0.2-1.3)
[2021-02-15 19:18] LABS: Bacteria,Urine 4+ /lpf
[2021-02-15 19:38] VITALS: BP 110/49; PULSE 78; O2SAT 95
[2021-02-15 20:13] LABS: Lactic Acid 1.1 mmol/L (0.7-2.1)
[2021-02-15 21:28] VITALS: BP 110/49; PULSE 78; RESP 16; TEMP 36.8; O2SAT 94
== END 2021-02-15 21:37 | disposition home or self-care (01) ==
PROVIDERS: Emergency Provider Emergency Medicine; PCP Emergency Medicine
DX: N30.01 Acute cystitis with hematuria (principal); M79.7 Fibromyalgia; F41.8 Other specified anxiety disorders; F17.290 Nicotine dependence, other tobacco product, uncomplicated
CPT/HCPCS: 80053; 81001; 83605; 83690; 84703; 85025; 87086; 96365; 99283; C9803; J2405; U0003; U0005

== ENCOUNTER → 2021-02-23 08:24 | Outpatient (CLI) | payer OTHER, SELFPAY ==
--- NOTE | 2021-02-23 08:25 | US_ITS ---
PROCEDURE: US GALLBLADDER CLINICAL INDICATION: abominal pain COMPARISON: No exams were available for comparison FINDINGS: Pancreas: Unremarkable/Not well seen Liver: Unremarkable. There is appropriate direction of blood flow within a non dilated portal vein. Right kidney: Unremarkable appearing. No hydronephrosis. Gallbladder: No stones are evident. There is no gallbladder wall thickening. Common duct is normal in diameter. IMPRESSION: Negative gallbladder ultrasound. No stones evident. Dictated by: Piter Morrow MD 02/23/2021 17:32 Piter Morrow MD in OV 02/23/2021 17:32
== END ==
PROVIDERS: PCP Emergency Medicine; Visit Provider Emergency Medicine
DX: R10.9 Unspecified abdominal pain (principal)
CPT/HCPCS: 76705

== ENCOUNTER 2021-03-07 10:13 | Emergency (ER) | payer OTHER, SELFPAY ==
[2021-03-07 11:26] VITALS: BP 141/76; PULSE 102; RESP 18; TEMP 37; O2SAT 95; BMI 44.6
[2021-03-07 11:45] LABS: UTC Strep Screen (Rapid) Negative (Negative)
--- NOTE | 2021-03-07 11:46 | HMH.EDUTC ---
[facility] [place] Clinical Impression: Otitis externa Qualifiers: Otitis externa type: unspecified type Chronicity: acute Laterality: left Qualified Code(s): H60.502 - Unspecified acute noninfective otitis externa, left ear Disposition: Home, Self-Care Condition on Discharge: Good Instructions: DI for Otitis Externa Additional Instructions: follow up with ent call pcp in am for appointment for referral if symptoms worsen return or be seen in ed Prescriptions: cephALEXin [Cephalexin 500mg Tab] 500 mg PO BID 7 Days #14 tablet methylPREDNISolone [Medrol 4mg tab] 4 mg PO DIRECTED #21 tab Transmission Status: Pending to [facility] Neomycin/Polymyxin B/Hydrocort [Hyazavcr-Qepgyblcp-Jj Ear Soln] 3 drops OT TID 14 Days #10 ml Transmission Status: Pending to [facility] Cefdinir [Omnicef 300mg Capsule] 300 mg PO BID #20 cap Transmission Status: Pending to [facility] Referrals: Kadeem Guerrero MD [Primary Care Provider] - Time of Disposition: 11:58 Medical Decision Making - Pal Inquiry Pt receiving controlled substance: No Vital Signs: 03/07/21 11:26 Temperature 98.6 F Temperature Source Oral Pulse Rate [Right Radial] 102 H Respiratory Rate 18 Blood Pressure [Right Arm] 141/76 H Blood Pressure Mean [Right Arm] 97 Blood Pressure Source [Right Arm] Automatic Cuff Blood Pressure Position [Right Arm] Sitting 02 Sat by Pulse Oximetry 95 Oxygen Delivery Method Room Air - Lab Data Lab Results 03/07/21 11:32: Strep Scn Rapid Clinic Negative Orders (Tests/Meds): ORDERS Category Date Time Status Strep Screen Confirmation Stat Micro 03/07/21 11:32 Received [facility] [place] HPI - General Chief complaint: Urgent Treatment Center Stated complaint: left ear pain Time Seen by Provider: 03/07/21 11:46 Mode of Arrival: Ambulatory Source of Information: Spouse Limitations: No Limitations Description of Symptoms (Recalled from Triage Doc. by RN): Pt stated that she started with ear pain yesterday and it radiates from her ear down to her jaw. She cannot close her mouth. HEENT Symptoms (Recalled from RN notes): Yes Resp Symptoms (Recalled from RN notes): No Skin Symptoms (Recalled from RN notes): No MS Symptoms (Recalled from RN notes): No Functional Status (Recalled from RN notes): n/a - History of Present Illness Provider Complaint: 20 yr old female presents for left ear pain that started yesterday with pain radiating down jaw. - Related Data Home Medications Medication Instructions Recorded Confirmed albuterol sulfate 90 mcg/actuation 1 puff INHALATION DAILY g 01/04/19 02/16/21 aerosol inhaler Previous Rx's Medication Instructions Recorded budesonide-formoterol HFA 80 2 puff INHALATION BID #10.2 g 07/20/20 mcg-4.5 mcg/actuation aerosol inhaler cetirizine 10 mg tablet 10 mg PO DAILY #30 tab 12/14/20 vits no.126-ferrous fum 1 tab PO DAILY #90 tab 12/24/20 28 mg iron-folic acid 800 mcg tablet gabapentin 800 mg tablet 800 mg PO QID #120 tab 12/25/20 Cefdinir [Omnicef 300mg Capsule] 300 mg PO BID 7 Days #14 cap 02/15/21 clomiphene citrate 50 mg tablet 50 mg PO DAILY 5 Days #5 tab 02/15/21 buspirone 10 mg tablet 10 mg PO BID #60 tab 02/16/21 fluoxetine 20 mg capsule 20 mg PO DAILY #30 cap 02/16/21 hydroxyzine pamoate 25 mg capsule 25 mg PO TID PRN #90 cap 02/16/21 olanzapine 10 mg tablet 10 mg PO HS #30 tab 02/16/21 Cefdinir [Omnicef 300mg Capsule] 300 mg PO BID #20 cap 03/07/21 Neomycin/Polymyxin B/Hydrocort 3 drops OT TID 14 Days #10 ml 03/07/21 [Doxsxzux-Uytouxhgh-Kl Ear Soln] cephALEXin [Cephalexin 500mg Tab] 500 mg PO BID 7 Days #14 tablet 03/07/21 methylPREDNISolone [Medrol 4mg 4 mg PO DIRECTED #21 tab 03/07/21 tab] Allergies Allergy/AdvReac Type Severity Reaction Status Date / Time No Known Allergies Allergy Verified 03/07/21 11:32 - Worker's Comp Is this a Worker's Comp case?: No [facility] History - Hepatitis A
[2021-03-07 12:17] VITALS: BP 141/76; PULSE 102; RESP 18; TEMP 37; O2SAT 95
== END 2021-03-07 12:20 | disposition home or self-care (01) ==
PROVIDERS: Emergency Provider Nurse Practitioner Family; PCP Emergency Medicine
DX: H60.502 Unspecified acute noninfective otitis externa, left ear (principal); F41.8 Other specified anxiety disorders; J45.909 Unspecified asthma, uncomplicated; F17.210 Nicotine dependence, cigarettes, uncomplicated
CPT/HCPCS: 87880; 99202; G0463

== ENCOUNTER 2021-03-16 12:50 | Emergency (ER) | payer OTHER, SELFPAY ==
[2021-03-16 15:00] VITALS: BP 152/100; PULSE 102; RESP 20; TEMP 37.8; O2SAT 97; BMI 44.9
--- NOTE | 2021-03-16 15:44 | HMH.EDUTC ---
[facility] [place] Clinical Impression: Otitis externa Qualifiers: Otitis externa type: unspecified type Chronicity: unspecified Laterality: left Qualified Code(s): H60.92 - Unspecified otitis externa, left ear Disposition: Home, Self-Care Condition on Discharge: Good Instructions: Otitis Externa, DI for Otitis Externa, Ofloxacin Otic Additional Instructions: Stop taking the drops you was previously prescribed if they are causing pain and start the Ofloxacin today Follow up with ENT if symptoms persist for further treatment and evaluation Return if needed Over the counter Motrin and Tylenol for pain Follow up with Family Doctor for further evaluation You were tested for today for COVID19 your test result should be back in the next 24-48 hours, you may check your results on the [facility] portal if you have trouble logging on you may call You was given a handout with instructions for Self Quarantine and Self isolation for while you wait on test results and what to do if they are positive If you are positive the Health Dept will be contacting you also Make sure to take your Vitamins Vit. C Vit D and Zinc if you can take them Prescriptions: Ofloxacin [Floxin 0.3% OTIC Solution 5mL] 5 drops EAR-LEFT BID 7 Days #5 ml Transmission Status: Pending to [facility] Referrals: Kadeem Guerrero MD [Primary Care Provider] - As needed Andrew Anaya MD [Physician] - Harjinder Graham MD [Physician] - Time of Disposition: 15:55 Medical Decision Making - Pal Inquiry Pt receiving controlled substance: No Pal was queried for this patient: No Vital Signs: 03/16/21 15:00 Temperature 100.1 F H Temperature Source Oral Pulse Rate [Left Brachial] 102 H Respiratory Rate 20 Blood Pressure [Left Arm] 152/100 H Blood Pressure Mean [Left Arm] 117 Blood Pressure Source [Left Arm] Automatic Cuff Blood Pressure Position [Left Arm] Sitting 02 Sat by Pulse Oximetry 97 Oxygen Delivery Method Room Air Orders (Tests/Meds): ORDERS Category Date Time Status Covid-19 Nasal PCR ([facility]) Routine Lab 03/16/21 15:54 Ordered Medical Decision Narrative: Patient reports that she was prescribed ear drops but when she uses them they cause the pain in her left ear to worsen so today she came in to get checked and see if she could get the drops changed Patient has low grade fever discussed testing for COVID and she agreed [facility] [place] HPI - General Stated complaint: left ear swelling, difficulty hearing Time Seen by Provider: 03/16/21 15:44 Mode of Arrival: Ambulatory Source of Information: Patient Limitations: No Limitations Description of Symptoms (Recalled from Triage Doc. by RN): PATIENT C/O EAR INFECTION SINCE . STATES SHE WAS SEEN FOR IT BUT STATES IT IS NOT BETTER; EAR DROPS PRESCRIBED MAKES PAIN WORSE HEENT Symptoms (Recalled from RN notes): Yes Resp Symptoms (Recalled from RN notes): No Skin Symptoms (Recalled from RN notes): No MS Symptoms (Recalled from RN notes): No Functional Status (Recalled from RN notes): WNL - History of Present Illness Provider Complaint: Patient state that she has been having ear problems States that she was seen and still currently taking the oral medication and when she uses the drops in her ear it causes her pain to be worse so she came in to get checked to see if her ear infection was worse - Related Data Home Medications Medication Instructions Recorded Confirmed albuterol sulfate 90 mcg/actuation 1 puff INHALATION DAILY g 01/04/19 02/16/21 aerosol inhaler Previous Rx's Medication Instructions Recorded budesonide-formoterol HFA 80 2 puff INHALATION BID #10.2 g 07/20/20 mcg-4.5 mcg/actuation aerosol inhaler cetirizine 10 mg tablet 10 mg PO DAILY #30 tab 12/14/20 vits no.126-ferrous fum 1 tab PO DAILY #90 tab 12/24/20 28 mg iron-folic acid 800 mcg tablet gabapentin 800 mg tablet 800 mg PO QID #120 tab 12/25/20 Cefdinir [Omnicef 300mg Capsule] 300
[2021-03-16 15:56] VITALS: BP 152/100; PULSE 102; RESP 20; TEMP 37.8; O2SAT 97
== END 2021-03-16 16:06 | disposition home or self-care (01) ==
PROVIDERS: Emergency Provider Nurse Practitioner; PCP Emergency Medicine
DX: H60.92 Unspecified otitis externa, left ear (principal); F41.8 Other specified anxiety disorders; J45.909 Unspecified asthma, uncomplicated; M79.7 Fibromyalgia; F17.210 Nicotine dependence, cigarettes, uncomplicated
CPT/HCPCS: 99202; C9803; G0463; U0003; U0005

== ENCOUNTER → 2021-03-31 17:10 | Outpatient (CLI) | payer OTHER, SELFPAY ==
[2021-04-02 08:52] LABS: Progesterone 16.4 ng/mL (.)
== END ==
PROVIDERS: Visit Provider Obstetrics & Gynecology
DX: N83.9 Noninflammatory disorder of ovary, fallopian tube and broad ligament, unspecified (principal)
CPT/HCPCS: 36415; 84144

== ENCOUNTER → 2021-04-08 14:38 | Outpatient (CLI) | payer OTHER, SELFPAY ==
[2021-04-08 20:15] LABS: HCG,Quantitative < 2 mIU/ml (0-5.42)
== END ==
PROVIDERS: PCP Emergency Medicine; Visit Provider Obstetrics & Gynecology
DX: N97.9 Female infertility, unspecified (principal)
CPT/HCPCS: 36415; 84702

== ENCOUNTER → 2021-05-03 11:12 | Outpatient (POV) | payer OTHER, SELFPAY ==
[2021-05-03 11:35] VITALS: BP 151/84; PULSE 110; RESP 18; O2SAT 96; BMI 48.4
--- NOTE | 2021-05-03 13:36 | HMH.PAINSOAP ---
[facility] Pain Management SOAP Note Subjective:: This patient is a very pleasant 21-year-old white female who presents today for follow-up. She is currently being treated for left-sided sacroiliitis. She has tried and failed conservative treatment and oral pain medications and home stretching program for greater than 6 weeks. She has previously undergone a left-sided SI joint injection in the past approximately 2 to 3 years ago and she states it provided her significant pain relief but states that the procedure was very painful and therefore she has been trying to hold off for as long as possible. However, she states that the pain is very severe at this time and she is requesting a repeat injection. She is currently taking gabapentin 800 mg 4 times a day that is prescribed by Cesar. She rates her pain today as a 7 out of 10. Objective:: General: Alert and oriented x3, no acute distress, pleasant and cooperative Lungs: Resps E/U, symmetric chest expansion Eyes: PERRL Musculoskeletal: limited flexion and extension of the lumbar spine secondary to pain. Deep tendon reflexes were normal in bilateral lower extremities. Motor exam was grossly intact in the bilateral lower extremities, antalgic gait noted. Tenderness to palpation of the left SI joint. Positive Gaenslen's on the left, positive Arsen's on the left, positive SI joint compression on the left. Neurological: Speech is clear, reclamation supervisor equal, no gross sensory deficits Assessment:: Left-sided sacroiliitis, left-sided hip pain, left-sided low back pain Plan:: With the patient that we will schedule her for repeat left-sided SI joint injection under fluoroscopy. The above procedures to be performed in the clinic in the next 2 to 3 weeks. [facility] #[id number] reviewed and appropriate. [facility] History Medical History: Reports:: Anxiety, Asthma, Depression, Hypertension, Urinary Tract Infection Denies:: Cancer, Diabetes Mellitus Type 1, Diabetes Mellitus Type 2, Hyperlipidemia, Internal Pacemaker, MRSA, Seizures *Have you ever received a pneumonia vaccine?: No *Have you received a flu vaccine this season?: No Other Medical History: Reports: Fibromyalgia, Other. Denies: Blood Transfusion Reaction Laterality Cases: Right: Other, Bilateral: Myringotomy (Ear Tubes), Tonsillectomy Other Surgeries: Yes: Colonoscopy, Other. No: , Pacemaker Amputation: No Fractures: No - *Social History Smoking Status: Current every day smoker Tobacco Type: e-cigarettes # Packs/Day (cigarettes): 1 Alcohol Intake: never Alcohol Intake Frequency:: holidays/special occasions only Substance Use Type: marijuana *Occupational Status:: unemployed Housing: house Household Members: other *Travel in the last 8 weeks: None - Psychiatric History Pschychiatric History:: Reports:: Anxiety, Bipolar Disorder, Depression Family Hx:: No significant family history
== END ==
PROVIDERS: Visit Provider Anesthesiology Pain Medicine
DX: M46.1 Sacroiliitis, not elsewhere classified (principal); M54.50 Low back pain, unspecified
CPT/HCPCS: 99202; G0463

== ENCOUNTER 2021-05-14 12:43 | Day surgery (SDC) | payer OTHER, SELFPAY ==
[2021-05-14 13:00] VITALS: BP 112/79; BP 120/74; BP 121/70; PULSE 107; PULSE 114; PULSE 122; RESP 18; RESP 20; TEMP 37.8; O2SAT 94; O2SAT 95; BMI 47.7
--- NOTE | 2021-05-14 13:25 | P.PCN_ITS ---
- Procedure Date: 05/14/21 Time: 13:25 Anesthesiologist:: Nitin Schofield MD Complications:: None Pre-procedure Diagnosis:: Sacroiliitis Post-procedure Diagnosis:: Same Indications for Procedure:: Patient is a pleasant 21-year-old white female who we are treating for left- sided hip pain. She is tender over her left SI joint. She has a positive Arsen's test on left side. She has a positive Anna test on the left side. She is positive SI joint compression test on left side. We will do left SI joint injection under fluoroscopy today. Procedure Details:: Left SI joint injection under fluoroscopy Informed consent was obtained and the risks and benefits of the procedure was explained to the patient. Patient was taken to the procedure room. Patient was placed prone on the procedure table. The left hip was prepped using ChloraPrep. The skin and subcutaneous tissues were anesthetized using lidocaine. I placed a 22-gauge spinal needle into the inferior aspect of the left SI joint. Needle placement was confirmed with dye. After this we injected 5 mL bupivacaine 0.25% and Depo-Medrol 40 mg into the left SI joint. The patient tolerated the proc edure well with no complication. Plan and Disposition:: We will follow-up with her 2 weeks. Will reevaluate her symptoms at that time.
[2021-05-14 13:27] VITALS: BP 118/85; PULSE 108; O2SAT 93
== END 2021-05-14 13:27 | disposition home or self-care (01) ==
LOC: SC.PAINP 12:44
PROVIDERS: PCP Emergency Medicine; Visit Provider Anesthesiology
DX: M46.1 Sacroiliitis, not elsewhere classified (principal); K21.9 Gastro-esophageal reflux disease without esophagitis; F41.9 Anxiety disorder, unspecified; F32.A Depression, unspecified; J45.909 Unspecified asthma, uncomplicated; Z72.0 Tobacco use
CPT/HCPCS: 27096; G0260; J1040; Q9966

== ENCOUNTER 2021-05-20 09:23 | Emergency (ER) | payer OTHER, SELFPAY ==
[2021-05-20 10:00] VITALS: BP 136/76; PULSE 105; RESP 22; TEMP 37.2; O2SAT 97; BMI 46.5
[2021-05-20 10:21] LABS: UTC Strep Screen (Rapid) Negative (Negative)
--- NOTE | 2021-05-20 10:39 | HMH.EDUTC ---
[facility] [place] Disposition Clinical Impression: URI (upper respiratory infection) Qualifiers: URI type: unspecified URI Qualified Code(s): J06.9 - Acute upper respiratory infection, unspecified Disposition: Home, Self-Care Condition on Discharge: Good Instructions: Acute Bronchitis Additional Instructions: ? Start antibiotic today. Be sure to complete entire prescription even if feeling better ? Monitor temp. Tylenol every 4 hours as needed and / or ibuprofen every 6 hours as needed ( As long as your primary care physician has told you that it ok to take both. For fever/aches/pains ER if no less than 101 despite Tylenol or Motrin ? Humidifier/vaporizer or hot steamy shower ? Inhaler every 4-6 hours as needed like we discussed. If unsure how to use it, ask pharmacist to demonstrate how. Should help open airways and improve cough, wheezing, and shortness of breath ? Mucinex as prescribed Be sure to drink lots of water. Insurance may not cover a prescriptions for mucinex. Might be cheaper to get 400mg tablets and take 2 tablet in the morning, mid-day and evening with lots of water. *Start steroid today. Helps with inflammation therefore, cough and wheezing. Follow directions on the package. Reviewed side effects. Patient reports taking them before. Follow up IMMEDIATELY for new or worsening of symptoms OR no noticeable improvement over the next 48-72 hours. 911 immediately for any life threatening symptoms such as chest pain or difficulty breathing Prescriptions: methylPREDNISolone [Medrol 4mg tab] 4 mg PO DIRECTED #21 tab Transmission Status: Pending to [facility] guaiFENesin [Mucinex 600mg tablet] 1 - 2 tab PO Q12H #20 tab Transmission Status: Pending to [facility] Cefdinir [Omnicef 300mg Capsule] 300 mg PO BID #20 cap Transmission Status: Pending to [facility] Referrals: Kadeem Guerrero MD [Primary Care Provider] - Medical Decision Making - Pal Inquiry Pt receiving controlled substance: No Pal was queried for this patient: No Vital Signs: 05/20/21 10:00 Temperature 98.9 F Temperature Source Oral Pulse Rate [Right Brachial] 105 H Respiratory Rate 22 Blood Pressure [Right Arm] 136/76 Blood Pressure Mean [Right Arm] 96 Blood Pressure Source [Right Arm] Automatic Cuff Blood Pressure Position [Right Arm] Sitting 02 Sat by Pulse Oximetry 97 Oxygen Delivery Method Room Air - Lab Data Lab Results 05/20/21 10:10: Strep Scn Rapid Clinic Negative Orders (Tests/Meds): ORDERS Category Date Time Status Strep Screen Confirmation Stat Micro 05/20/21 10:10 Received Medical Decision Narrative: Patient states that she has taken Cefdnir and medrol in the past without reactions or complications [facility] [place] HPI - General Stated complaint: cough, sore throat, runny nose, fever Time Seen by Provider: 05/20/21 10:40 Mode of Arrival: Ambulatory Source of Information: Patient Limitations: No Limitations Description of Symptoms (Recalled from Triage Doc. by RN): PATIENT C/O COUGH, RUNNY NOSE, SORE THROAT, AND FEVER HEENT Symptoms (Recalled from RN notes): Yes Resp Symptoms (Recalled from RN notes): Yes Skin Symptoms (Recalled from RN notes): No MS Symptoms (Recalled from RN notes): No Functional Status (Recalled from RN notes): WNL - History of Present Illness Provider Complaint: Patient states that she has not felt well for a couple of days having sore throat, cough and sinus congestion States that she feels like it is trying to move into her chest States gets bronchitis sometimes and feels like it is having sinus congestion and pressure - Related Data Home Medications Medication Instructions Recorded Confirmed Budesonide/Formoterol Fumarate 2 puff INHALATION BID 05/14/21 05/14/21 [Budesonide-Formoterol 80-4.5] Cetirizine HCl 10 mg PO DAILY 05/14/21 05/14/21 Fluoxetine HCl 40 mg PO DAILY 05/14/21 05/14/21 Fluticasone Propionate 2 spray INTRANASAL DAILY 05/14/21 05/14/21
[2021-05-20 10:40] VITALS: BP 136/76; PULSE 105; RESP 22; TEMP 37.2; O2SAT 97
== END 2021-05-20 10:51 | disposition home or self-care (01) ==
PROVIDERS: Emergency Provider Nurse Practitioner; PCP Emergency Medicine
DX: J06.9 Acute upper respiratory infection, unspecified (principal); J02.9 Acute pharyngitis, unspecified; R50.9 Fever, unspecified; K58.9 Irritable bowel syndrome, unspecified; R09.81 Nasal congestion; I10 Essential (primary) hypertension; J45.909 Unspecified asthma, uncomplicated; M79.7 Fibromyalgia; E66.9 Obesity, unspecified; F31.9 Bipolar disorder, unspecified; F41.9 Anxiety disorder, unspecified; F17.210 Nicotine dependence, cigarettes, uncomplicated; Z68.42 Body mass index [BMI] 45.0-49.9, adult; Z87.440 Personal history of urinary (tract) infections
CPT/HCPCS: 87880; 99213; G0463

== ENCOUNTER → 2021-05-22 12:24 | Outpatient (CLI) | payer OTHER, SELFPAY ==
[2021-05-22 14:04] LABS: Basophils # 0.1 K/mm3 (0-0.2); Basophils % 0.8 % (0.1-2.0); Eosinophils % 0.3 % (0.1-12.0); Hematocrit 47.3 % (37.0-47.0); Hemoglobin 14.8 g/dL (12.2-16.2); Lymphocytes # 3.2 K/mm3 (0.7-4.5); Lymphocytes % 18.8 % (10-50); Mean Corpuscular HGB Conc 31.3 g/dL (31.8-35.4); Mean Corpuscular Hemoglobin 27.3 pg (27.0-31.2); Mean Corpuscular Volume 87.3 fl (81-99); Mean Platelet Volume 8.1 fl (7.4-10.4); Monocytes # 0.8 K/mm3 (0.1-1.0); Monocytes % 4.8 % (1.7-9.3); Neutrophils # 12.6 K/mm3 (1.8-7.8); Neutrophils % 75.2 % (37.0-80.0); Platelet Count 707 K/mm3 (142-424); Red Blood Count 5.42 M/mm3 (4.20-5.40); Red Cell Distribution Width 14.3 % (11.5-17.5); White Blood Count 16.8 K/mm3 (4.8-10.8)
[2021-05-22 15:50] LABS: Urine Pregnancy, HCG Qual. Negative (Negative)
[2021-05-22 15:52] LABS: Anion Gap 11.1 mEq/L (5-15); Blood Urea Nitrogen 13 mg/dl (7-17); Calcium 8.9 mg/dl (8.4-10.2); Carbon Dioxide 29 mmol/L (22.0-30.0); Chloride 103 mmol/L (98-107); Estimated Glomerular Filt Rate 153 ml/min (>60); GFR (African American) 185 ML/MIN (>60); Glucose 92 mg/dl (74-100); Potassium 4.1 mmoL/L (3.5-5.1); Sodium 139 mmol/L (136-145)
== END ==
PROVIDERS: Visit Provider Otolaryngology
DX: Z01.812 Encounter for preprocedural laboratory examination (principal); Z11.52 Encounter for screening for COVID-19
CPT/HCPCS: 36415; 80048; 81025; 85025; C9803; U0003; U0005

== ENCOUNTER 2021-05-25 07:07 | Day surgery (SDC) | payer OTHER, SELFPAY ==
[2021-05-20 13:55] VITALS: BMI 46.4
[2021-05-25] VITALS (10 sets, daily range): BP systolic 121–136; BP diastolic 64–79; PULSE 89–100; RESP 16–20; TEMP 36.6–37; O2SAT 93–96
--- NOTE | 2021-05-25 09:14 | P.OP_ITS ---
Date of procedure: 05/25/21 Pre-op Diagnosis:: Chronic serous otitis media Post-op Diagnosis:: Chronic serous otitis media Procedure performed:: Bilateral tympanostomy and tube placement Surgeon:: Harjinder Graham MD OPEN HEARTH DOOR LINER:: Nabil Li Anesthesia: GETNicki Estimated blood loss (mL): 0 Operative findings:: Retracted tympanic membranes bilaterally Operative note:: The patient was brought to the operating room and after adequate general anesthesia the ears were draped in the usual sterile fashion and operating microscope employed to visualize the tympanic membranes. Anterior inferior quadrant tympanostomies were made and suction employed to clear the middle ear space of effusion and this was done bilaterally. Cagle T tubes were then placed and Ciprodex drops applied and the procedure concluded. All counts correct. Blood loss minimal. Patient was sent to recovery in stable addition. Condition: stable Disposition: PACU Complications:: None
--- NOTE | 2021-05-25 09:20 | P.PN_ITS ---
[facility] Anesthesia Checklist - Patient Identification Patient Identification: Arm Band - Structural Data Admitted From: Home Planned Operative Procedure/s: BMT Consent for Planned Operative Procedure(s) Verified: Yes Verified Documents: Surgical Consent, History and Physical - NPO Status Verified Time NPO: 00:00 - Additional verifications Anesthesia Reactions: No Hx Blood Transfusions: No Blood Transfusion Reaction: No - Airway Assessment C-Spine Mobility Assessed: Yes (mp2) TMJ Mobility Assessed: Yes Dentition: Good Dentition - Neurological Assessment Level of Consciousness: Awake, Alert - Anesthesia Plan Anesthesia Risk discussed: Yes Anesthesia Plan: Verified ASA Class: III Anesthesia Type: General [facility] History I have reviewed the patient's past medical history: Yes Medical History: Reports:: Anxiety, Asthma, Depression, Hypertension, Urinary Tract Infection Denies:: Cancer, Diabetes Mellitus Type 1, Diabetes Mellitus Type 2, Hyperlipidemia, Internal Pacemaker, MRSA, Seizures *Have you ever received a pneumonia vaccine?: No *Have you received a flu vaccine this season?: No Other Medical History: Reports: Fibromyalgia, Other. Denies: Blood Transfusion Reaction Anesthesia experience/problems:: nac Laterality Cases: Right: Other, Bilateral: Myringotomy (Ear Tubes), Tonsillectomy Other Surgeries: Yes: Colonoscopy, Other. No: , Pacemaker Amputation: No Fractures: No - *Social History Last grade of school completed: 11th or 12th Smoking Status: Current every day smoker Tobacco Type: cigarettes # Packs/Day (cigarettes): 1 Alcohol Intake: never Alcohol Intake Frequency:: holidays/special occasions only Substance Use Type: marijuana *Occupational Status:: employed Housing: house Household Members: other *Travel in the last 8 weeks: None - Psychiatric History Pschychiatric History:: Reports:: Anxiety, Bipolar Disorder, Depression Family Hx:: No significant family history
--- NOTE | 2021-05-25 09:21 | HMH.ANESI ---
[facility] Anesthesia Record Part I Intake, IV Amount: 600 Estimated blood loss (mL): 0 Urine output (mL): 0 Blood Pressure: 133/64 SaO2: 93 Pulse Rate: 96 Respiratory Rate: 16 Temperature: 98 F Patient is:: Drowsy, Stable Stable to PACU at:: 09:10
--- NOTE | 2021-05-25 09:54 | SUR.PHASEI ---
0949- detailed report called to dolores williamson in post op at this time, pt left under her care in stable condition.
--- NOTE | 2021-05-25 12:44 | P.PN_ITS ---
[facility] Anesthesia Record Part II Discharge Time: 09:50 Destination: Surgical Day Care (OP Surgery) PACU nurse assessment reviewed?: Yes Patient Condition:: Good Anesthesia Complications:: None Swallowing reflex intact?: Yes Cyanosis?: No Blood Pressure: 122/74 Pulse Rate: 89 Temperature: 97.9 F Mental Status: Alert & Oriented Pain level:: 0 Nausea and/or vomitting:: None Intake, IV Amount: 0
== END 2021-05-25 10:22 | disposition home or self-care (01) ==
LOC: OR 07:08
PROVIDERS: PCP Emergency Medicine; Visit Provider Otolaryngology
PROC: (CPT 69436; principal; 2021-05-25 08:30)
DX: H65.23 Chronic serous otitis media, bilateral (principal); F41.9 Anxiety disorder, unspecified; J45.909 Unspecified asthma, uncomplicated; F32.A Depression, unspecified; I10 Essential (primary) hypertension; M79.7 Fibromyalgia; Z72.0 Tobacco use; Z79.899 Other long term (current) drug therapy
CPT/HCPCS: 69436; J2405

== ENCOUNTER → 2021-06-10 13:19 | Outpatient (POV) | payer OTHER, SELFPAY ==
[2021-06-10 13:25] VITALS: BP 148/96; PULSE 118; RESP 18; TEMP 37.2; O2SAT 95; BMI 45.7
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
== END ==
PROVIDERS: Visit Provider Student in an Organized Health Care Education/Training Program
DX: M46.1 Sacroiliitis, not elsewhere classified (principal); M54.9 Dorsalgia, unspecified; G89.29 Other chronic pain
CPT/HCPCS: 99212; G0463

== ENCOUNTER 2021-06-21 11:29 | Emergency (ER) | payer OTHER, SELFPAY ==
--- NOTE | 2021-06-21 11:47 | XR_ITS ---
FINAL REPORT CLINICAL HISTORY: PAIN FINDINGS: 3 views of the right ribs were obtained. There are no rib fractures. There is no pleural fluid collection or pneumothorax. A single view of the chest demonstrates a calcified granuloma in the left upper lobe. There is a calcified prevascular lymph node. IMPRESSION: Unremarkable right rib series. Reviewed, Interpreted and Dictated by Gorge Jasmine MD Transcribed by Alphonse Eddy Authenticated by Gorge Jasmine MD on 06/21/2021 01:03:[address] [facility]
[2021-06-21 12:00] VITALS: BP 149/95; PULSE 102; RESP 18; TEMP 37.1; O2SAT 97; BMI 44.9
--- NOTE | 2021-06-21 12:28 | HMH.EDUTC ---
[place] Disposition Clinical Impression: Chest wall pain Disposition: Home, Self-Care Condition on Discharge: Good Instructions: DI for Pleurisy, DI for Rib Contusion Additional Instructions: Go home and rest. It would be best if you rested tomorrow too. No heavy lifting. No twisting. Take the oral medications as directed. Follow up with your regular doctor. GO TO THE ER FOR ANY WORSENING SYMPTOMS OR CONCERN, ESPECIALLY BOWEL OR BLADDER ISSUES, SADDLE AREA NUMBNESS, FEVER, ETC Prescriptions: methylPREDNISolone [Medrol] 4 mg PO DIRECTED 6 Days #21 packet Transmission Status: Received by [facility] Referrals: Kadeem Guerrero MD [Primary Care Provider] - Time of Disposition: 12:56 Medical Decision Making - Medical Records Medical records reviewed: No: I reviewed the patient's medical records. - Pal Inquiry Pt receiving controlled substance: No Vital Signs: 06/21/21 12:00 06/21/21 13:02 Temperature 98.7 F 98.7 F Temperature Source Oral Pulse Rate 102 H Pulse Rate [Right Brachial] 102 H Respiratory Rate 18 18 Blood Pressure 149/95 H Blood Pressure [Right Arm] 149/95 H Blood Pressure Mean [Right Arm] 113 Blood Pressure Source [Right Arm] Automatic Cuff Blood Pressure Position [Right Arm] Sitting 02 Sat by Pulse Oximetry 97 Oxygen Delivery Method Room Air - Lab Data Lab results reviewed: Yes: I reviewed the patient's lab results. [place] HPI - General Stated complaint: right side pain, soa Time Seen by Provider: 06/21/21 12:29 Mode of Arrival: Ambulatory Source of Information: Patient Limitations: No Limitations Description of Symptoms (Recalled from Triage Doc. by RN): PATIENT C/O RIGHT SIDE RIB PAIN SINCE SHE WOKE UP THIS MORNING. HEENT Symptoms (Recalled from RN notes): No Resp Symptoms (Recalled from RN notes): No Skin Symptoms (Recalled from RN notes): No MS Symptoms (Recalled from RN notes): Yes Functional Status (Recalled from RN notes): WNL - History of Present Illness Provider Complaint: She c/o left rib pain for the past 1 day. She denies any known injury. She denies any shortness of breath or other complaints. She has not been sick or congested recently. - Related Data Home Medications Medication Instructions Recorded Confirmed Budesonide/Formoterol Fumarate 2 puff INHALATION BID 05/14/21 06/22/21 [Budesonide-Formoterol 80-4.5] Pantoprazole Sodium 40 mg PO DAILY 05/14/21 06/22/21 clomiPHENE citrate [Clomiphene 50 mg PO DAILY 05/14/21 06/22/21 Citrate] Olanzapine/Samidorphan Malate 1 tab PO DAILY 06/10/21 06/22/21 [Lybalvi] Previous Rx's Medication Instructions Recorded pregabalin 300 mg capsule 300 mg PO BID PRN #60 cap 04/19/21 albuterol sulfate 90 mcg/actuation 1 puff INHALATION DAILY #8.5 g 04/28/21 aerosol inhaler phentermine 37.5 mg tablet 37.5 mg PO DAILY #30 tab 05/21/21 buspirone 10 mg tablet 20 mg PO BID #120 tab 06/09/21 fluoxetine 40 mg capsule 40 mg PO DAILY #30 cap 06/09/21 trazodone 50 mg tablet 50 mg PO QHS PRN #30 tab 06/09/21 methylPREDNISolone [Medrol] 4 mg PO DIRECTED 6 Days #21 06/21/21 packet metformin 500 mg tablet 500 mg PO BID #60 tab 06/22/21 Allergies Allergy/AdvReac Type Severity Reaction Status Date / Time No Known Allergies Allergy Verified 06/22/21 16:24 - Worker's Comp Is this a Worker's Comp case?: No [facility] History - Hepatitis A Screen Drug use history?: No High risk sexual behaviors?: No History of sexually transmitted infection?: No Currently employed?: No Childcare worker?: No Do you have indoor plumbing?: Yes Do you have electricity?: Yes Attestation statement:: This patient has been screened for Hepatitis A risk factors. I have reviewed the patient's past medical history: Yes Medical History: Reports:: Anxiety, Asthma, Depression, Hypertension, Urinary Tract Infection Denies:: Cancer, Diabetes Mellitus Type 1, Diabetes Mellitus Type 2, Hyperlipidemia, Internal
[2021-06-21 13:02] VITALS: BP 149/95; PULSE 102; RESP 18; TEMP 37.1; O2SAT 97
== END 2021-06-21 13:04 | disposition home or self-care (01) ==
PROVIDERS: Emergency Provider Nurse Practitioner Family; PCP Emergency Medicine
DX: R07.89 Other chest pain (principal); R06.02 Shortness of breath; F41.8 Other specified anxiety disorders; I10 Essential (primary) hypertension; Z79.899 Other long term (current) drug therapy
CPT/HCPCS: 71101; 99212; G0463

== ENCOUNTER → 2021-07-01 12:53 | Outpatient (CLI) | payer OTHER, SELFPAY ==
--- NOTE | 2021-07-01 12:56 | MR_ITS ---
FINAL REPORT CLINICAL HISTORY: BACK PAIN. unable to stand for long periods. numbness in rt thigh. bending over bilateral leg numbness. no injury or trauma. COMPARISON: November 29, 2019 FINDINGS: Multiplanar MR imaging of the lumbar spine was performed without contrast. On the sagittal T2-weighted images, disc degeneration is seen at L5-S1. The vertebral alignment is normal. There is no evidence of fracture. The conus has an unremarkable appearance. L1-2: There is no significant canal stenosis or neural foraminal narrowing. L2-3: There is no significant canal stenosis or neural foraminal narrowing. L3-4: There is no significant canal stenosis or neural foraminal narrowing. L4-5: An annular bulge is present. There is a small central disc protrusion. There is no significant canal stenosis or neural foraminal narrowing. L5-S1: There is an annular bulge with facet arthropathy. There is no significant canal stenosis or neural foraminal narrowing. IMPRESSION: Small central disc protrusion at L4-L5 without significant canal stenosis or neural foraminal narrowing. Reviewed, Interpreted and Dictated by Chevy Scott III, MD Transcribed by Alphonse Eddy Authenticated by Chevy Scott III, MD on 07/01/2021 03:00:58 PM [facility]
== END ==
PROVIDERS: PCP Emergency Medicine; Visit Provider Student in an Organized Health Care Education/Training Program
DX: M54.50 Low back pain, unspecified (principal)
CPT/HCPCS: 72148; 76376

== ENCOUNTER 2021-07-02 10:59 | Day surgery (SDC) | payer OTHER, SELFPAY ==
[2021-07-02 11:02] VITALS: BP 172/91; PULSE 120; RESP 22; TEMP 36.8; O2SAT 97; BMI 48.9
[2021-07-02 11:15] VITALS: BP 131/92; PULSE 112; RESP 18; O2SAT 96
[2021-07-02 11:17] VITALS: BP 138/85; PULSE 112; RESP 20; O2SAT 97
--- NOTE | 2021-07-02 11:18 | P.PCN_ITS ---
- Procedure Date: 07/02/21 Time: 11:18 Anesthesiologist:: Andres Nugent CRNA Complications:: None Pre-procedure Diagnosis:: Bilateral sacroiliitis Post-procedure Diagnosis:: Same Indications for Procedure:: This patient is a pleasant 21-year-old who has responded well to SI joint injections on the right in the past. Today she presents for bilateral SI joint injections. She rates her pain 8/10 today. She states the pain increases significantly when walking and or sitting for any length of time. Procedure Details:: Procedure: Bilateral sacroiliac joint injections under fluoroscopy Informed consent was obtained and the risks and benefits of the procedure were explained to the patient.~ The patient was taken to the procedure room and noninvasive monitors were placed including a noninvasive blood pressure cuff and pulse oximeter.~ The patient was placed prone on the procedure table. Both hips were cleansed using Betadine as a cleansing solution. C-arm fluoroscopy was used to view the right sacroiliac joint.~ The skin and subcutaneous tissues were anesthetized using lidocaine 1.5% and a 25-gauge needle.~ After this, a 22-gauge spinal needle was inserted under fluoroscopic guidance into the inferior aspect of the right sacroiliac joint.~ Omnipaque dye was injected and good spread was seen throughout the joint.~ After this, approximately 5 mL of bupivacaine, 0.25% and Depo-Medrol, 40 mg was incrementally injected into the right sacroiliac joint. We then moved to the left sacroiliac joint.~ The skin and subcutaneous tissues were anesthetized using lidocaine 1.5% and a 25-gauge needle.~ After this, a 22- gauge spinal needle was inserted under fluoroscopic guidance into the inferior aspect of the left sacroiliac joint.~ Omnipaque dye was injected and good spread was seen throughout the joint. After this, approximately 5 mL of bupivacaine, 0.25% and Depo-Medrol, 40 mg was incrementally injected into the left sacroiliac joint.~ The patient tolerated the procedure well with no complications. The patient was observed in the Pain Clinic and then was discharged home neurologically intact. Plan and Disposition:: Patient was discharged with essentially no pain. She will return to see us on a follow-up visit.
--- NOTE | 2021-07-02 11:21 | HMH.ITSTN ---
PT DENIES ANY CHANCE IN PREG. PT STATES SHE TOOK PREG TEST 2 DAYS AGO AND IT WAS NEG. I ASKED PATIENT IF SHE WANTED A PREG TEST TODAY BEFORE BILAT SI INJECTION UNDER FLUORO GUIDED AND SHE STATED NO AND GAVE CONSENT TO CONTINUE. NURSE LIND WITNESSED CONSENT.
[2021-07-02 11:28] VITALS: BP 158/94; PULSE 107; RESP 20; O2SAT 96
== END 2021-07-02 11:29 | disposition home or self-care (01) ==
LOC: SC.PAINP 11:00
PROVIDERS: PCP Emergency Medicine; Visit Provider Nurse Anesthetist, Certified Registered
DX: M46.1 Sacroiliitis, not elsewhere classified (principal); J45.909 Unspecified asthma, uncomplicated; I10 Essential (primary) hypertension; F41.9 Anxiety disorder, unspecified; F32.A Depression, unspecified; M79.7 Fibromyalgia; F12.90 Cannabis use, unspecified, uncomplicated; Z72.0 Tobacco use; Z87.440 Personal history of urinary (tract) infections; Z86.16 Personal history of COVID-19
CPT/HCPCS: 27096; G0260; J1040

== ENCOUNTER 2021-07-15 11:24 | Emergency (ER) | payer OTHER, SELFPAY ==
[2021-07-15 12:50] VITALS: BP 141/95; PULSE 108; RESP 22; TEMP 37.1; O2SAT 98; BMI 48.7
--- NOTE | 2021-07-15 12:55 | HMH.EDUTC ---
[facility] [place] Clinical Impression: Constipation Qualifiers: Constipation type: unspecified constipation type Qualified Code(s): K59.00 - Constipation, unspecified Disposition: Home, Self-Care Condition on Discharge: Good Instructions: Constipation, DI for Constipation Additional Instructions: Make sure to drink plenty of fluids and juices like apple juice may help with constipation Make sure to eat plenty of fiber in your diet Make sure to eat fruits to help with constipation Enema and glycerin suppositories may help if you are unable to pass hard stool Followup iwth your Family Doctor if no improvement Prescriptions: Magnesium Citrate [Magnesium Citrate 10oz Bottle] 1 bottle PO ONCE #296 ml Transmission Status: Pending to [facility] Referrals: Kadeem Guerrero MD [Primary Care Provider] - As needed Time of Disposition: 15:00 Medical Decision Making - Pal Inquiry Pt receiving controlled substance: No Pal was queried for this patient: No Vital Signs: 07/15/21 12:50 07/15/21 14:24 Temperature 98.8 F 98.8 F Temperature Source Oral Pulse Rate 108 H Pulse Rate [Right Brachial] 108 H Respiratory Rate Blood Pressure 141/95 H Blood Pressure [Right Arm] 141/95 H Blood Pressure Mean [Right Arm] 110 Blood Pressure Source [Right Arm] Automatic Cuff Blood Pressure Position [Right Arm] Sitting 02 Sat by Pulse Oximetry 98 Oxygen Delivery Method Room Air - Lab Data Lab results reviewed: Yes: I reviewed the patient's lab results. Lab Results 07/15/21 12:40: [facility] Clinic Negative Orders (Tests/Meds): ORDERS Category Date Time Status KUB (single view) [XR KUB] Stat Exams 07/15/21 12:58 Taken - Radiology Data #1 Image(s): KUB Image Reviewed: Yes I have reviewed radiologist's interpretation . Nonobstructive bowel gas pattern. 2. Large amount of retained stool. [facility] [place] HPI - General Stated complaint: constipation, late menstruation Time Seen by Provider: 07/15/21 12:55 Mode of Arrival: Ambulatory Source of Information: Patient Limitations: No Limitations Description of Symptoms (Recalled from Triage Doc. by RN): PATIENT C/O CONSTIPATION X 1 WEEK AND IS 14 DAYS LATE ON PERIOD HEENT Symptoms (Recalled from RN notes): No Resp Symptoms (Recalled from RN notes): No Skin Symptoms (Recalled from RN notes): No MS Symptoms (Recalled from RN notes): No Functional Status (Recalled from RN notes): WNL - History of Present Illness Provider Complaint: Patient state that she is 14 days late on her period and she took an at home test and it was negative State that also she hasnt had a good bowel movment in about a week State that she is having small bowel movements and had one yesterday States that she took stool softners but they havent helped so she came in to get checked - Related Data Home Medications Medication Instructions Recorded Confirmed Budesonide/Formoterol Fumarate 2 puff INHALATION BID 05/14/21 07/02/21 [Budesonide-Formoterol 80-4.5] Pantoprazole Sodium 40 mg PO DAILY 05/14/21 07/02/21 clomiPHENE citrate [Clomiphene 50 mg PO DAILY 05/14/21 07/02/21 Citrate] olanzapine 20 mg tablet 20 mg PO DAILY tab 06/24/21 07/02/21 Metformin HCl 500 mg PO BID 07/02/21 07/02/21 methylPREDNISolone [Medrol] 4 mg PO DIRECTED 07/02/21 07/02/21 Previous Rx's Medication Instructions Recorded pregabalin 300 mg capsule 300 mg PO BID PRN #60 cap 04/19/21 albuterol sulfate 90 mcg/actuation 1 puff INHALATION DAILY #8.5 g 04/28/21 aerosol inhaler buspirone 10 mg tablet 20 mg PO BID #120 tab 06/09/21 fluoxetine 40 mg capsule 40 mg PO DAILY #30 cap 06/09/21 trazodone 50 mg tablet 50 mg PO QHS PRN #30 tab 06/09/21 phentermine 37.5 mg tablet 37.5 mg PO DAILY #30 tab 07/09/21 Magnesium Citrate [Magnesium 1 bottle PO ONCE #296 ml 07/15/21 Citrate 10oz Bottle] Allergies Allergy/AdvReac Type Severity Reaction Status Date / Time No Known Allerg
--- NOTE | 2021-07-15 12:58 | XR_ITS ---
FINAL REPORT CLINICAL HISTORY: constipation FINDINGS: ABDOMEN SINGLE VIEW A single view of the abdomen was obtained. There is a nonobstructive bowel gas pattern. There are no abnormally dilated loops of small bowel. There is a large amount of retained stool. IMPRESSION: 1. Nonobstructive bowel gas pattern. 2. Large amount of retained stool. Reviewed, Interpreted and Dictated by Chevy Scott III, MD Transcribed by Nora Swanson Authenticated by Chevy Scott III, MD on 07/15/2021 02:51:[address] [facility]
[2021-07-15 12:59] LABS: UTC Pregnancy Test, Urine Negative (Negative)
[2021-07-15 14:24] VITALS: BP 141/95; PULSE 108; RESP 22; TEMP 37.1; O2SAT 98
== END 2021-07-15 15:12 | disposition home or self-care (01) ==
PROVIDERS: Emergency Provider Nurse Practitioner; PCP Emergency Medicine
DX: K59.00 Constipation, unspecified (principal); N91.2 Amenorrhea, unspecified; F41.8 Other specified anxiety disorders; I10 Essential (primary) hypertension; J45.909 Unspecified asthma, uncomplicated; F17.210 Nicotine dependence, cigarettes, uncomplicated
CPT/HCPCS: 74018; 81025; 99213; G0463

== ENCOUNTER → 2021-07-29 11:30 | Outpatient (POV) | payer OTHER, SELFPAY ==
[2021-07-29 11:51] VITALS: BP 132/99; PULSE 127; RESP 21; TEMP 37.6; O2SAT 94; BMI 42.5
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
== END ==
PROVIDERS: Visit Provider Student in an Organized Health Care Education/Training Program
DX: M54.50 Low back pain, unspecified (principal); G89.29 Other chronic pain; M46.1 Sacroiliitis, not elsewhere classified; M70.61 Trochanteric bursitis, right hip; M70.62 Trochanteric bursitis, left hip
CPT/HCPCS: 99212; G0463

== ENCOUNTER → 2021-09-14 14:06 | Outpatient (CLI) | payer OTHER, SELFPAY ==
[2021-09-14 15:04] LABS: Basophils % 0.4 % (0.1-2.0); Eosinophils % 0.3 % (0.1-12.0); Hematocrit 43.7 % (37.0-47.0); Hemoglobin 13.1 g/dL (12.2-16.2); Lymphocytes # 1.3 K/mm3 (0.7-4.5); Lymphocytes % 12.7 % (10-50); Mean Corpuscular HGB Conc 29.9 g/dL (31.8-35.4); Mean Corpuscular Hemoglobin 25.4 pg (27.0-31.2); Mean Platelet Volume 7.7 fl (7.4-10.4); Monocytes # 0.4 K/mm3 (0.1-1.0); Monocytes % 3.4 % (1.7-9.3); Neutrophils # 8.5 K/mm3 (1.8-7.8); Neutrophils % 83.2 % (37.0-80.0); Platelet Count 458 K/mm3 (142-424); Red Blood Count 5.14 M/mm3 (4.20-5.40); Red Cell Distribution Width 14.9 % (11.5-17.5); White Blood Count 10.2 K/mm3 (4.8-10.8)
[2021-09-14 15:17] LABS: Chloride 102 mmol/L (98-107)
[2021-09-14 15:18] LABS: Potassium 4.4 mmoL/L (3.5-5.1); Sodium 137 mmol/L (136-145)
[2021-09-14 15:20] LABS: Alanine Aminotransferase 31 U/L (12-78); Aspartate Amino Transferase 27 U/L (14-36); Blood Urea Nitrogen 9 mg/dl (7-17); Estimated Glomerular Filt Rate 124 ml/min (>60); GFR (African American) 150 ML/MIN (>60)
[2021-09-14 15:21] LABS: Albumin Level 4.1 g/dl (3.5-5.0); Albumin/Globulin Ratio 1.5 (1.1-1.8); Alkaline Phosphatase 122 U/L (38-126); Anion Gap 12.4 mEq/L (5-15); Bilirubin,Total 0.4 mg/dl (0.2-1.3); Calcium 9.4 mg/dl (8.4-10.2); Carbon Dioxide 27 mmol/L (22.0-30.0); Globulin 2.8 g/dL (1.3-3.2); Glucose 109 mg/dl (74-100); Total Protein,Serum 6.9 g/dl (6.3-8.2)
[2021-09-14 16:50] LABS: Triiodothryronine (T3) Uptake 36 % (23.5-40.5)
[2021-09-14 16:51] LABS: Free Thyroxine Index 2.9 ug/dL (5.93-13.13); T4 (Thyroxine) 8.1 ug/dl (5.53-11.0)
[2021-09-14 17:05] LABS: Thyroid Stimulating Hormone 1.62 uIU/mL (0.465-4.68)
[2021-09-14 17:06] LABS: Hemoglobin A1C 6.1 % (4.0-6.0)
[2021-09-15 00:20] LABS: Vitamin B12 298 pg/mL (239-931)
[2021-09-27 22:09] LABS: 1,25 Dihydroxy Vitamin D 39 pg/mL (.); 1,25-Dihydroxy, Vitamin D-2 <10 pg/mL (.); 1,25-Dihydroxy, Vitamin D-3 39 pg/mL (.)
== END ==
PROVIDERS: PCP Emergency Medicine; Visit Provider Nurse Practitioner Psychiatric/Mental Health
DX: Z00.00 Encounter for general adult medical examination without abnormal findings (principal); Z79.899 Other long term (current) drug therapy
CPT/HCPCS: 36415; 80053; 82607; 82652; 83036; 84436; 84443; 84479; 85025

== ENCOUNTER 2021-10-12 14:52 | Emergency (ER) | payer OTHER, SELFPAY ==
[2021-10-12 14:54] VITALS: BP 121/69; PULSE 109; RESP 18; TEMP 37.4; O2SAT 97; BMI 46.9
[2021-10-12 15:13] VITALS: PULSE 91; O2SAT 96
[2021-10-12 15:17] LABS: Microscopic, Urine URINE MICROSCOPIC (MICROSCOPIC)
[2021-10-12 15:18] LABS: Appearance,Urine CLEAR (Clear); Blood, Urine Negative (Negative); Color,Urine YELLOW (Yellow); Glucose,Urine (UA) Negative (Negative); Ketones,Urine Negative (Negative); Leukocyte Esterase,Urine Negative (Negative); Nitrate,Urine Negative (Negative); PH,Urine 6.5 (5.0-8.5); Protein,Urine Negative (Negative); Specific Gravity, Urine 1.025 (1.005-1.030); Urobilinogen,Urine 0.2 EU/dl (0.2)
[2021-10-12 15:25] LABS: Bilirubin,Urine 1+ (Negative); Urine Pregnancy, HCG Qual. Negative (Negative)
--- NOTE | 2021-10-12 15:25 | HMH.EDGENADL ---
ED Disposition Clinical Impression: Rectal bleeding Abdominal pain Qualifiers: Abdominal location: lower abdomen, unspecified Qualified Code(s): R10.30 - Lower abdominal pain, unspecified Otitis externa Qualifiers: Otitis externa type: unspecified type Chronicity: acute Laterality: bilateral Qualified Code(s): H60.503 - Unspecified acute noninfective otitis externa, bilateral Disposition: Home, Self-Care Condition on Discharge: Good Instructions: DI for Acute Abdominal Pain Additional Instructions: Collect a diarrhea sample using the provided supplies and return it along with the order form to ER registration at [facility] for testing. Obtain the results of this test from your primary care provider the next day. Follow-up with your primary care provider for further care, call tomorrow to make appointment. Floxin otic eardrops. Follow-up with ENT, Dr. Graham, call tomorrow to make appointment. Additional instructions for ABDOMINAL PAIN: See your physician as soon as possible for further evaluation. Return immediately if worsening abdominal pain, vomiting, shortness of breath, fever, vomiting of blood or abdominal distention. Prescriptions: Ofloxacin [Floxin 0.3% OTIC Solution 5mL] 5 drp OT BID #5 ml Transmission Status: Pending to [facility] Referrals: Kadeem Guerrero MD [Primary Care Provider] - Harjinder Graham MD [Physician] - - Critical Care Critical Care Time: No Attestation: On 10/12/21, the high probability of a clinically significant, sudden or life threatening deterioration of the following system(s) required my full and direct attention, intervention and personal management. The time I documented below is in addition to time spent performing reported procedures but includes the following listed in this critical care notation. Medical Decision Making - Pal Inquiry Pt receiving controlled substance: No Vital Signs: 10/12/21 14:54 10/12/21 15:13 10/12/21 15:30 Temperature 99.4 F Temperature Source Oral Pulse Rate 91 H 85 Pulse Rate [Radial] 109 H Respiratory Rate 18 18 Blood Pressure 113/65 Blood Pressure [Right Arm] 121/69 Blood Pressure Mean 82 Blood Pressure Mean [Right Arm] 86 Blood Pressure Position [Right Arm] Sitting 02 Sat by Pulse Oximetry 97 96 96 Oxygen Delivery Method Room Air 10/12/21 16:31 Temperature Temperature Source Pulse Rate 65 Pulse Rate [Radial] Respiratory Rate Blood Pressure 110/45 L Blood Pressure [Right Arm] Blood Pressure Mean 64 Blood Pressure Mean [Right Arm] Blood Pressure Position [Right Arm] 02 Sat by Pulse Oximetry 98 Oxygen Delivery Method - Lab Data Lab Results 10/12/21 15:00: Urine Color Yellow, Urine Appearance Clear, Urine pH 6.5, Ur Specific [place] 1.025, Urine Protein Negative, Urine Glucose (UA) Negative, Urine Ketones Negative, Urine Blood Negative, Urine Nitrate Negative, Urine Bilirubin 1+ A, Urine Urobilinogen 0.2, Ur Leukocyte Esterase Negative, Urine RBC Occasional, Urine WBC Occasional, Ur Squamous Epith Cells 5-10, Urine Bacteria 2+, Urine Mucus 3+ 10/12/21 15:00: Urine HCG, Qual Negative 10/12/21 15:41: WBC 11.8 H, RBC 5.24, Hgb 13.7, Hct 43.8, MCV 83.7, MCH 26.2 L, MCHC 31.3 L, RDW 14.5, Plt Count 528 H, MPV 7.3 L, Neut % (Auto) 81.2 H, Lymph % (Auto) 13.5, [place] % (Auto) 4.2, Eos % (Auto) 0.6, Baso % (Auto) 0.6, Neut # (Auto) 9.6 H, Lymph # (Auto) 1.6, [place] # (Auto) 0.5, Eos # (Auto) 0.1, Baso # (Auto) 0.1 10/12/21 15:41: Sodium 136, Potassium 3.9, Chloride 105, Carbon Dioxide 26, Anion Gap 8.9, BUN 7, Creatinine 0.60, Estimated Creat Clear 121, Estimated GFR 124, Est GFR ( Amer) 150, Glucose 98, Calcium 9.0, Total Bilirubin 0.2, AST 21, ALT 21, Alkaline Phosphatase 128 H, Total Protein 6.9, Albumin 3.8, Globulin 3.1, Albumin/Globulin Ratio 1.2 Result diagrams: 10/12/21 15:41 10/12/21 15:41 Orders (Tests/Meds): ORDERS Category Date Time Status Diarrhea 6-11 Panel,
[2021-10-12 15:30] VITALS: BP 113/65; PULSE 85; RESP 18; O2SAT 96
[2021-10-12 15:36] LABS: RBC,Urine Occasional #/hpf (0-3); WBC,Urine Occasional #/hpf (0-3)
[2021-10-12 15:37] LABS: Bacteria,Urine 2+ /lpf; Mucus,Urine 3+ /lpf
[2021-10-12 15:59] LABS: Basophils # 0.1 K/mm3 (0-0.2); Basophils % 0.6 % (0.1-2.0); Eosinophils # 0.1 K/mm3 (0.0-0.4); Eosinophils % 0.6 % (0.1-12.0); Hematocrit 43.8 % (37.0-47.0); Hemoglobin 13.7 g/dL (12.2-16.2); Lymphocytes # 1.6 K/mm3 (0.7-4.5); Lymphocytes % 13.5 % (10-50); Mean Corpuscular HGB Conc 31.3 g/dL (31.8-35.4); Mean Corpuscular Hemoglobin 26.2 pg (27.0-31.2); Mean Corpuscular Volume 83.7 fl (81-99); Mean Platelet Volume 7.3 fl (7.4-10.4); Monocytes # 0.5 K/mm3 (0.1-1.0); Monocytes % 4.2 % (1.7-9.3); Neutrophils # 9.6 K/mm3 (1.8-7.8); Neutrophils % 81.2 % (37.0-80.0); Platelet Count 528 K/mm3 (142-424); Red Blood Count 5.24 M/mm3 (4.20-5.40); Red Cell Distribution Width 14.5 % (11.5-17.5); White Blood Count 11.8 K/mm3 (4.8-10.8)
[2021-10-12 16:06] LABS: Alanine Aminotransferase 21 U/L (12-78); Albumin Level 3.8 g/dl (3.5-5.0); Albumin/Globulin Ratio 1.2 (1.1-1.8); Alkaline Phosphatase 128 U/L (38-126); Anion Gap 8.9 mEq/L (5-15); Aspartate Amino Transferase 21 U/L (14-36); Bilirubin,Total 0.2 mg/dl (0.2-1.3); Blood Urea Nitrogen 7 mg/dl (7-17); Carbon Dioxide 26 mmol/L (22.0-30.0); Chloride 105 mmol/L (98-107); Creatinine Clearance Estimated 121 mL/min (50-200); Estimated Glomerular Filt Rate 124 ml/min (>60); GFR (African American) 150 ML/MIN (>60); Globulin 3.1 g/dL (1.3-3.2); Glucose 98 mg/dl (74-100); Potassium 3.9 mmoL/L (3.5-5.1); Sodium 136 mmol/L (136-145); Total Protein,Serum 6.9 g/dl (6.3-8.2)
[2021-10-12 16:31] VITALS: BP 110/45; PULSE 65; O2SAT 98
--- NOTE | 2021-10-12 16:35 | PC.NURSE ---
rounded on pt, no needs at this time, pt refuses blanket
[2021-10-12 17:06] VITALS: BP 123/68; PULSE 78; RESP 16; TEMP 36.6; O2SAT 98
== END 2021-10-12 17:07 | disposition home or self-care (01) ==
PROVIDERS: Emergency Provider Emergency Medicine; PCP Emergency Medicine
DX: K62.5 Hemorrhage of anus and rectum (principal); R10.30 Lower abdominal pain, unspecified; H60.503 Unspecified acute noninfective otitis externa, bilateral; Z79.51 Long term (current) use of inhaled steroids; Z79.899 Other long term (current) drug therapy; J45.909 Unspecified asthma, uncomplicated; F41.9 Anxiety disorder, unspecified; I10 Essential (primary) hypertension; Z87.440 Personal history of urinary (tract) infections; M79.7 Fibromyalgia; F31.9 Bipolar disorder, unspecified; Z72.0 Tobacco use
CPT/HCPCS: 80053; 81001; 81025; 85025; 87086

== ENCOUNTER → 2021-10-13 18:19 | Outpatient (CLI) | payer OTHER, SELFPAY ==
[2021-10-13 19:47] LABS: Adenovirus F 40/41, stool Not Detected (NotDetected); Astrovirus Not Detected (NotDetected); Campylobacter Not Detected (NotDetected); Clostridium Difficile A/B, PCR Not Detected (NotDetected); Cryptosporidium Not Detected (NotDetected); Cyclospora Cayetanesis Not Detected (NotDetected); Entamoeba histolytica Not Detected (NotDetected); Enteroaggregative E coli Not Detected (NotDetected); Enteropathogenic E coli Not Detected (NotDetected); Enterotoxigenic E coli Not Detected (NotDetected); Giardia lamblia Not Detected (NotDetected); Norovirus Not Detected (NotDetected); Plesimonas Shigalloides, PCR Not Detected (NotDetected); Rotavirus A Not Detected (NotDetected); Salmonella, PCR Not Detected (NotDetected); Sapovirus Not Detected (NotDetected); Shiga-like toxin E coli Not Detected (NotDetected); Shigella Enterovasive E coli Not Detected (NotDetected); Vibrio Cholerae Not Detected (NotDetected); Vibrio, PCR Not Detected (NotDetected); Yersinia Entercolitica, PCR Not Detected (NotDetected)
== END ==
PROVIDERS: PCP Emergency Medicine; Visit Provider Emergency Medicine
DX: K92.1 Melena (principal)
CPT/HCPCS: 87507

== ENCOUNTER 2021-11-01 16:15 | Emergency (ER) | payer OTHER, SELFPAY ==
--- NOTE | 2021-11-01 17:19 | PC.NURSE ---
PT placed in traige and assessed at this time. Pt is stable with stable VSS, HR 62, temp 98.6 oral, bp 115/82 and oxygen of 95. PT understands that bed is not available at this time and once one comes open she will come back to the ER.
[2021-11-01 20:22] VITALS: BP 0/0; PULSE 0; RESP 0; TEMP -17.7; TEMP 0; O2SAT 0
== END 2021-11-01 20:25 | disposition left against medical advice (07) ==
LOC: ER 19:16
PROVIDERS: Emergency Provider Emergency Medicine; PCP Emergency Medicine
DX: R11.2 Nausea with vomiting, unspecified (principal); R19.7 Diarrhea, unspecified; R10.9 Unspecified abdominal pain; Z53.21 Procedure and treatment not carried out due to patient leaving prior to being seen by health care provider; K58.9 Irritable bowel syndrome, unspecified; F17.210 Nicotine dependence, cigarettes, uncomplicated
CPT/HCPCS: 99211

== ENCOUNTER 2021-11-29 19:20 | Emergency (ER) | payer OTHER, SELFPAY ==
[2021-11-29] VITALS (8 sets, daily range): BP systolic 98–120; BP diastolic 45–72; PULSE 80–112; RESP 16–18; TEMP 36.6–37.2; O2SAT 90–99; BMI 42.5
--- NOTE | 2021-11-29 19:45 | ECG_ITS ---
APPROVED REPORT Exam: Resting ECG HR:100 bpm ECG Measurements Heart Rate 100 AXES FL 122 P 59 QRSd 86 QRS 89 QT 390 T 51 QTc 447 Conclusion SINUS TACHYCARDIA POSSIBLE LEFT ATRIAL ENLARGEMENT [-0.1mV P-WAVE IN V1/V2] NONSPECIFIC ST & T-WAVE ABNORMALITY ABNORMAL RHYTHM ECG UNCONFIRMED REPORT Electronically signed by : Luke Montgomery MD 11/30/2021 21:09:07
--- NOTE | 2021-11-29 19:57 | PC.NURSE ---
Spoke with Antonina at poison control regarding patient taking 3 300mg lyrica at 1000 and another 3 300 lyrica at 1500. Per Poison control she should be monitored for 3 hours and should she remain stable she can be discharged. Poison control recommended labs to check for tylenol and aspirin levels and a uds. Pt is currently alert oriented and stable.
[2021-11-29 20:06] LABS: Basophils # 0.1 K/mm3 (0-0.2); Eosinophils # 0.2 K/mm3 (0.0-0.4); Eosinophils % 1.2 % (0.1-12.0); Hemoglobin 14.1 g/dL (12.2-16.2); Lymphocytes # 1.8 K/mm3 (0.7-4.5); Lymphocytes % 12.8 % (10-50); Mean Corpuscular HGB Conc 32.7 g/dL (31.8-35.4); Mean Corpuscular Hemoglobin 26.6 pg (27.0-31.2); Mean Corpuscular Volume 81.3 fl (81-99); Mean Platelet Volume 7.2 fl (7.4-10.4); Monocytes # 0.6 K/mm3 (0.1-1.0); Monocytes % 4.1 % (1.7-9.3); Neutrophils # 11.2 K/mm3 (1.8-7.8); Platelet Count 514 K/mm3 (142-424); White Blood Count 13.8 K/mm3 (4.8-10.8)
[2021-11-29 20:07] LABS: Amphetamine/Metha Screen,Urine Negative ng/ml (<1000); Barbiturates Screen,Urine Negative ng/ml (<200)
[2021-11-29 20:08] LABS: Benzodiazepines Screen,Urine Negative ng/ml (<200)
[2021-11-29 20:09] LABS: Cannabinoid Screen,Urine Positive ng/ml (<50)
[2021-11-29 20:10] LABS: Methadone Screen,Urine Negative ng/ml (<300); Phencyclidine Screen,Urine Negative ng/ml (<25)
[2021-11-29 20:11] LABS: Opiate Screen,Urine Negative ng/ml (<300)
[2021-11-29 20:13] LABS: Alanine Aminotransferase 37 U/L (12-78); Albumin Level 3.9 g/dl (3.5-5.0); Albumin/Globulin Ratio 1.3 (1.1-1.8); Alkaline Phosphatase 113 U/L (38-126); Anion Gap 15.4 mEq/L (5-15); Aspartate Amino Transferase 32 U/L (14-36); Blood Urea Nitrogen 4 mg/dl (7-17); Calcium 8.5 mg/dl (8.4-10.2); Carbon Dioxide 25 mmol/L (22.0-30.0); Chloride 97 mmol/L (98-107); Creatinine Clearance Estimated 121 mL/min (50-200); Estimated Glomerular Filt Rate 124 ml/min (>60); GFR (African American) 150 ML/MIN (>60); Globulin 3.1 g/dL (1.3-3.2); Glucose 133 mg/dl (74-100); Potassium 3.4 mmoL/L (3.5-5.1); Sodium 134 mmol/L (136-145)
[2021-11-29 20:14] LABS: Cocaine Screen,Urine Negative ng/ml (<300)
[2021-11-29 20:18] LABS: Bilirubin,Total < 0.1 mg/dl (0.2-1.3); Ethyl Alcohol < 10 mg/dl (0-10)
[2021-11-29 20:19] LABS: Acetaminophen < 10 ug/ml (10-30); Salicylate < 1.0 mg/dL (2.0-20.0)
--- NOTE | 2021-11-29 20:23 | PC.NURSE ---
MD notified of patients condition and triage completion.
[2021-11-29 20:35] LABS: HCG Qualitative, Serum Negative (Negative)
--- NOTE | 2021-11-29 21:26 | HMH.EDOD ---
Discharge Plan Disposition Patient Disposition: Home, Self-Care Chief Complaint: Overdose Prescriptions Prescriptions: No Action loperamide [Anti-Diarrheal (loperamide)] 2 mg capsule 2 mg PO Q4H PRN (Reason: loose stool) Qty: 30 0RF Rx Instructions: administer after each loose stool until symptoms controlled; do not exceed 8 mg per 24 hrs albuterol sulfate 90 mcg/actuation HFA aerosol inhaler 1 puff IH DAILY Qty: 8.5 2RF atomoxetine 40 mg capsule 40 mg PO DAILY Qty: 30 1RF buspirone 10 mg tablet 20 mg PO QHS Qty: 60 1RF fluoxetine 40 mg capsule 40 mg PO DAILY Qty: 30 1RF hydroxyzine pamoate [Vistaril] 25 mg capsule 25 mg PO TID PRN (Reason: for increased anxiety) Qty: 90 0RF trazodone 50 mg tablet 50 mg PO QHS PRN (Reason: sleep) Qty: 30 1RF metformin 500 mg tablet See Rx Instructions .ROUTE .COMPLEX Rx Instructions: TAKE 1 TABLET BY MOUTH TWICE DAILY ofloxacin 5 ML drops 5 drp OT BID lidocaine 0.05 MG/MG adhesive patch,medicated 1 patch TP DAILY pregabalin [Lyrica] 300 mg capsule 300 mg PO BID pantoprazole 40 MG tablet,delayed release (DR/EC) 40 mg PO DAILY budesonide-formoterol 10.2 GM HFA aerosol inhaler 2 puff IH BID Referrals Follow up/Referrals: Kadeem Guerrero MD [Primary Care Provider] - See instructions Clinical Impressions Clinical Impression: Overdose Instructions Patient Instructions: DI for Drug Overdose in Adults Discharge ED Provider: Kadeem Guerrero Overdose HPI General Chief Complaint: Overdose Stated Complaint: took 6 300 mg Lyrica Time Seen by Provider: 11/29/21 21:26 Mode of Arrival: Ambulatory Source of Information: Patient and Medical Record Limitations: No Limitations Description of Symptoms (Recalled from ER Triage Doc. by RN): Patient states that she ran out of her rx lyrica 2 days ago and when she got her rx filled today she took 3 at 1000 and another 3 at 1500 to catch up on the dose. Denies that she did this in a suicide attempt. States it was an accident, that she didn't know any better. Does report dizziness for the prior hour. History of Present Illness HPI Narrative: pt mistook her lyrica today - no self- harm -no other ingestions complaint: accidental overdose Onset (ago): hour(s) lyrica: Strength of Substance: 300 Number of Pills Ingested: 6 Total Dose: 1800 Context: Accidental Overdose: medication error Treatments Prior to Arrival: none Related Data Home Medications Medication Instructions Recorded Confirmed budesonide-formoterol HFA 80 2 puff inhalation BID Breathing 05/14/21 11/29/21 mcg-4.5 mcg/actuation aerosol problems inhaler pantoprazole 40 mg tablet,delayed 40 mg PO DAILY GERD 05/14/21 11/29/21 release lidocaine 5 % topical patch 1 patch TP DAILY back pain 11/29/21 11/29/21 metformin 500 mg tablet See Rx Instructions .Route 11/29/21 11/29/21 .COMPLEX Diabetes ofloxacin 0.3 % ear drops 5 drp OT BID ear infection 11/29/21 11/29/21 pregabalin 300 mg capsule (Lyrica) 300 mg PO BID nerve pain 11/29/21 11/29/21 Previous Rx's Medication Instructions Recorded albuterol sulfate 90 mcg/actuation 1 puff inhalation DAILY Asthma 04/28/21 aerosol inhaler #8.5 grams loperamide 2 mg capsule 2 mg PO Q4H PRN loose stool #30 10/20/21 (Anti-Diarrheal (loperamide)) caps atomoxetine 40 mg capsule 40 mg PO DAILY MOOD #30 caps 11/24/21 buspirone 10 mg tablet 20 mg PO QHS Depression #60 tabs 11/24/21 fluoxetine 40 mg capsule 40 mg PO DAILY MOOD #30 caps 11/24/21 hydroxyzine pamoate 25 mg capsule 25 mg PO TID PRN for increased 11/24/21 (Vistaril) anxiety #90 caps trazodone 50 mg tablet 50 mg PO QHS PRN sleep #30 tabs 11/24/21 Allergies Allergy/AdvReac Type Severity Reaction Status Date / Time No Known Allergies Allergy Verified 11/24/21 14:56 [facility] Medical History (Updated 11/29/21 @ 21:51 by Kadeem Guerrero MD) IBS (ir
--- NOTE | 2021-11-29 21:35 | PC.NURSE ---
Antonina from Poison control called for an update. Stated as long as she is can eat/drink/ambulate she is ok to d/c
--- NOTE | 2021-11-29 22:32 | PC.NURSE ---
Spoke with patient regarding her driving home . Patient is drowsy but is alert and oriented and arousable to name. Patient states that her cousin will come and get her to drive her home. Patient is waiting in bed until her cousin arrives.
[2021-12-01 21:37] LABS: Peripheral Smear Review Scanned Result
== END 2021-11-29 23:18 | disposition home or self-care (01) ==
PROVIDERS: Emergency Medicine; Emergency Provider Emergency Medicine; PCP Emergency Medicine
DX: R42 Dizziness and giddiness (principal); M54.9 Dorsalgia, unspecified; R53.81 Other malaise; E11.9 Type 2 diabetes mellitus without complications; K58.9 Irritable bowel syndrome, unspecified; E66.9 Obesity, unspecified; F41.9 Anxiety disorder, unspecified; F17.210 Nicotine dependence, cigarettes, uncomplicated; Z79.1 Long term (current) use of non-steroidal anti-inflammatories (NSAID); Z79.84 Long term (current) use of oral hypoglycemic drugs; Z79.51 Long term (current) use of inhaled steroids; Z79.899 Other long term (current) drug therapy; Z68.41 Body mass index [BMI] 40.0-44.9, adult
CPT/HCPCS: 80053; 80305; 80329; 84703; 85025; 93005; 99284

== ENCOUNTER → 2021-12-22 11:00 | Outpatient (CLI) | payer OTHER, SELFPAY | PROVIDERS: Visit Provider Otolaryngology | DX: H92.12 Otorrhea, left ear (principal); B95.7 Other staphylococcus as the cause of diseases classified elsewhere | CPT/HCPCS: 87070; 87077; 87186 ==

== ENCOUNTER 2022-01-02 08:08 | Emergency (ER) | payer OTHER, SELFPAY ==
[2022-01-02 08:21] VITALS: BP 129/80; PULSE 111; RESP 16; TEMP 37.1; O2SAT 96; BMI 41.4
--- NOTE | 2022-01-02 08:25 | EXP.UTC ---
Discharge Plan Disposition Patient Disposition: Home, Self-Care Condition: Good Prescriptions Prescriptions: New Proctofoam HC 1-1 % foam 1 applic SC QID PRN (Reason: hemorrhoids) Qty: 10 1RF ibuprofen [IBU] 800 mg tablet 800 mg PO Q8HP PRN (Reason: Moderate Pain) Qty: 30 0RF docusate sodium [Colace] 100 mg capsule 100 mg PO DAILY 30 Days Qty: 30 5RF No Action loperamide [Anti-Diarrheal (loperamide)] 2 mg capsule 2 mg PO Q4H PRN (Reason: loose stool) Qty: 30 0RF Rx Instructions: administer after each loose stool until symptoms controlled; do not exceed 8 mg per 24 hrs buspirone 10 mg tablet 20 mg PO QHS Qty: 60 1RF fluoxetine 40 mg capsule 40 mg PO DAILY Qty: 30 1RF hydroxyzine pamoate [Vistaril] 25 mg capsule 25 mg PO TID PRN (Reason: for increased anxiety) Qty: 90 0RF ofloxacin 0.3 % drops 5 drp otic (ear) BID Qty: 5 0RF albuterol sulfate 90 mcg/actuation HFA aerosol inhaler 1 puff IH DAILY Qty: 8.5 2RF atomoxetine 40 mg capsule 40 mg PO DAILY Qty: 30 1RF trazodone 50 mg tablet 50 mg PO QHS PRN (Reason: sleep) Qty: 30 1RF metformin 500 mg tablet See Rx Instructions .ROUTE .COMPLEX Rx Instructions: TAKE 1 TABLET BY MOUTH TWICE DAILY lidocaine 0.05 MG/MG adhesive patch,medicated 1 patch topical DAILY pregabalin [Lyrica] 300 mg capsule 300 mg PO BID pantoprazole 40 MG tablet,delayed release (DR/EC) 40 mg PO DAILY budesonide-formoterol 10.2 GM HFA aerosol inhaler 2 puff IH BID Referrals Follow up/Referrals: Kadeem Guerrero MD [Primary Care Provider] - See instructions Activity Restrictions/Add. Instructions Additional Instructions/Restrictions: Drink plenty of fluids. Take ibuprofen for pain. I sent in a prescription for this to your pharmacy. Take the medications as directed. Follow up with your regular doctor. Follow up with the surgeon. I put in a referral to Dr. Borges. Please call him and get an appointment, unless your primary care physician has already referred you to a surgeon. Follow your pcp's instructions. GO TO THE ER FOR ANY WORSENING SYMPTOMS Eat a diet high in fiber. Take the stool softener medication (colace) as directed. Do warm sitz baths three or four times per day for the next few days. Clinical Impressions Clinical Impression: Pain, rectal, Hemorrhoids Instructions Patient Instructions: Hemorrhoids, DI for Hemorrhoids Discharge ED Provider: Mason Kidd [facility] General Stated complaint: pain in rectum Mode of Arrival: Ambulatory Source of Information: Patient Limitations: No Limitations Time Seen by Provider: 01/02/22 08:24 Description of Symptoms (Recalled from Triage Doc. by RN): pt comes in with c/o rectal pain. pt states she has been having bowel issues since september, she is being worked up with pcp for that. pt states she has pain when she attempts to have a bowel movement and when sitting down for long periods of time. HEENT Symptoms (Recalled from RN notes): No Resp Symptoms (Recalled from RN notes): No Skin Symptoms (Recalled from RN notes): No MS Symptoms (Recalled from RN notes): No Functional Status (Recalled from RN notes): n/a History of Present Illness Provider Complaint: She states that for the past 3 months approx, she has had worsening rectal pain related to having hemorrhoids. She states that over the past couple of days her pain has worsened. Related Data Home Medications Medication Instructions Recorded Confirmed budesonide-formoterol HFA 80 2 puff inhalation BID Breathing 05/14/21 12/27/21 mcg-4.5 mcg/actuation aerosol problems inhaler pantoprazole 40 mg tablet,delayed 40 mg PO DAILY GERD 05/14/21 12/27/21 release lidocaine 5 % topical patch 1 patch topical DAILY back pain 11/29/21 12/27/21 metformin 500 mg tablet See Rx Instructions .Route 11/29/21 12/27/21 .COMPLEX Diabetes pregabalin 300 mg capsule (Lyrica) 300 m
[2022-01-02 09:35] VITALS: BP 129/80; PULSE 111; RESP 16; TEMP 37.1
== END 2022-01-02 09:36 | disposition home or self-care (01) ==
PROVIDERS: Emergency Provider Nurse Practitioner Family; PCP Emergency Medicine
DX: K64.9 Unspecified hemorrhoids (principal); K62.89 Other specified diseases of anus and rectum
CPT/HCPCS: 99212; G0463

== ENCOUNTER 2022-01-10 19:46 | Emergency (ER) | payer OTHER, SELFPAY ==
[2022-01-10 19:59] VITALS: BP 113/61; PULSE 84; RESP 16; TEMP 36.8; O2SAT 98; BMI 42.0
[2022-01-10 20:18] VITALS: BP 120/94; PULSE 97; RESP 18; O2SAT 96
[2022-01-10 20:30] VITALS: BP 113/61; PULSE 96; RESP 18; O2SAT 97
[2022-01-10 20:39] LABS: Basophils # 0.1 K/mm3 (0-0.2); Basophils % 0.5 % (0.1-2.0); Eosinophils # 0.2 K/mm3 (0.0-0.4); Eosinophils % 1.4 % (0.1-12.0); Hemoglobin 13.9 g/dL (12.2-16.2); Lymphocytes # 1.8 K/mm3 (0.7-4.5); Lymphocytes % 11.6 % (10-50); Mean Corpuscular HGB Conc 32.2 g/dL (31.8-35.4); Mean Corpuscular Volume 80.6 fl (81-99); Mean Platelet Volume 7.4 fl (7.4-10.4); Monocytes # 0.8 K/mm3 (0.1-1.0); Monocytes % 4.8 % (1.7-9.3); Neutrophils # 12.7 K/mm3 (1.8-7.8); Neutrophils % 81.8 % (37.0-80.0); Platelet Count 539 K/mm3 (142-424); Red Blood Count 5.33 M/mm3 (4.20-5.40); Red Cell Distribution Width 15.2 % (11.5-17.5); White Blood Count 15.6 K/mm3 (4.8-10.8)
[2022-01-10 20:42] LABS: Chloride 99 mmol/L (98-107); Sodium 138 mmol/L (136-145)
[2022-01-10 20:46] LABS: Blood Urea Nitrogen 4 mg/dl (7-17); Calcium 9.2 mg/dl (8.4-10.2); Carbon Dioxide 29 mmol/L (22.0-30.0); Creatinine Clearance Estimated 121 mL/min (50-200); Estimated Glomerular Filt Rate 124 ml/min (>60); GFR (African American) 150 ML/MIN (>60); Glucose 115 mg/dl (74-100)
[2022-01-10 20:48] LABS: MANUAL DIFFERENTIAL MANUAL DIFFERENTIAL (MANUAL DIFF)
--- NOTE | 2022-01-10 20:51 | HMH.EDGENADL ---
Discharge Plan Disposition Patient Disposition: Home, Self-Care Condition: Good Prescriptions Prescriptions: New sulfamethoxazole-trimethoprim [Bactrim DS] 800-160 mg Tablet 1 tab PO Q12H Qty: 14 0RF clindamycin HCl 300 mg capsule 300 mg PO QID Qty: 40 0RF No Action atomoxetine 40 mg capsule 40 mg PO DAILY Qty: 30 1RF pregabalin [Lyrica] 300 mg capsule 300 mg PO BID fluoxetine 40 mg capsule 40 mg PO DAILY Label Comments: TAKE 1 CAPSULE BY MOUTH DAILY FOR MOOD buspirone 10 mg tablet 10 mg PO DAILY Label Comments: TAKE 2 TABLETS BY MOUTH EVERY DAY AT BEDTIME FOR DEPRESSION Referrals Follow up/Referrals: Kadeem Guerrero MD [Primary Care Provider] - See instructions Clinical Impressions Clinical Impression: Cellulitis of face Instructions Patient Instructions: Cellulitis Discharge ED Provider: Kadeem Guerrero General Adult HPI General Chief complaint: PAIN Stated complaint: got cheeks peireced and pain in jaw Time Seen by Provider: 01/10/22 20:52 Mode of Arrival: Ambulatory Source of Information: Patient and Medical Record Limitations: No Limitations Description of Symptoms (Recalled from ER Triage Doc. by RN): Pt states she got her jaws pierced 3 days ago and has since noticed swelling and pain. History of Present Illness HPI narrative: pt with recent jaw piercing with swelling and pain and drainage on rt - Onset (ago): day(s) Location: face Severity: moderate Consistency: constant Associated symptoms: denies other symptoms Related Data Home Medications Medication Instructions Recorded Confirmed pregabalin 300 mg capsule (Lyrica) 300 mg PO BID nerve pain 11/29/21 01/10/22 buspirone 10 mg tablet 10 mg PO DAILY Depression 01/10/22 01/10/22 fluoxetine 40 mg capsule 40 mg PO DAILY Depression 01/10/22 01/10/22 Previous Rx's Medication Instructions Recorded atomoxetine 40 mg capsule 40 mg PO DAILY MOOD #30 caps 11/24/21 clindamycin HCl 300 mg capsule 300 mg PO QID #40 caps 01/10/22 sulfamethoxazole 800 1 tab PO Q12H #14 tabs 01/10/22 mg-trimethoprim 160 mg tablet (Bactrim DS) Allergies Allergy/AdvReac Type Severity Reaction Status Date / Time No Known Allergies Allergy Verified 01/02/22 08:28 [facility] Medical History Bipolar II disorder Drainage from left ear IBS (irritable bowel syndrome) Impacted cerumen of left ear Insomnia Major depressive disorder Social History Smoking Status: Current every day smoker tobacco type: cigarettes packs per day: 1 second hand exposure: Yes alcohol intake: never substance use type: marijuana current occupational status: unemployed Travel in the last 8 weeks: None household members: other housing: house number of children: 1 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 current occupational exposures/hazards: No caffeine: Yes ROS Obtained: Yes All systems reviewed & no additional complaints except as documented Physical Exam General General appearance: alert Head Head exam: normocephalic Eye Eye exam: Present PERRL and EOMI ENT ENT exam: Present normal oropharynx, mucous membranes moist, TM's normal bilaterally and other (drainage from piercing on rt ) Neck Neck exam: Present trachea midline Respiratory Respiratory exam: Absent respiratory distress Cardiovascular Cardiovascular exam: Present regular rate Abdominal Exam Abdominal exam: Present soft Extremities Exam Extremities exam: Present normal inspection Neurological Exam Neurological exam: Present alert, oriented X3 and CN II-XII intact Psychiatric Psychiatric exam: Present normal affect Skin Skin exam: Present other (tender area rt cheek - c/s obtained ) Medical Decision Making Medical Records Medical records reviewed: Yes I reviewed the patient's medical records. Pal Inquiry Pt receiving controlled subst
[2022-01-10 21:16] VITALS: BP 112/60; PULSE 89; RESP 16; TEMP 36.6; O2SAT 98
[2022-01-10 21:18] LABS: Lymphocytes % 17 % (10-50); Monocytes % 4 % (2-9); Neutrophils % 79 % (42-76); Total Cells Counted 100
[2022-01-10 21:19] LABS: Platelet Estimate Normal; RBC Morphology Normal
== END 2022-01-10 21:19 | disposition home or self-care (01) ==
PROVIDERS: Emergency Provider Emergency Medicine; PCP Emergency Medicine
DX: L03.90 Cellulitis, unspecified (principal); R68.84 Jaw pain; G47.00 Insomnia, unspecified; F31.9 Bipolar disorder, unspecified; F17.210 Nicotine dependence, cigarettes, uncomplicated; Z79.899 Other long term (current) drug therapy; Z87.19 Personal history of other diseases of the digestive system
CPT/HCPCS: 80048; 85007; 85025; 87070; 87077; 87186; 87205; 99283

== ENCOUNTER → 2022-01-17 14:43 | Outpatient (CLI) | payer OTHER, SELFPAY | PROVIDERS: PCP Student in an Organized Health Care Education/Training Program; Visit Provider Student in an Organized Health Care Education/Training Program | DX: R35.0 Frequency of micturition (principal) | CPT/HCPCS: 87086 ==

== ENCOUNTER 2022-03-05 14:56 | Emergency (ER) | payer OTHER, SELFPAY ==
[2022-03-05 15:00] VITALS: BP 108/42; PULSE 77; RESP 20; TEMP 36.7; O2SAT 97; BMI 38.2
[2022-03-05 15:12] VITALS: BP 108/42; PULSE 77; RESP 20; TEMP 36.7; O2SAT 97
--- NOTE | 2022-03-05 15:14 | EXP.UTC ---
Discharge Plan Disposition Patient Disposition: Home, Self-Care Condition: Good Prescriptions Prescriptions: No Action desvenlafaxine succinate [Pristiq] 50 mg tablet extended release 24 hr 50 mg PO DAILY Qty: 30 1RF ergocalciferol (vitamin D2) 1,250 mcg (50,000 unit) capsule 1,250 mcg PO atomoxetine 40 mg capsule 40 mg PO DAILY Qty: 30 1RF pregabalin [Lyrica] 300 mg capsule 300 mg PO BID Qty: 60 2RF promethazine 12.5 mg tablet 12.5 mg PO TID PRN (Reason: nausea and vomiting) Qty: 30 2RF buspirone 10 mg tablet 10 mg PO DAILY Label Comments: TAKE 2 TABLETS BY MOUTH EVERY DAY AT BEDTIME FOR DEPRESSION Referrals Follow up/Referrals: Kadeem Guerrero MD [Primary Care Provider] - See instructions Activity Restrictions/Add. Instructions Additional Instructions/Restrictions: Follow up as advised with Dr Smith or Oral Surgeon Return if needed Straight to ER if any life threatening symptoms Clinical Impressions Clinical Impression: History of dental surgery Discharge ED Provider: Shaugfta Soriano [facility] General Stated complaint: suture falling out Mode of Arrival: Ambulatory Source of Information: Patient Limitations: No Limitations Time Seen by Provider: 03/05/22 15:14 Description of Symptoms (Recalled from Triage Doc. by RN): PATIENT STATES THAT ON MONDAY SHE HAD ORAL SURGERY WITH A BONE GRAFT PER HER DENTIST. TODAY SHE C/O PAIN AND SWELLING TO FACE AND THINKS SHE MAY HAVE A SUTURE MISSING HEENT Symptoms (Recalled from RN notes): Yes Resp Symptoms (Recalled from RN notes): No Skin Symptoms (Recalled from RN notes): No MS Symptoms (Recalled from RN notes): No Functional Status (Recalled from RN notes): WNL Related Data Home Medications Medication Instructions Recorded Confirmed buspirone 10 mg tablet 10 mg PO DAILY Depression 01/10/22 01/31/22 ergocalciferol (vitamin D2) 1,250 1,250 mcg PO 01/19/22 01/31/22 mcg (50,000 unit) capsule Previous Rx's Medication Instructions Recorded atomoxetine 40 mg capsule 40 mg PO DAILY MOOD #30 caps 11/24/21 promethazine 12.5 mg tablet 12.5 mg PO TID PRN nausea and 01/17/22 vomiting #30 tabs pregabalin 300 mg capsule (Lyrica) 300 mg PO BID nerve pain #60 caps 01/26/22 desvenlafaxine succinate 50 mg 50 mg PO DAILY #30 tabs 01/31/22 tablet,extended release 24 hr (Pristiq) Allergies Allergy/AdvReac Type Severity Reaction Status Date / Time No Known Allergies Allergy Verified 01/31/22 13:50 Worker's Comp Is this a Worker's Comp case?: No [facility] Disclaimer: The information contained in this section may have been updated after the patient was seen, as this information can be updated by other users. 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
--- NOTE | 2022-03-05 15:14 | EXP.UTC ---
Discharge Plan Disposition Patient Disposition: Home, Self-Care Condition: Good Prescriptions Prescriptions: No Action desvenlafaxine succinate [Pristiq] 50 mg tablet extended release 24 hr 50 mg PO DAILY Qty: 30 1RF ergocalciferol (vitamin D2) 1,250 mcg (50,000 unit) capsule 1,250 mcg PO atomoxetine 40 mg capsule 40 mg PO DAILY Qty: 30 1RF pregabalin [Lyrica] 300 mg capsule 300 mg PO BID Qty: 60 2RF promethazine 12.5 mg tablet 12.5 mg PO TID PRN (Reason: nausea and vomiting) Qty: 30 2RF buspirone 10 mg tablet 10 mg PO DAILY Label Comments: TAKE 2 TABLETS BY MOUTH EVERY DAY AT BEDTIME FOR DEPRESSION Referrals Follow up/Referrals: Kadeem Guerrero MD [Primary Care Provider] - See instructions Activity Restrictions/Add. Instructions Additional Instructions/Restrictions: Follow up as advised with Dr Smith or Oral Surgeon Return if needed Straight to ER if any life threatening symptoms Clinical Impressions Clinical Impression: History of dental surgery Discharge ED Provider: Shagufta Soriano [facility] General Stated complaint: suture falling out Mode of Arrival: Ambulatory Source of Information: Patient Limitations: No Limitations Time Seen by Provider: 03/05/22 15:14 Description of Symptoms (Recalled from Triage Doc. by RN): PATIENT STATES THAT ON MONDAY SHE HAD ORAL SURGERY WITH A BONE GRAFT PER HER DENTIST. TODAY SHE C/O PAIN AND SWELLING TO FACE AND THINKS SHE MAY HAVE A SUTURE MISSING HEENT Symptoms (Recalled from RN notes): Yes Resp Symptoms (Recalled from RN notes): No Skin Symptoms (Recalled from RN notes): No MS Symptoms (Recalled from RN notes): No Functional Status (Recalled from RN notes): WNL History of Present Illness Provider Complaint: Patient states that she had a dental surgery and bone graph done on Mon by Dr Smith States that she thinks a suture fell out and wanted someone to look at it and states that he give her pain medication but she is out of it and she has been having pain and felt like it was starting to swell States that she tried to call the office and they are out for the holidays and she wasnt sure if we had an oral surgeon here Related Data Home Medications Medication Instructions Recorded Confirmed buspirone 10 mg tablet 10 mg PO DAILY Depression 01/10/22 01/31/22 ergocalciferol (vitamin D2) 1,250 1,250 mcg PO 01/19/22 01/31/22 mcg (50,000 unit) capsule Previous Rx's Medication Instructions Recorded atomoxetine 40 mg capsule 40 mg PO DAILY MOOD #30 caps 11/24/21 promethazine 12.5 mg tablet 12.5 mg PO TID PRN nausea and 01/17/22 vomiting #30 tabs pregabalin 300 mg capsule (Lyrica) 300 mg PO BID nerve pain #60 caps 01/26/22 desvenlafaxine succinate 50 mg 50 mg PO DAILY #30 tabs 01/31/22 tablet,extended release 24 hr (Pristiq) Allergies Allergy/AdvReac Type Severity Reaction Status Date / Time No Known Allergies Allergy Verified 01/31/22 13:50 Worker's Comp Is this a Worker's Comp case?: No [facility] Disclaimer: The information contained in this section may have been updated after the patient was seen, as this information can be updated by other users. 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
== END 2022-03-05 15:33 | disposition home or self-care (01) ==
PROVIDERS: Emergency Provider Nurse Practitioner; PCP Emergency Medicine
DX: Z09 Encounter for follow-up examination after completed treatment for conditions other than malignant neoplasm (principal); Z98.818 Other dental procedure status
CPT/HCPCS: 99212; G0463

== ENCOUNTER → 2022-04-06 17:36 | Outpatient (CLI) | payer OTHER, SELFPAY ==
--- NOTE | 2022-04-06 17:44 | XR_ITS ---
PROCEDURE INFORMATION: Exam: XR Chest Exam date and time: 04/06/2022 5:45 PM Age: 22 years old Clinical indication: Shortness of breath; Patient HX: Asthma, SOA; Additional info: Copd TECHNIQUE: Imaging protocol: Radiologic exam of the chest. Views: 2 views. COMPARISON: CR XR RIBS RT MIN 3V W CXR1V 06/21/2021 11:56 AM FINDINGS: Lungs: Stable small calcified granuloma left upper lobe. Lung turcios are otherwise aerated and clear. No infiltrates. Pleural spaces: Unremarkable. No pleural effusion. No pneumothorax. Heart/Mediastinum: Unremarkable. No cardiomegaly. Bones/joints: Unremarkable. IMPRESSION: Stable chest. No active disease.
== END ==
PROVIDERS: PCP Emergency Medicine; Visit Provider Emergency Medicine
DX: J44.9 Chronic obstructive pulmonary disease, unspecified (principal)
CPT/HCPCS: 71046

== ENCOUNTER → 2022-04-08 10:00 | Outpatient (CLI) | payer OTHER, SELFPAY | PROVIDERS: PCP Emergency Medicine; Visit Provider Emergency Medicine | DX: J44.9 Chronic obstructive pulmonary disease, unspecified (principal) | CPT/HCPCS: 94060; 94618; 94726; 94729 ==

== ENCOUNTER 2022-04-27 10:16 | Emergency (ER) | payer OTHER, SELFPAY ==
[2022-04-27 10:16] VITALS: BP 134/86; PULSE 84; RESP 20; TEMP 36.9; O2SAT 98; BMI 37.2
--- NOTE | 2022-04-27 10:34 | EXP.UTC ---
Discharge Plan Disposition Patient Disposition: Home, Self-Care Condition: Good Prescriptions Prescriptions: New cephalexin 500 mg capsule 500 mg PO QID Qty: 40 0RF mupirocin 2 % ointment 1 applic topical TID 7 Days Qty: 15 0RF No Action trazodone 50 mg tablet 50 mg PO DAILY Qty: 30 1RF atomoxetine [Strattera] 60 mg capsule 60 mg PO DAILY Qty: 30 1RF desvenlafaxine succinate [Pristiq] 100 mg tablet extended release 24 hr 100 mg PO DAILY Qty: 30 1RF ergocalciferol (vitamin D2) 1,250 mcg (50,000 unit) capsule 1,250 mcg PO WEEKLY Qty: 12 0RF promethazine 12.5 mg tablet 12.5 mg PO TID PRN (Reason: nausea and vomiting) Qty: 30 2RF albuterol sulfate 90 mcg/actuation HFA aerosol inhaler 1 puff inhalation QID PRN (Reason: shortness of breath or wheezing) Qty: 8.5 2RF pregabalin [Lyrica] 300 mg capsule 300 mg PO BID Qty: 60 2RF buspirone 10 mg tablet 10 mg PO BID Qty: 60 1RF budesonide-formoterol [Symbicort] 80-4.5 mcg/actuation HFA aerosol inhaler 1 inh inhalation BID Referrals Follow up/Referrals: Kadeem Guerrero MD [Primary Care Provider] - See instructions Activity Restrictions/Add. Instructions Additional Instructions/Restrictions: Keep the affected area clean and dry. Follow up with your regular doctor. Take the antibiotics as directed and apply the topical antibiotics as directed. Apply warm wet compresses to the affected area three or four times per day. GO TO THE ER FOR ANY WORSENING SYMPTOMS Follow up with your graphics coordinator doctor about this. Call them today and make sure they know what's going on. Clinical Impressions Clinical Impression: Abscess of skin Stand Alone Forms Stand Alone Forms: Work/School Release Instructions Patient Instructions: Boil Discharge ED Provider: Mason Kidd [facility] General Stated complaint: cyst in female area Time Seen by Provider: 04/27/22 10:34 History of Present Illness Provider Complaint: She states that she has a boil on her upper right inner thigh that has been present for the past 3 days. She denies fever or chills. She is 17 weeks . Related Data Home Medications Medication Instructions Recorded Confirmed budesonide-formoterol HFA 80 1 inh inhalation BID 04/12/22 mcg-4.5 mcg/actuation aerosol inhaler (Symbicort) Previous Rx's Medication Instructions Recorded atomoxetine 60 mg capsule 60 mg PO DAILY #30 caps 03/28/22 (Strattera) desvenlafaxine succinate 100 mg 100 mg PO DAILY #30 tabs 03/28/22 tablet,extended release 24 hr (Pristiq) trazodone 50 mg tablet 50 mg PO DAILY #30 tabs 03/28/22 albuterol sulfate 90 mcg/actuation 1 puff inhalation QID PRN 04/04/22 aerosol inhaler shortness of breath or wheezing #8.5 grams ergocalciferol (vitamin D2) 1,250 1,250 mcg PO WEEKLY #12 caps 04/04/22 mcg (50,000 unit) capsule pregabalin 300 mg capsule (Lyrica) 300 mg PO BID nerve pain #60 caps 04/04/22 promethazine 12.5 mg tablet 12.5 mg PO TID PRN nausea and 04/04/22 vomiting #30 tabs buspirone 10 mg tablet 10 mg PO BID Depression #60 tabs 04/07/22 cephalexin 500 mg capsule 500 mg PO QID #40 caps 04/27/22 mupirocin 2 % topical ointment 1 applic topical TID 7 days #15 04/27/22 grams Allergies Allergy/AdvReac Type Severity Reaction Status Date / Time No Known Allergies Allergy Verified 04/04/22 10:57 [facility] Disclaimer: The information contained in this section may have been updated after the patient was seen, as this information can be updated by other users. Medical History Asthma Bipolar II disorder Drainage from left ear IBS (irritable bowel syndrome) Impacted cerumen of left ear Insomnia Major depressive disorder Noise-induced hearing loss of both ears Social History Smoking Status: Current every day smoker tobacco type: cigarette
[2022-04-27 11:51] VITALS: BP 134/86; PULSE 84; RESP 20; TEMP 36.9; O2SAT 98
== END 2022-04-27 11:51 | disposition home or self-care (01) ==
PROVIDERS: Emergency Provider Nurse Practitioner Family; PCP Emergency Medicine
DX: O26.892 Other specified pregnancy related conditions, second trimester (principal); L02.415 Cutaneous abscess of right lower limb; Z3A.17 17 weeks gestation of pregnancy
CPT/HCPCS: 99212; 99213; G0463

== ENCOUNTER → 2022-05-30 10:04 | Outpatient (CLI) | payer OTHER, SELFPAY ==
--- NOTE | 2022-05-30 10:08 | XR_ITS ---
FINAL REPORT CLINICAL HISTORY: ankle pain preg..signed paper work and shielded COMPARISON: February 2020 FINDINGS: RIGHT ANKLE: Three views of the right ankle were obtained. There are orthopedic anchors in the distal fibula and distal tibia. There is no acute fracture or dislocation. The joint spaces and mortise are intact. There is no soft tissue abnormality. IMPRESSION: Stable postoperative change. Reviewed, Interpreted and Dictated by Gorge Jasmine MD Transcribed by Alphonse Eddy Authenticated and [facility]
== END ==
PROVIDERS: PCP Emergency Medicine; Visit Provider Podiatrist
DX: M25.571 Pain in right ankle and joints of right foot (principal)
CPT/HCPCS: 73610

== ENCOUNTER → 2022-06-17 12:38 | Outpatient (CLI) | payer OTHER, SELFPAY | PROVIDERS: PCP Emergency Medicine; Visit Provider Internal Medicine Pulmonary Disease | DX: R06.09 Other forms of dyspnea (principal) | CPT/HCPCS: 94762 ==

== ENCOUNTER → 2022-06-29 10:50 | Outpatient (CLI) | payer OTHER, SELFPAY ==
[2022-06-29 16:39] LABS: Amphetamine/Metha Screen,Urine Negative ng/ml (<1000)
[2022-06-29 16:40] LABS: Barbiturates Screen,Urine Negative ng/ml (<200); Benzodiazepines Screen,Urine Negative ng/ml (<200)
[2022-06-29 16:41] LABS: Cannabinoid Screen,Urine Positive ng/ml (<50)
[2022-06-29 16:42] LABS: Cocaine Screen,Urine Negative ng/ml (<300); Methadone Screen,Urine Negative ng/ml (<300)
[2022-06-29 16:43] LABS: Opiate Screen,Urine Negative ng/ml (<300); Phencyclidine Screen,Urine Negative ng/ml (<25)
== END ==
PROVIDERS: PCP Emergency Medicine; Visit Provider Emergency Medicine
DX: Z79.899 Other long term (current) drug therapy (principal)
CPT/HCPCS: 80305

== ENCOUNTER → 2022-07-29 13:29 | Outpatient (CLI) | payer OTHER, SELFPAY ==
--- NOTE | 2022-07-29 13:29 | MR_ITS ---
FINAL REPORT CLINICAL HISTORY: right ankle pain LATERAL ANKLE PAIN SX 3 YEARS AGO FINDINGS: Multiplanar MR imaging of the right ankle was performed without contrast. There are postoperative changes of the distal tibia/fibula. The bony structures are intact without evidence of fracture, bone bruise or marrow edema. No osteochondral lesion is identified. There is irregularity of the anterior talofibular ligament, may represent sequela of prior partial tear. There are small partial tears of the peroneus longus tendon. The posterior plantar aponeurosis is intact. No significant joint effusion is seen. The musculature is intact. There is no evidence of soft tissue mass or cyst. Medial and lateral soft tissue edema is identified. IMPRESSION: Postsurgical changes as detailed above. Irregularity of the anterior talofibular ligament, may represent sequela of prior partial tear. Small partial tears of the peroneus longus tendon. Reviewed, Interpreted and Dictated by Chevy Scott III, MD Transcribed by Nancy Rodas Authenticated and [facility]
== END ==
PROVIDERS: PCP Emergency Medicine; Visit Provider Podiatrist
DX: M25.571 Pain in right ankle and joints of right foot (principal); G89.29 Other chronic pain
CPT/HCPCS: 73721

== ENCOUNTER → 2022-08-26 13:14 | Outpatient (CLI) | payer OTHER, SELFPAY | PROVIDERS: PCP Emergency Medicine; Visit Provider Internal Medicine Pulmonary Disease | DX: R06.02 Shortness of breath (principal) | CPT/HCPCS: 94762 ==

== ENCOUNTER → 2022-08-30 10:05 | Outpatient (CLI) | payer OTHER, SELFPAY ==
--- NOTE | 2022-08-30 10:08 | XR_ITS ---
FINAL REPORT CLINICAL HISTORY: Rt wrist pain COMPARISON: 08/21/2019 FINDINGS: Right wrist Three views were obtained. There is no acute fracture or dislocation. The joint spaces appear normal. No soft tissue abnormality is identified. IMPRESSION: No acute process. Reviewed, Interpreted and Dictated by Gorge Jasmine MD Transcribed by Nancy Rodas Authenticated and [facility]
== END ==
PROVIDERS: PCP Emergency Medicine; Visit Provider Orthopaedic Surgery
DX: M25.531 Pain in right wrist (principal)
CPT/HCPCS: 73110

== ENCOUNTER 2022-08-30 11:45 | Outpatient (RCR) | payer OTHER, SELFPAY | END 2022-08-30 13:00 | disposition home or self-care (01) | LOC: OT 11:45 | PROVIDERS: Visit Provider Orthopaedic Surgery | DX: G56.01 Carpal tunnel syndrome, right upper limb (principal) ==

== ENCOUNTER 2022-10-05 10:30 | Outpatient (RCR) | payer OTHER, SELFPAY ==
--- NOTE | 2022-09-21 16:21 | HMH.PTOPEV ---
PT Outpatient Evaluation Rehab PT Outpatient Evaluation Start: 09/21/22 15:52 Freq: Status: Active Protocol: Document 09/21/22 15:52 EDUAR (Rec: 09/21/22 16:21 PHORKEILA [id number]) E-signed By Lalo Marx, PT Outpatient Therapy Subjective History Subjective History This is the initial PT eval for Bernadette church, 22 yowf who presents with c/o R ankle pain x 8-9 mos with insidious onset of symptoms. She had a prior ankle surgery with ORIf performed. She also had MRI recently which shows R peroneus longus tear. She Reports difficulty with driving, walking, or prolonged standing. She has intermittent tingling in the R ankle, as well. She reports PMH of fibromyalgia, low back pain, and SI jt dysfunction. Chief Complaint Pain Symptom Type Ache,Throb,Sharp,Dull Symptoms Relieved By Rest/Positioning Symptoms Aggravated By Physical Activity Prior Functional Limitations None Current Functional Limitations Driving,Standing,Walking Symptom Description Constant but Variable Level of pain today (0-10) 3 Pain scale - at its worst (0-10) 9 Ankle/Foot Eval Gait Observation General Gait Pattern Observation Antalgic Gait Palpation Tenderness right Ankle/Foot Palpation Findings Tenderness Ankle/Foot Palpation Overall Comment 2/4 peroneal tendons ATF TTP positive PTF TTP negative CF TTP negative Deltoid ligament TTP negative ROM Ankle/Foot Dorsiflexion w/Knee Extended -5 Active Range Motion (degrees) Ankle/Foot Plantar Flexion Active Range 0-52 of Motion (degrees) Ankle/Foot Eversion Active Range of 0-8 Motion (degrees) Ankle/Foot Inversion Active Range of 0-20 Motion (degrees) MMT Ankle Dorsiflexion Strength Grade 4 Good Ankle Plantarflexion Strength Grade 4 Good Foot Eversion Strength Grade 4 Good Foot Inversion Strength Grade 4 Good Outpatient Therapy Assessment Impairments Problems/Impairmments Palpation Tenderness,Impaired Range of Motion,Impaired Strength,Impaired Endurance, Impaired Gait Pattern,Impaired Walking,Impaired Standing, Impaired Driving,Impaired
== END 2022-10-05 10:35 | disposition home or self-care (01) ==
LOC: PT 10:30
PROVIDERS: PCP Emergency Medicine; Visit Provider Podiatrist
DX: M25.571 Pain in right ankle and joints of right foot (principal); M25.371 Other instability, right ankle
CPT/HCPCS: 97163

== ENCOUNTER → 2023-01-30 14:10 | Outpatient (CLI) | payer OTHER, SELFPAY ==
--- NOTE | 2023-01-30 14:16 | XR_ITS ---
FINAL REPORT CLINICAL HISTORY: ankle pain and instability COMPARISON: 05/30/2022 FINDINGS: RIGHT ANKLE 3 views of the right ankle were obtained. There is no acute fracture or dislocation. There are postoperative changes of the distal tibia and fibula. The mortise is intact. Visualized joint spaces are normally aligned. Soft tissues are unremarkable. IMPRESSION: No acute bony abnormality. Reviewed, Interpreted and Dictated by Chevy Scott III, MD Transcribed by Samina Nelson Authenticated and . [facility]
== END ==
PROVIDERS: Visit Provider Podiatrist
DX: M25.571 Pain in right ankle and joints of right foot (principal); M25.371 Other instability, right ankle; G89.29 Other chronic pain
CPT/HCPCS: 73610

== ENCOUNTER 2023-03-21 09:04 | Outpatient (CLI) | payer OTHER, SELFPAY ==
--- NOTE | 2023-03-21 09:05 | MR_ITS ---
FINAL REPORT CLINICAL HISTORY: Ankle pain. HX ANKLE SURGERY 4 YEARS AGO. ROLLED ANKLE AND LATERAL SIDED PAIN COMPARISON: July 2022 FINDINGS: Multiplanar MR imaging of sarita was performed without contrast. Again seen are postoperative changes of the distal tibia and fibula. The bony structures are intact without evidence of fracture, bone bruise or marrow edema. No osteochondral lesion is identified. There is thickening of the anterior talofibular ligament that may represent sequela of prior partial tear. There is peroneus longus, peroneus brevis and posterior tibial tenosynovitis. The posterior plantar aponeurosis is intact. No significant joint effusion is seen. The musculature is intact. There is no evidence of soft tissue mass or cyst. IMPRESSION: Stable postoperative changes. Probable prior partial tear of the anterior talofibular ligament. Peroneal and posterior tibial tenosynovitis. Reviewed, Interpreted and Dictated by Chevy Scott III, MD Transcribed by Alphonse Eddy Authenticated and [facility]
== END 2023-03-21 23:59 ==
LOC: RAD 09:05
PROVIDERS: Visit Provider Podiatrist
DX: M25.571 Pain in right ankle and joints of right foot (principal); G89.29 Other chronic pain; M25.371 Other instability, right ankle
CPT/HCPCS: 73721

== ENCOUNTER 2023-06-19 06:58 | Outpatient (CLI) | payer OTHER, SELFPAY | END 2023-06-19 23:59 | LOC: RAD 06:59 | PROVIDERS: Visit Provider Podiatrist | DX: G90.521 Complex regional pain syndrome I of right lower limb (principal) ==

== ENCOUNTER 2023-06-27 08:55 | Outpatient (CLI) | payer OTHER, SELFPAY ==
--- NOTE | 2023-06-27 09:22 | NM_ITS ---
FINAL REPORT CLINICAL HISTORY: Evaluation of RLE CRPS OF SURGERY FEB 2020 9:20AM 26.0 MCI TC MDP COMPARISON: None FINDINGS: BONE SCAN: A bone scan was performed after the intravenous injection of 26.0 mCi of technetium 99m MDP. Blood flow, immediate, and delayed images were obtained of the lower legs and feet. Both the blood flow and immediate images are unremarkable. The delayed images reveal increased uptake in the left ankle region. Recommend correlation with plain films for further evaluation. IMPRESSION: Mild increased uptake in the delayed images in the region of the left ankle. Recommend correlation with plain films for further evaluation. Reviewed, Interpreted and Dictated by Gorge Jasmine MD Transcribed by Rosario Patterson Authenticated and [facility]
[2023-06-27] MEDS: ISOTOPE MDP (BONE);1 DOSE VIAL IV (09:37)
[2023-06-27] MEDS: SODIUM CHLORIDE 0.9% 10ML SYR (RAD ONLY) 10 ML IV (09:37)
== END 2023-06-27 23:59 | disposition home or self-care (01) ==
LOC: RAD 08:56
PROVIDERS: PCP Podiatrist; Visit Provider Podiatrist
DX: G90.521 Complex regional pain syndrome I of right lower limb (principal)
CPT/HCPCS: 78315; A9503